=== PATIENT | male | born 1955 | race Caucasian/White ===

== ENCOUNTER 2017-07-11 17:05 | Inpatient (IN) ==
[2017-07-11] MEDS ORDERED: Nitroglycerin 0.4 MG TAB.SUBL SL ONE (17:19)
--- NOTE | 2017-07-11 17:22 | Emergency Department Note ---
Disposition Clinical Impression: Hyperglycemia, D-dimer, elevated, Small cell lung cancer Anemia Qualifiers: Anemia type: unspecified type Qualified Code(s): D64.9 - Anemia, unspecified Chest pain Qualifiers: Chest pain type: unspecified Qualified Code(s): R07.9 - Chest pain, unspecified Disposition: Admitted As Inpatient Condition: Fair Referrals: Jt Cárdenas DO [Primary Care Provider] - Forms: ED Satisfaction Letter General Adult HPI - General Chief complaint: ED Chest Pain Stated complaint: Chest Pain Time Seen by Provider: 07/11/17 17:14 Source: EMS Mode of arrival: EMS Limitations: no limitations Nursing Notes Reviewed: Yes Vital Signs Reviewed: Yes - History of Present Illness HPI Narrative: Patient is a 61-year-old male with a past medical history of lung cancer with metastases to the brain presenting to the emergency Department by squad for the complaint of left-sided chest pain that started yesterday morning. The patient states the pain is like a dull/pressure-like pain on his left side that does not radiate and is intermittent. States he does not notice exertion making the pain worse. Positive for nausea and diaphoresis. Denies cardiac history. Patient does not require home oxygen however the squad states that the patient was dropping into the mid 80s, however when instructed to take a deep breath the patient's saturation improved. States that his prognosis for his current cancer is 6 months. Pain Scale: 9 - Related Data Home Medications Medication Instructions Recorded Confirmed Atorvastatin [Lipitor] 40 mg PO HS 05/09/16 05/08/17 Cyanocobalamin (Vitamin B-12) 1,000 mcg SL DAILY 05/09/16 05/08/17 [Vitamin B-12] Quetiapine Fumarate [Seroquel] 400 mg PO HS 05/09/16 05/08/17 clonazePAM [Klonopin] 1 mg PO TID PRN 05/09/16 05/08/17 Acetaminophen [Non-Aspirin] 650 mg PO Q6H PRN 05/08/17 05/08/17 Bisacodyl [Dulcolax] 5 mg PO BID 05/08/17 05/08/17 Bisacodyl [Dulcolax] 10 mg RC DAILY PRN 05/08/17 05/08/17 BuPROPion [Wellbutrin] 75 mg PO DAILY 05/08/17 05/08/17 Dexamethasone 6 mg PO TID 05/08/17 05/08/17 Escitalopram [Lexapro] 20 mg PO DAILY 05/08/17 05/08/17 Famotidine [Heartburn Prevention] 20 mg PO BID 05/08/17 05/08/17 Mirtazapine [Remeron] 30 mg PO HS 05/08/17 05/08/17 Nicotine Patch [Nicoderm] 14 mg TD DAILY 05/08/17 05/08/17 Polyethylene Glycol 3350 [MiraLAX] 17 gm PO BID 05/08/17 05/08/17 Sennosides/Docusate Sodium 2 each PO BID 05/08/17 05/08/17 [Senna-Docusate Sodium Tablet] Tiotropium [Spiriva] 18 mcg IH DAILY 05/08/17 05/08/17 Allergies Allergy/AdvReac Type Severity Reaction Status Date / Time sertraline [From Zoloft] AdvReac See Verified 05/08/17 13:44 Comments All systems ED: reviewed and negative except as stated. Review of Systems: As Per HPI Constitutional: Denies: fever, chills Cardiovascular: Reports: chest pain Respiratory: Reports: dyspnea. Denies: cough Gastrointestinal: Reports: nausea. Denies: abdominal pain, vomiting Past Medical History - Past Medical History Attestation: Yes The following information was validated with the patient. Medical history: Reports: cancer, GERD, hyperlipidemia, other Surgical history: Reports: appendectomy, orthopedic, other Psychiatric history: Reports: anxiety, depression - Social History Smoking Status: Current every day smoker Smokeless Tobacco Status: No Alcohol use: Reports: none Drug use: Reports: none Physical Exam CONSTITUTIONAL: Patient is cachectic in appearance; A&O X 3, in no apparent distress. HEAD: Normocephalic; atraumatic EYES: PERRL, no scleral icterus NOSE: The nose is normal in appearance without rhinorrhea NECK: No JVD or distended neck veins RESP: Normal excursion, patient has wheezes bilaterally with coarse breath sounds. CARD: Tachycardia, regular rhythm, without murmurs, rub or gallop. ABD: Non-distended; non-tender, soft, without rigidity, rebound or guarding,no pulsatile mass CHEST: No pain with palpation SKIN: Normal for age and race; warm and dry without diaphoresis ; no apparent lesions EXTREMITIES: Pulses are 2 plus and equal times 4 extremities, peripheral edema of 1+ pitting bilaterally. No calf muscle pain - General Limitations: no limitations General appearance: alert, in no apparent distress Course Course Narrative: Plan is to perform a cardiac workup of the patient which will include chest x- ray, EKG and troponin. Due to the patient's tachycardia, cancer history and hypoxia we will order a d-dimer to evaluate for PE. Patient was also ordered aspirin and nitroglycerin trial for his chest pain. Patient also had course lung sounds bilaterally with wheezing we will order him a DuoNeb treatment and reevaluate. - Reevaluation(s) Reevaluation #1: Patient found to have an elevated d-dimer a CTA of the chest was ordered. Hemoglobin was critical at 5.7 a type and screen was ordered and packed red blood cell transfusion was ordered. Patient also had an elevated glucose in the 500s. Will consider giving subcutaneous insulin to decrease blood glucose Time: 18:55 Reevaluation #2: Patient signed out to night team. Pending labs discussed. Pending CTA chest and blood transfusion. 2 pRBC ordered. Time: 18:56 Vital Signs Temperature 97.4 F L 07/11/17 17:09 Pulse Rate 101 07/11/17 17:09 Respiratory Rate 20 07/11/17 17:09 Blood Pressure 122/62 07/11/17 17:09 O2 Sat by Pulse Oximetry 100 07/11/17 17:09 Temperature 97.4 F L 07/11/17 17:09 Pulse Rate 113 07/11/17 18:06 Respiratory Rate 18 07/11/17 18:27 Blood Pressure 102/60 07/11/17 18:06 O2 Sat by Pulse Oximetry 94 07/11/17 18:27 Oxygen Delivery Oxygen Delivery Nasal Cannula Medical Decision Making - Medical Records Medical records reviewed: Yes I reviewed the patient's medical records. - Lab Data Lab results reviewed: Yes I reviewed the patient's lab results. Result diagrams: 07/11/17 17:42 07/11/17 17:42 Lab Results 07/11/17 07/11/17 07/11/17 Range/Units 17:42 17:42 17:42 WBC 23.5 H (4.3-11.1) K/mcL RBC 1.84 L (4.19-5.50) M/mcL Hgb 5.6 L* (12.9-16.9) g/dL Hct 19.3 L (37.5-50.1) % MCV 104.9 H (83.0-100.0) fL MCH 30.4 (28.0-33.3) pg MCHC 29.0 L (31.6-35.5) g/dL RDW 18.4 H (11.5-14.5) % Plt Count 520 H (140-400) K/mcL MPV 10.2 (9.4-12.4) fL Seg Neutrophils % 77.0 % Band Neutrophils % 5.0 H (0-4) % Lymphocytes % 11.0 % Monocytes % 3.0 % Metamyelocytes % 2.0 H (0) % Myelocytes % 1.0 H (0) % Promyelocytes % 1.0 H (0) % Neutrophils # 19.3 H (1.6-8.9) K/mcL Lymphocytes # 2.6 (0.6-4.6) K/mcL Monocytes # 0.7 (0.0-1.3) K/mcL Nucleated RBCs/100 WBC 6.0 H (0) /100 WBC Platelet Estimate Increased H (Normal) Polychromasia 2+ A (Not Present) Hypochromasia Present A (Not Present) Anisocytosis 2+ A (Not Present) D-Dimer (0-500) ng/mLFEU Sodium 141 (136-145) mEq/L Potassium 3.4 L (3.5-5.1) mEq/L Chloride 105 (98-107) mEq/L Carbon Dioxide 21 L (23-29) mEq/L BUN 14 (8-23) mg/dL Creatinine 0.77 (0.70-1.30) mg/dL Est GFR ( Amer) > 60 (> 60) Est GFR (Non-Af Amer) > 60 (> 60) BUN/Creatinine Ratio 18 (6-26) Glucose 516 H* (70-105) mg/dL Calculated Osmolality 316 H (280-300) Calcium 7.9 L (8.6-10.3) mg/dL Troponin I 0.03 (< 0.04) ng/mL B-Natriuretic Peptide 94 (Less than 100) pg/mL 07/11/17 Range/Units 17:42 WBC (4.3-11.1) K/mcL RBC (4.19-5.50) M/mcL Hgb (12.9-16.9) g/dL Hct (37.5-50.1) % MCV (83.0-100.0) fL MCH (28.0-33.3) pg MCHC (31.6-35.5) g/dL RDW (11.5-14.5) % Plt Count (140-400) K/mcL MPV (9.4-12.4) fL Seg Neutrophils % % Band Neutrophils % (0-4) % Lymphocytes % % Monocytes % % Metamyelocytes % (0) % Myelocytes % (0) % Promyelocytes % (0) % Neutrophils # (1.6-8.9) K/mcL Lymphocytes # (0.6-4.6) K/mcL Monocytes # (0.0-1.3) K/mcL Nucleated RBCs/100 WBC (0) /100 WBC Platelet Estimate (Normal) Polychromasia (Not Present) Hypochromasia (Not Present) Anisocytosis (Not Present) D-Dimer 1936 H (0-500) ng/mLFEU Sodium (136-145) mEq/L Potassium (3.5-5.1) mEq/L Chloride (98-107) mEq/L Carbon Dioxide (23-29) mEq/L BUN (8-23) mg/dL Creatinine (0.70-1.30) mg/dL Est GFR ( Amer) (> 60) Est GFR (Non-Af Amer) (> 60) BUN/Creatinine Ratio (6-26) Glucose (70-105) mg/dL Calculated Osmolality (280-300) Calcium (8.6-10.3) mg/dL Troponin I (< 0.04) ng/mL B-Natriuretic Peptide (Less than 100) pg/mL - Radiology Data Radiology results reviewed: Yes I reviewed the patient's radiology results. Chest X-Ray 07/11/17 17:19 IMPRESSION: Nonspecific opacities left upper lobe and right lung base may be related to pneumonia. Calcific atherosclerotic disease aorta. Sequela from old granulomatous disease. D/ / Gavin Quezada / Gavin Quezada Interpreting Provider: Gavin Quezada - EKG Data EKG #1 EKG attestation: Yes I reviewed and interpreted this EKG. EKG results narrative: EKG done at 17:14 shows sinus tachycardia with occasional PVC. Normal axis. OR is 159, QRS is 86, QT is 313 and QTc is 372 these are within normal limits. No signs of ST elevation, depression or Q waves present nonspecific ST and T- wave abnormalities. EKG is mostly unchanged from prior EKG done on 05/01/2017. Joan - Joan Transition of Care: To Dr. Griffith [facility] ED resident. Situation: Demographics, MOA Background: Presenting Complaint, Relevant PMH, Meds, & Allergies Assessment: Vital Signs, Course and respsone to treatment, Exam Concerns, Patient/Family Expectation, Pertinant Lab Results, Outstanding Labs Recommendation: Barrier(s) to disposition, Recommendation based on pending studies, treatments, or consults SAustin Report Given to: Dr. Gladis Franco Repor Time: 19:00
[2017-07-11] MEDS ORDERED: Ipratropium/Albuterol Neb 3 ML IH ONE (17:44)
[2017-07-11 18:15] LABS: Mean Platelet Volume 10.2 fL (9.4-12.4)
[2017-07-11 18:16] LABS: Hematocrit 19.3 % (37.5-50.1); Mean Corpuscular Hemoglobin 30.4 pg (28.0-33.3); Mean Corpuscular Volume 104.9 fL (83.0-100.0); Monocytes # 0.7 K/mcL (0.0-1.3); Platelet Count 520 K/mcL (140-400); Red Blood Count 1.84 M/mcL (4.19-5.50); Red Cell Distribution Width 18.4 % (11.5-14.5)
--- NOTE | 2017-07-11 18:32 | Emergency Department Note ---
START Narrative - START START: I examined this patient and my medical decision-making was reviewed with the SNACK STEWARDESS/PA/Advanced Practice Nurse/Resident Physician. I agree with the documented findings, disposition and treatment plan as described except to the extent set forth below. Patient does have lung cancer was has metastasized to brain and presents today with chest pain or shortness of breath and a d-dimer is elevated and a CTA will be done and the patient will have his evaluation continued. I did review the EKG. Test results are pending. [id number]
[2017-07-11 18:34] LABS: Troponin I 0.03 ng/mL (< 0.04)
[2017-07-11 18:41] LABS: BUN/Creatinine Ratio 18 (6-26); Blood Urea Nitrogen 14 mg/dL (8-23); Calcium 7.9 mg/dL (8.6-10.3); Carbon Dioxide 21 mEq/L (23-29); Chloride 105 mEq/L (98-107); Glucose 516 mg/dL (70-105); Osmolality,Calculated 316 (280-300); Potassium 3.4 mEq/L (3.5-5.1); Sodium 141 mEq/L (136-145); eGFR For African Americans > 60 (> 60); eGFR For Non-African Americans > 60 (> 60)
[2017-07-11 18:46] LABS: Hemoglobin 5.6 g/dL (12.9-16.9)
[2017-07-11] MEDS ORDERED: 0.9 % Sodium Chloride 1,000 ML IVC ONE (18:47)
[2017-07-11] MEDS ORDERED: 0.9 % Sodium Chloride 1,000 ML ONE (18:48)
[2017-07-11 18:51] LABS: Lymphocytes # 2.6 K/mcL (0.6-4.6); Neutrophils # 19.3 K/mcL (1.6-8.9)
[2017-07-11 18:52] LABS: Anisocytosis 2+ (Not Present); Hypochromasia Present (Not Present); Platelet Estimate Increased (Normal); Polychromasia 2+ (Not Present)
--- NOTE | 2017-07-11 19:10 | Emergency Department Note ---
Disposition Clinical Impression: Hyperglycemia, D-dimer, elevated, Small cell lung cancer Anemia Qualifiers: Anemia type: unspecified type Qualified Code(s): D64.9 - Anemia, unspecified Chest pain Qualifiers: Chest pain type: unspecified Qualified Code(s): R07.9 - Chest pain, unspecified Pneumonia Qualifiers: Pneumonia type: due to unspecified organism Laterality: left Lung location: upper lobe of lung Qualified Code(s): J18.1 - Lobar pneumonia, unspecified organism Disposition: Admitted As Inpatient Condition: Fair Time of Disposition: 21:56 Chest Pain HPI - General Chief Complaint: ED Chest Pain Stated Complaint: Chest Pain Time Seen by Provider: 07/11/17 17:14 Source: EMS Mode of arrival: EMS Limitations: no limitations Vital Signs Reviewed: Yes Nursing Notes Reviewed: Yes - History of Present Illness Severity scale (1-10): 9 - Related Data Home Medications Medication Instructions Recorded Confirmed Atorvastatin [Lipitor] 40 mg PO HS 05/09/16 05/08/17 Cyanocobalamin (Vitamin B-12) 1,000 mcg SL DAILY 05/09/16 05/08/17 [Vitamin B-12] Quetiapine Fumarate [Seroquel] 400 mg PO HS 05/09/16 05/08/17 clonazePAM [Klonopin] 1 mg PO TID PRN 05/09/16 05/08/17 Acetaminophen [Non-Aspirin] 650 mg PO Q6H PRN 05/08/17 05/08/17 Bisacodyl [Dulcolax] 5 mg PO BID 05/08/17 05/08/17 Bisacodyl [Dulcolax] 10 mg RC DAILY PRN 05/08/17 05/08/17 BuPROPion [Wellbutrin] 75 mg PO DAILY 05/08/17 05/08/17 Dexamethasone 6 mg PO TID 05/08/17 05/08/17 Escitalopram [Lexapro] 20 mg PO DAILY 05/08/17 05/08/17 Famotidine [Heartburn Prevention] 20 mg PO BID 05/08/17 05/08/17 Mirtazapine [Remeron] 30 mg PO HS 05/08/17 05/08/17 Nicotine Patch [Nicoderm] 14 mg TD DAILY 05/08/17 05/08/17 Polyethylene Glycol 3350 [MiraLAX] 17 gm PO BID 05/08/17 05/08/17 Sennosides/Docusate Sodium 2 each PO BID 05/08/17 05/08/17 [Senna-Docusate Sodium Tablet] Tiotropium [Spiriva] 18 mcg IH DAILY 05/08/17 05/08/17 Allergies Allergy/AdvReac Type Severity Reaction Status Date / Time sertraline [From Zoloft] AdvReac See Verified 05/08/17 13:44 Comments Constitutional: Denies: fever, chills Cardiovascular: Reports: chest pain Respiratory: Reports: dyspnea. Denies: cough Gastrointestinal: Reports: nausea. Denies: abdominal pain, vomiting Chest Pain PMH - Past Medical History Medical history: Reports: cancer, GERD, hyperlipidemia, other Surgical history: Reports: appendectomy, orthopedic, other Psychiatric history: Reports: anxiety, depression - Social History Smoking Status: Current every day smoker Alcohol use: Reports: none Drug use: Reports: none Physical Exam - General Limitations: no limitations General appearance: alert, in no apparent distress - Head Head exam: atraumatic, normocephalic, normal inspection - Eye Eye exam: Present: PERRL, EOMI - ENT ENT exam: normal exam, normal oropharynx, mucous membranes moist - Neck Neck exam: Present: normal inspection, full ROM, trachea midline - Chest Chest inspection: Present: normal inspection, symmetric chest wall rise - Respiratory Respiratory exam: Present: normal lung sounds bilaterally - Cardiovascular Cardiovascular exam: Present: normal rhythm, tachycardia, normal heart sounds - Abdominal Exam Abdominal exam: Present: soft, Non-Tender. Absent: tenderness, distention, guarding, rebound, rigidity - Extremities Exam Extremities exam: Present: normal inspection, full ROM. Absent: tenderness, pedal edema - Neurological Exam Neurological exam: Present: alert, oriented X3 - Psychiatric Psychiatric exam: Present: normal affect, normal mood - Skin Skin exam: Present: warm, dry, intact, normal color Course Course Narrative: Patient was a sign out from a previous team, Dr. Reyes and Dr. Conde. Please see their notes for any additional details. Patient mildly tachycardic. Otherwise, the rest of the vitals were within normal limits. Physical exam shows a mildly cachectic male with pallor. In summary, patient is a 61-year-old male with a history of lung cancer with metastases to the brain that presented today due to left-sided chest discomfort that started yesterday morning, described as a dull pressure with no radiation some nausea and diaphoresis and worsened with exertion, some association with shortness of breath. Patient was found to have anemia on workup. He has been typed and screened and has 2 units of blood ordered by previous team. Currently waiting on a CTA of the chest and they will admit for anemia and chest pain. 21:57 CT was negative for pulmonary embolism but did show possible left upper lobe pneumonia. He also has pulmonary nodules present. He does have a known history of small cell lung cancer. Results were discussed with the patient. We will admit the patient for chest pain rule out, anemia, pneumonia. Chest X-Ray 07/11/17 17:19 IMPRESSION: Nonspecific opacities left upper lobe and right lung base may be related to pneumonia. Calcific atherosclerotic disease aorta. Sequela from old granulomatous disease. D/ / Gavin Quezada / Gavin Quezada Interpreting Provider: Gavin Quezada Chest CTA 07/11/17 18:28 IMPRESSION: 1. No evidence of pulmonary embolism. 2. Area of consolidation in the left upper lobe suspicious for pneumonia. 3. Emphysema. 4. Previously seen pulmonary lesion in the left upper lobe is currently obscured by the consolidation. Recommend follow-up chest CT after resolution of acute symptoms to assess stability. 5. A 0.8 cm pulmonary nodule in the medial left lower lobe. 6. Stable low-density lesion in visualized liver dome. Etiology is uncertain. Consider further assessment with dedicated liver protocol CT or MRI for further characterization as indicated. 7. Mildly enlarged mediastinal and left hilar lymph nodes. Some are calcified and may represent sequela of prior granulomatous disease. D/ / 07/11/2017 20:20:05 Aren Garcia MD / adrienne Interpreting Provider: Aren Garcia MD Vital Signs Temperature 97.4 F L 07/11/17 17:09 Pulse Rate 101 07/11/17 17:09 Respiratory Rate 20 07/11/17 17:09 Blood Pressure 122/62 07/11/17 17:09 O2 Sat by Pulse Oximetry 100 07/11/17 17:09 Temperature 97.9 F 07/11/17 22:48 Pulse Rate 97 07/11/17 22:48 Respiratory Rate 21 07/11/17 22:48 Blood Pressure 109/66 07/11/17 22:48 O2 Sat by Pulse Oximetry 100 07/11/17 21:15 Oxygen Delivery Oxygen Delivery Nasal Cannula Chest Pain - MDM Narrative Medical decision making narrative: Patient was a sign out from a previous team, Dr. Reyes and Dr. Conde. Please see their notes for any additional details. Patient mildly tachycardic. Otherwise, the rest of the vitals were within normal limits. Physical exam shows a mildly cachectic male with pallor. In summary, patient is a 61-year-old male with a history of lung cancer with metastases to the brain that presented today due to left-sided chest discomfort that started yesterday morning, described as a dull pressure with no radiation some nausea and diaphoresis and worsened with exertion, some association with shortness of breath. Patient was found to have anemia on workup. He has been typed and screened and has 2 units of blood ordered by previous team. Currently waiting on a CTA of the chest and they will admit for anemia and chest pain. 21:57 CT was negative for pulmonary embolism but did show possible left upper lobe pneumonia. He also has pulmonary nodules present. He does have a known history of small cell lung cancer. Results were discussed with the patient. We will admit the patient for chest pain rule out, anemia, pneumonia. - Medical Records Medical records reviewed: Yes I reviewed the patient's medical records. - Lab Data Lab results reviewed: Yes I reviewed the patient's lab results. Result diagrams: 07/11/17 17:42 07/11/17 17:42 Lab Results 07/11/17 07/11/17 07/11/17 Range/Units 17:42 17:42 17:42 WBC 23.5 H (4.3-11.1) K/mcL RBC 1.84 L (4.19-5.50) M/mcL Hgb 5.6 L* (12.9-16.9) g/dL Hct 19.3 L (37.5-50.1) % MCV 104.9 H (83.0-100.0) fL MCH 30.4 (28.0-33.3) pg MCHC 29.0 L (31.6-35.5) g/dL RDW 18.4 H (11.5-14.5) % Plt Count 520 H (140-400) K/mcL MPV 10.2 (9.4-12.4) fL Seg Neutrophils % 77.0 % Band Neutrophils % 5.0 H (0-4) % Lymphocytes % 11.0 % Monocytes % 3.0 % Metamyelocytes % 2.0 H (0) % Myelocytes % 1.0 H (0) % Promyelocytes % 1.0 H (0) % Neutrophils # 19.3 H (1.6-8.9) K/mcL Lymphocytes # 2.6 (0.6-4.6) K/mcL Monocytes # 0.7 (0.0-1.3) K/mcL Nucleated RBCs/100 WBC 6.0 H (0) /100 WBC Platelet Estimate Increased H (Normal) Polychromasia 2+ A (Not Present) Hypochromasia Present A (Not Present) Anisocytosis 2+ A (Not Present) D-Dimer (0-500) ng/mLFEU Sodium 141 (136-145) mEq/L Potassium 3.4 L (3.5-5.1) mEq/L Chloride 105 (98-107) mEq/L Carbon Dioxide 21 L (23-29) mEq/L BUN 14 (8-23) mg/dL Creatinine 0.77 (0.70-1.30) mg/dL Est GFR ( Amer) > 60 (> 60) Est GFR (Non-Af Amer) > 60 (> 60) BUN/Creatinine Ratio 18 (6-26) Glucose 516 H* (70-105) mg/dL Calculated Osmolality 316 H (280-300) Calcium 7.9 L (8.6-10.3) mg/dL Troponin I 0.03 (< 0.04) ng/mL B-Natriuretic Peptide 94 (Less than 100) pg/mL Blood Type Antibody Screen Crossmatch 07/11/17 07/11/17 Range/Units 17:42 19:35 WBC (4.3-11.1) K/mcL RBC (4.19-5.50) M/mcL Hgb (12.9-16.9) g/dL Hct (37.5-50.1) % MCV (83.0-100.0) fL MCH (28.0-33.3) pg MCHC (31.6-35.5) g/dL RDW (11.5-14.5) % Plt Count (140-400) K/mcL MPV (9.4-12.4) fL Seg Neutrophils % % Band Neutrophils % (0-4) % Lymphocytes % % Monocytes % % Metamyelocytes % (0) % Myelocytes % (0) % Promyelocytes % (0) % Neutrophils # (1.6-8.9) K/mcL Lymphocytes # (0.6-4.6) K/mcL Monocytes # (0.0-1.3) K/mcL Nucleated RBCs/100 WBC (0) /100 WBC Platelet Estimate (Normal) Polychromasia (Not Present) Hypochromasia (Not Present) Anisocytosis (Not Present) D-Dimer 1936 H (0-500) ng/mLFEU Sodium (136-145) mEq/L Potassium (3.5-5.1) mEq/L Chloride (98-107) mEq/L Carbon Dioxide (23-29) mEq/L BUN (8-23) mg/dL Creatinine (0.70-1.30) mg/dL Est GFR ( Amer) (> 60) Est GFR (Non-Af Amer) (> 60) BUN/Creatinine Ratio (6-26) Glucose (70-105) mg/dL Calculated Osmolality (280-300) Calcium (8.6-10.3) mg/dL Troponin I (< 0.04) ng/mL B-Natriuretic Peptide (Less than 100) pg/mL Blood Type O POSITIVE Antibody Screen NEGATIVE Crossmatch See Detail - Radiology Data Radiology results reviewed: Yes I reviewed the patient's radiology results. Chest X-Ray 07/11/17 17:19 IMPRESSION: Nonspecific opacities left upper lobe and right lung base may be related to pneumonia. Calcific atherosclerotic disease aorta. Sequela from old granulomatous disease. D/ / Gavin Quezada / Gavin Quezada Interpreting Provider: Gavni Quezada Chest CTA 07/11/17 18:28 IMPRESSION: 1. No evidence of pulmonary embolism. 2. Area of consolidation in the left upper lobe suspicious for pneumonia. 3. Emphysema. 4. Previously seen pulmonary lesion in the left upper lobe is currently obscured by the consolidation. Recommend follow-up chest CT after resolution of acute symptoms to assess stability. 5. A 0.8 cm pulmonary nodule in the medial left lower lobe. 6. Stable low-density lesion in visualized liver dome. Etiology is uncertain. Consider further assessment with dedicated liver protocol CT or MRI for further characterization as indicated. 7. Mildly enlarged mediastinal and left hilar lymph nodes. Some are calcified and may represent sequela of prior granulomatous disease. D/ / 07/11/2017 20:20:05 Aren Garcia MD / adrienne Interpreting Provider: Aren Garcia MD Critical Care Time Critical Care Time: Yes Total Critical Care Time: 60 Attestation: Critical care performed: Time is exclusive of separately billable procedures. Time includes: direct patient care, patient reassessment, coordination of patient care, interpretation of data (laboratory data, radiology data, and respiratory data), review of patient's medical records, medical consultation and documentation of patient care. Procedures included in critical care time: Procedures excluded from critical care time: S.B.A.R. - Brain.Alex.ARula Situation: Demographics, MOA Background: Presenting Complaint, Relevant PMH, Meds, & Allergies Assessment: Vital Signs, Course and respsone to treatment, Exam Concerns, Patient/Family Expectation, Pertinant Lab Results, Outstanding Labs Recommendation: Barrier(s) to disposition, Recommendation based on pending studies, treatments, or consults S.B.A.RMai Report Given to: Dr. Dread Franco Repor Time: 22:15 Attestation Statement - Attestation Attestation: I, Simeon Ely MD, personally evaluated this patient and discussed their management with the resident physician. I reviewed the resident's note and agree with the documented findings, medical decision making, and plan of care. This patient was signed out at shift change from Dr. Headley and Dr. Conde. Please refer to their notes for complete details of the history and physical examination. Patient has history of lung cancer with brain metastases. He is not receiving any chemotherapy or radiation. He presented for some chest pain and increased shortness of breath. At shift change patient is awaiting a CTA of the lungs. Patient was found to be anemic with a hemoglobin of 5 and blood is already been ordered. On examination patient is a well-developed thin male in no acute distress. He is alert and appropriate but is a little slow to answer questions and seems mildly confused. There is no cyanosis or diaphoresis. Mucous membranes are moist. Breath sounds are decreased bilaterally. Heart regular. Abdomen soft and nontender. Labs reviewed. CTA negative for pulmonary embolism. This showed left upper lobe consolidation. The hospitalist, Dr. Canada, was consulted and accepted admission of the patient.
[2017-07-11] MEDS ORDERED: Piperacillin/Tazobactam 3.375 GM in 0.9 % Sodium Chloride Mini Bag 100 ML IVPB ONE (21:11)
[2017-07-12] MEDS ORDERED: OXYCODONE Oral CONC 10 MG/0.5 ML ORAL.SYG SL PRN (01:04)
[2017-07-12] MEDS ORDERED: Naloxone 0.4 MG/ML INJ IVP PRN (01:04)
[2017-07-12] MEDS ORDERED: Dextrose Gel 15 GM PO PRN ×2 (01:10)
[2017-07-12] MEDS ORDERED: *HR* Dextrose 50 % in Water (Syg) 50 ML SYRINGE IVP PRN (01:10)
[2017-07-12] MEDS ORDERED: D5% in Water 1,000 ML IVC PRN (01:10)
--- NOTE | 2017-07-12 01:23 | Internal Med History&Physical ---
Date of Encounter: 07/12/17 Time of Encounter: 00:05 Assessment and Plan (1) DVT prophylaxis Current visit: Yes Status: Acute EPCD (2) GI bleed Current visit: Yes Status: Acute Patient has weakness and that dizziness.Drop of the hemoglobin level. Has a black stool 2 days ago. Consider GI bleeding. - FOBT - Keep patient nothing by mouth, IV fluid, IV PPI - Closely monitor vitals and H&H - We will consult GI or surgery for possible EGD. 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 We will consult palliative care to discuss hospice option with patient. (4) Anemia Current visit: Yes Status: Acute Acute anemia possibly due to acute blood loss from GI bleed. Continue PRBC transfusion. Closely monitor H&H Qualifiers: Anemia type: unspecified type Qualified Code(s): D64.9 - Anemia, unspecified (5) Chest pain Current visit: Yes Status: Acute Patient has chest and epigastric area pain most likely due to lung cancer. Will rule out ACS by - Continue cardiac monitoring - Track 3 sets of troponin Qualifiers: Chest pain type: unspecified Qualified Code(s): R07.9 - Chest pain, unspecified (6) Hyperglycemia Current visit: Yes Status: Acute Glucose level over 500 in ER. Patient denies history of diabetes. Will place patient on sliding scale insulin and check hemoglobin A1c a.m. (7) D-dimer, elevated Current visit: Yes Status: Acute Patient has CTA, negative for PE (8) Pneumonia Current visit: Yes Status: Acute CTA shows left upper lobe pneumonia. We will treat the patient with Vanco and Zosyn for healthcare associated pneumonia. - We will give patient supportive treatment with oxygen. Qualifiers: Pneumonia type: due to unspecified organism Laterality: left Lung location: upper lobe of lung Qualified Code(s): J18.1 - Lobar pneumonia, unspecified organism Internal Medicine - H&P: HPI Chief complaint: Weakness Admitted From: Home Plans for Post Hospital Care: Home History of present illness: Mr. Quintero is a 61 year old male with history of small cell lung cancer with brain metastasis present to ER for generalized weakness for 1 day. Patient has generalized weakness for long time because of cancer but worsening today. Patient feels dizzy, lightheaded, nausea, but no vomiting. Patient has a chronic abdominal and the chest pain because of cancer. Today, he feels the pain is getting worse. Patient has a nonproductive cough. He has no fever. He has no diarrhea. His last bowel movement was 2 days ago, he said the stool color is black. In emergency room, he was a found hemoglobin low to 5.6, which was normal 2 months ago. Patient also was found d-dimer positive, following CTA shows no PE but pneumonia. Patient was admitted for healthcare associated pneumonia. I have discussed the CODE STATUS with patient. She clearly told me that he does not want CPR if cardiac arrest happens. He accepted intubation for several days if necessary but said he does not want "on the machine" for long time. DNR CCA placed based on patient's wish. Past Med Surg Social Fam HX - Past Medical History Medical history: cancer, GERD, hyperlipidemia, other Psychiatric history: anxiety, depression - Past Surgical History Surgical History: appendectomy, orthopedic, other - Social History Smoking Status: Current every day smoker Smokeless Tobacco Status: No Alcohol use: none Drug use: none - Family History Mother History Unknown: Yes Internal Medicine - H&P: Meds Atorvastatin [Lipitor] 40 mg PO HS 05/09/16 [History] Cyanocobalamin (Vitamin B-12) [Vitamin B-12] 1,000 mcg SL DAILY 05/09/16 [ History] Quetiapine Fumarate [Seroquel] 400 mg PO HS 05/09/16 [History] clonazePAM [Klonopin] 1 mg PO TID PRN 05/09/16 [History] Acetaminophen [Non-Aspirin] 650 mg PO Q6H PRN 05/08/17 [History] Bisacodyl [Dulcolax] 5 mg PO BID 05/08/17 [History] Bisacodyl [Dulcolax] 10 mg RC DAILY PRN 05/08/17 [History] BuPROPion [Wellbutrin] 75 mg PO DAILY 05/08/17 [History] Dexamethasone 6 mg PO TID 05/08/17 [History] Escitalopram [Lexapro] 20 mg PO DAILY 05/08/17 [History] Famotidine [Heartburn Prevention] 20 mg PO BID 05/08/17 [History] Mirtazapine [Remeron] 30 mg PO HS 05/08/17 [History] Nicotine Patch [Nicoderm] 14 mg TD DAILY 05/08/17 [History] Polyethylene Glycol 3350 [MiraLAX] 17 gm PO BID 05/08/17 [History] Sennosides/Docusate Sodium [Senna-Docusate Sodium Tablet] 2 each PO BID [History] Tiotropium [Spiriva] 18 mcg IH DAILY 05/08/17 [History] 3 Allergy/AdvReac Type Severity Reaction Status Date / Time sertraline [From Zoloft] AdvReac See Verified 05/08/17 13:44 Comments All Systems PM: A 10-system review of systems was performed and is negative for pertinent findings except as documented above in the HPI. - Constitutional Vitals: Temp Pulse Resp BP Pulse Ox 97.9 F 87 16 105/62 100 07/11/17 23:54 07/11/17 23:54 07/11/17 23:54 07/11/17 23:54 07/11/17 23:54 General appearance: Present: A&O X 3, no acute distress, answers questions appropriately - Head Head exam: Present: atraumatic, normocephalic - Eye Eye exam: Present: PERRL, conjuntiva pink, sclera anicteric Pupils: Present: PERRL - Neck Neck exam general surgery: Present: supple, trachea midline. Absent: lymphadenopathy - Respiratory Respiratory exam: Present: CTAB. Absent: accessory muscle use, rales, rhonchi, wheezes - Cardiovascular Cardiovascular exam: Present: RRR, +S1, +S2. Absent: diastolic murmur, gallop, rubs, systolic murmur - GI/Abdominal GI/Abdominal exam: Present: normal bowel sounds, soft, tenderness (Tenderness on the Epigastric area), no peritoneal signs. Absent: distended - Extremities Exam Extremities exam: Present: warm, radial pulses palpable and symmetrical. Absent : calf tenderness, cyanotic, pedal edema - Neurological Exam Neurological exam: Present: CN II-XII intact, oriented X3, no focal deficits. Absent: pronater drift, facial droop, speech deficit - Skin Skin exam: Present: dry, intact Internal Med - H&P Results - Labs CBC & Chem 7: 07/11/17 17:42 03/16/18 17:42 - EKG Data -: EKG Interpreted by Myself EKG shows normal: sinus rhythm Rate: tachycardia
[2017-07-12 02:26] LABS: BUN/Creatinine Ratio 17 (6-26); Blood Urea Nitrogen 11 mg/dL (8-23); Calcium 7.2 mg/dL (8.6-10.3); Carbon Dioxide 24 mEq/L (23-29); Chloride 107 mEq/L (98-107); Glucose 428 mg/dL (70-105); Magnesium 1.8 mg/dL (1.6-2.6); Osmolality,Calculated 306 (280-300); Potassium 3.3 mEq/L (3.5-5.1); Sodium 139 mEq/L (136-145); eGFR For African Americans > 60 (> 60); eGFR For Non-African Americans > 60 (> 60)
[2017-07-12] MEDS ORDERED: Ipratropium/Albuterol Neb 3 ML IH PRN (02:28)
[2017-07-12 02:29] LABS: Basophils % 0.3 %; Eosinophils % 0.1 %; Hematocrit 25.1 % (37.5-50.1); Hemoglobin 7.9 g/dL (12.9-16.9); Immature Granulocytes % 4.6 % (0-4); Lymphocytes # 2.2 K/mcL (0.6-4.6); Lymphocytes % 13.7 %; Mean Corpuscular HGB Conc 31.5 g/dL (31.6-35.5); Mean Corpuscular Hemoglobin 29.6 pg (28.0-33.3); Mean Platelet Volume 9.9 fL (9.4-12.4); Monocytes # 0.6 K/mcL (0.0-1.3); Monocytes % 3.6 %; Neutrophils # 12.4 K/mcL (1.6-8.9); Nucleated Red Blood Cells 7.7 /100 WBC (0); Platelet Count 353 K/mcL (140-400); Red Blood Count 2.67 M/mcL (4.19-5.50); Red Cell Distribution Width 17.1 % (11.5-14.5); Segmented Neutrophils % 77.7 %
[2017-07-12] MEDS ORDERED: 0.9 % Sodium Chloride 250 ML ONE (03:28)
[2017-07-12] MEDS: Ipratropium/Albuterol Neb 3 ML IH SCH ×4 (04:07→22:08)
[2017-07-12] MEDS: Pantoprazole 40 MG VIAL IVP SCH ×2 (05:54→18:23)
[2017-07-12] MEDS: Insulin LISPRO 300 UNITS/3 ML VIAL SQ SCH ×3 (05:54→18:23)
[2017-07-12 07:16] LABS: Hematocrit 27.8 % (37.5-50.1); Hemoglobin 9.1 g/dL (12.9-16.9)
[2017-07-12] MEDS: Piperacillin/Tazobactam 3.375 GM in 0.9 % Sodium Chloride Mini Bag 100 ML IVPB SCH ×2 (11:34→18:22)
[2017-07-12] MEDS: Hydrocortisone Sodium Succ 100 MG/2 ML VIAL IVP SCH ×2 (11:34→18:22)
[2017-07-12] MEDS: 0.9 % Sodium Chloride 1,000 ML IVC SCH ×2 (11:53→20:56)
--- NOTE | 2017-07-12 12:37 | General Surgery Consult Note ---
Date of Encounter: 07/12/17 Time of Encounter: 12:13 History of Present Illness Consult date: 07/12/17 Reason for consult: other (melena; anemia) Requesting physician: Santino William History of present illness: Called to see patient melena and profound anemia with hemoglobin 5.6, hematocrit 19.3. Hemoglobin and hematocrit 05/01/1812.8/42.3. Patient has a known medical history of lung cancer with brain metastases who was transferred to [facility] Emergency Department by squad for complaints of left-sided chest pain. There was also reported nausea and diaphoresis. The evaluation included CTA chest which demonstrated no evidence of pulmonary embolism; multiple borderline enlarged mediastinal lymph nodes, enlarged left hilar lymph nodes and moderate centrilobular emphysema and consolidation in the left upper lobe. The consolidation of the left upper lobe is stable from a previous study and apparently obscures a previously visualized lung lesion/cancer in the left upper lobe. The patient has been admitted and transfused with 3 units packed red cells. Hemoglobin is currently 9.1 with hematocrit 28.7. The patient apparently has been on steroids (dexamethasone) for his metastatic disease; review of the patient's medication list indicates that he is on famotidine 20 mg by mouth twice a day. Other significant medical history notable for PTSD, bipolar disorder; anxiety, depression, GERD, hyperlipidemia Surgical history: Appendectomy, orthopedic procedures, and left inguinal hernia repair with mesh 05/17/16. Social history: Admitted smoker one pack per day for over 40 years; no acknowledged alcohol or drug use. On physical examination this is a 61-year-old patient who appears older than his stated age. He is in no acute distress Skin is warm, dry; without obvious jaundice Lungs: Breath sounds and rales left lung; right site clear Cardiac: Regular rate, no appreciable murmur Abdomen: Soft, nondistended, nontender. No appreciable hepatosplenomegaly or intra-abdominal masses. No rebound. Active bowel sounds Bilateral groins and pubic area notable for multiple nodules and wounds - possibly cutaneous metastases Extremities: Decubiti bilateral medial knees Laboratories: White count 23.5 on presentation; repeat 15.9. Most recent hemoglobin 9.1, hematocrit 27.8. Platelet count 353,000. PT INR dated 05/01/17 did not demonstrate evidence of anticoagulation no recent data is available Electrolytes notable for potassium of 3.3, other lecture lites, BUN, creatinine within normal limits. Impression: 61-year-old male, resident of a retirement transferred to [facility] by squad for complaints of left-sided chest pain. She has a known history of lung cancer with brain metastases. CODE STATUS DNR COMFORT CARE ARREST. Patient with new onset melena consistent with an upper GI source. The patient was recently diagnosed with pneumonia and is on steroids increasing risk of PUD causing the patient's acute blood loss anemia and melena. Treatment options include EGD with appropriate intervention such as cautery, administration of epinephrine, application of hemoclips. Risks of such procedure include further hemorrhage infection, aspiration, respiratory failure , and perforation. Should such a complication develop surgical intervention would then become necessary which is well beyond the patient's wishes as indicated by his CODE STATUS. Alternatively, the patient can be managed medically such as Protonix infusion and monitored. This was discussed with the patient in detail. He has chosen to defer invasive therapy such as EGD. Recommendations: Resume diet (full liquids) Monitor H&H Provide comfort care Consult palliative care/hospice Possible EGD in AM if patient demonstrates hemodynamic instability / continued bleeding and patient consents to the procedure Past Med Surg Social Fam HX - Past Medical History Medical history: cancer, GERD, hyperlipidemia, other Psychiatric history: anxiety, depression - Past Surgical History Surgical History: appendectomy, orthopedic, other - Social History Smoking Status: Current every day smoker Packs per day: 1 Smokeless Tobacco Status: No Alcohol use: none Drug use: none - Family History Mother History Unknown: Yes Medications and Allergies Atorvastatin [Lipitor] 40 mg PO HS 05/09/16 [History] Cyanocobalamin (Vitamin B-12) [Vitamin B-12] 1,000 mcg SL DAILY 05/09/16 [ History] Quetiapine Fumarate [Seroquel] 400 mg PO HS 05/09/16 [History] clonazePAM [Klonopin] 1 mg PO TID PRN 05/09/16 [History] Acetaminophen [Non-Aspirin] 650 mg PO Q6H PRN 05/08/17 [History] Bisacodyl [Dulcolax] 5 mg PO BID 05/08/17 [History] Bisacodyl [Dulcolax] 10 mg RC DAILY PRN 05/08/17 [History] BuPROPion [Wellbutrin] 75 mg PO DAILY 05/08/17 [History] Escitalopram [Lexapro] 20 mg PO DAILY 05/08/17 [History] Famotidine [Heartburn Prevention] 20 mg PO BID 05/08/17 [History] Mirtazapine [Remeron] 30 mg PO HS 05/08/17 [History] Umeclidinium Boswell [Incruse Ellipta] 1 puff IH DAILY 07/12/17 [History] 3 Allergy/AdvReac Type Severity Reaction Status Date / Time sertraline [From Zoloft] AdvReac Diarrhea Verified 07/12/17 09:27 Review of Systems All systems PM: The remainder of the systems were reviewed and are negative General Surgery Exam Initial Vital Signs Temp Pulse Resp BP Pulse Ox 97.4 F L 101 20 122/62 100 07/11/17 17:09 07/11/17 17:09 07/11/17 17:09 07/11/17 17:09 07/11/17 17:09 Exam Initial Vital Signs Temp Pulse Resp BP Pulse Ox 97.4 F L 101 20 122/62 100 07/11/17 17:09 07/11/17 17:09 07/11/17 17:09 07/11/17 17:09 07/11/17 17:09 Results - Labs 07/12/17 07:04 07/12/17 01:54 Abnormal lab results WBC 15.9 K/mcL (4.3-11.1) H 07/12/17 01:54 RBC 2.67 M/mcL (4.19-5.50) L 07/12/17 01:54 Hgb 9.1 g/dL (12.9-16.9) L 07/12/17 07:04 Hct 27.8 % (37.5-50.1) L 07/12/17 07:04 MCHC 31.5 g/dL (31.6-35.5) L 07/12/17 01:54 RDW 17.1 % (11.5-14.5) H 07/12/17 01:54 Immature Gran % 4.6 % (0-4) H 07/12/17 01:54 Band Neutrophils % 5.0 % (0-4) H 07/11/17 17:42 Metamyelocytes % 2.0 % (0) H 07/11/17 17:42 Myelocytes % 1.0 % (0) H 07/11/17 17:42 Promyelocytes % 1.0 % (0) H 07/11/17 17:42 Neutrophils # 12.4 K/mcL (1.6-8.9) H 07/12/17 01:54 Nucleated RBCs/100 WBC 7.7 /100 WBC (0) H 07/12/17 01:54 Platelet Estimate Increased (Normal) H 07/11/17 17:42 Polychromasia 2+ (Not Present) A 07/11/17 17:42 Hypochromasia Present (Not Present) A 07/11/17 17:42 Anisocytosis 2+ (Not Present) A 07/11/17 17:42 D-Dimer 1936 ng/mLFEU (0-500) H 07/11/17 17:42 Potassium 3.3 mEq/L (3.5-5.1) L 07/12/17 01:54 Creatinine 0.64 mg/dL (0.70-1.30) L 07/12/17 01:54 Glucose 428 mg/dL (70-105) H 07/12/17 01:54 POC Glucose 106 (58-89) H 07/12/17 11:00 Calculated Osmolality 306 (280-300) H 07/12/17 01:54 Calcium 7.2 mg/dL (8.6-10.3) L 07/12/17 01:54 Diabetes panel 07/12/17 Range/Units 01:54 Sodium 139 (136-145) mEq/L Potassium 3.3 L (3.5-5.1) mEq/L Chloride 107 (98-107) mEq/L Carbon Dioxide 24 (23-29) mEq/L BUN 11 (8-23) mg/dL Creatinine 0.64 L (0.70-1.30) mg/dL Glucose 428 H (70-105) mg/dL Calcium 7.2 L (8.6-10.3) mg/dL Calcium panel 07/12/17 Range/Units 01:54 Calcium 7.2 L (8.6-10.3) mg/dL Pituitary panel 07/12/17 Range/Units 01:54 Sodium 139 (136-145) mEq/L Potassium 3.3 L (3.5-5.1) mEq/L Chloride 107 (98-107) mEq/L Carbon Dioxide 24 (23-29) mEq/L BUN 11 (8-23) mg/dL Creatinine 0.64 L (0.70-1.30) mg/dL Glucose 428 H (70-105) mg/dL Calcium 7.2 L (8.6-10.3) mg/dL Adrenal panel 07/12/17 Range/Units 01:54 Sodium 139 (136-145) mEq/L Potassium 3.3 L (3.5-5.1) mEq/L Chloride 107 (98-107) mEq/L Carbon Dioxide 24 (23-29) mEq/L BUN 11 (8-23) mg/dL Creatinine 0.64 L (0.70-1.30) mg/dL Glucose 428 H (70-105) mg/dL Calcium 7.2 L (8.6-10.3) mg/dL All other labs normal. Consult Discharge Plan - Plan Referrals: Jt Cárdenas DO [Primary Care Provider] -
[2017-07-12 13:39] LABS: Basophils # 0.1 K/mcL (0.0-0.2); Basophils % 0.3 %; Eosinophils % 0.1 %; Hemoglobin 9.8 g/dL (12.9-16.9); Lymphocytes # 1.9 K/mcL (0.6-4.6); Lymphocytes % 10.8 %; Mean Corpuscular HGB Conc 32.7 g/dL (31.6-35.5); Mean Corpuscular Hemoglobin 29.8 pg (28.0-33.3); Mean Corpuscular Volume 91.2 fL (83.0-100.0); Monocytes # 0.5 K/mcL (0.0-1.3); Neutrophils # 14.7 K/mcL (1.6-8.9); Nucleated Red Blood Cells 5.5 /100 WBC (0); Platelet Count 295 K/mcL (140-400); Red Blood Count 3.29 M/mcL (4.19-5.50); Red Cell Distribution Width 17.9 % (11.5-14.5); Segmented Neutrophils % 82.8 %
[2017-07-12 19:46] LABS: Hematocrit 26.4 % (37.5-50.1); Hemoglobin 8.5 g/dL (12.9-16.9)
[2017-07-13] MEDS: Piperacillin/Tazobactam 3.375 GM in 0.9 % Sodium Chloride Mini Bag 100 ML IVPB SCH ×3 (00:05→15:57)
[2017-07-13] MEDS: Hydrocortisone Sodium Succ 100 MG/2 ML VIAL IVP SCH ×3 (00:05→15:57)
--- NOTE | 2017-07-13 00:23 | Internal Med Progress Note ---
Date of Encounter: 07/12/17 Time of Encounter: 15:07 - Assessment and plan (1) Abscess of skin Current Visit: Yes Status: Acute Assessment and plan: Multiple tiny abscesses/comedones on body. Will use warm compresses and routine wound care. No need for antibiotics for this due to insignificant size. Qualifiers: Site of cutaneous abscess: other site Qualified Code(s): L02.818 - Cutaneous abscess of other sites (2) Skin ulcer Current Visit: Yes Status: Acute Assessment and plan: Multiple ulcerated areas on front and back side. Continue routine wound care. Qualifiers: Non-pressure ulcer stage: limited to breakdown of skin Qualified Code(s): L98.491 - Non-pressure chronic ulcer of skin of other sites limited to breakdown of skin (3) Acute metabolic encephalopathy Current Visit: Yes Status: Acute Assessment and plan: Patient alert but not fully oriented. Likely multifactorial, given blood loss, hyperglycemia, and extensive cancer history with metastasis. Will continue supportive care and treat underlying causes. (4) Anemia Current Visit: Yes Status: Acute Assessment and plan: Improved this AM after blood transfusions. Likely secondary to GI bleed. See plan below. Qualifiers: Anemia type: unspecified type Qualified Code(s): D64.9 - Anemia, unspecified (5) Chest pain Current Visit: Yes Status: Resolved Assessment and plan: Patient had chest and epigastric area pain most likely due to lung cancer. Cardiac enzymes trended negative. Continue telemetry. Qualifiers: Chest pain type: unspecified Qualified Code(s): R07.9 - Chest pain, unspecified (6) D-dimer, elevated Current Visit: Yes Status: Acute Assessment and plan: CT angio negative for pulmonary embolism. (7) DVT prophylaxis Current Visit: Yes Status: Acute Assessment and plan: Continue SCDs. Will hold off on anticoagulation due to suspected GI bleed. (8) GI bleed Current Visit: Yes Status: Acute Assessment and plan: Keep NPO. GI/surgery consulted; appreciate input. Continue IVF. Continue IV protonix. Monitor vitals closely. H/H improved this AM after transfusions. Patient unsure about what measures he wants done. He is DNR/CCA, but may elect for procedures that increase comfort, and stopping a bleed may be one of them. Repeat CBC in AM. Qualifiers: GI bleed type/associated pathology: melena Qualified Code(s): K92.1 - Melena (9) Hyperglycemia Current Visit: Yes Status: Acute Assessment and plan: No previous history of DM. Will continue accuchecks and SSI QID AC/HS. Repeat BMP in AM. (10) Pneumonia Current Visit: Yes Status: Acute Assessment and plan: CTA showed left upper lobe pneumonia. Continue Vancomycin and Zosyn for healthcare associated pneumonia. Continue supplemental O2 PRN. 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 We will consult palliative care on Friday to discuss hospice option with patient. - Time Spent With Patient 25 - 35 minutes - Subjective Interval history: Patient had no acute events overnight. He states that he is feeling "ok" at this time. He has no complaints. I discussed consulting GI and considering EGD to determine source of bleeding and stopping it. He states that he does not want anything done. However, when discussed further he states that he may want it done. He also may not be fully competent at this time due to some confusion. - Constitutional Vitals: Temp Pulse Resp BP Pulse Ox 98.0 F 86 17 114/66 95 07/12/17 23:10 07/12/17 23:10 07/12/17 23:10 07/12/17 23:10 07/12/17 23:10 General appearance: Present: cooperative, A&O X 2, pleasant, no acute distress, answers questions appropriately - Respiratory Respiratory exam: Present: CTAB. Absent: accessory muscle use, rales, rhonchi, wheezes Additional comments: Normal WOB - Cardiovascular Cardiovascular exam: Present: RRR, +S1, +S2. Absent: diastolic murmur, gallop, rubs, systolic murmur Additional comments: No BLE edema - GI/Abdominal GI/Abdominal exam: Present: normal bowel sounds, soft. Absent: distended, hepatomegaly, mass, splenomegaly, tenderness - Psychiatric Psychiatric exam: Present: normal affect, normal mood. Absent: anxious, depressed - Skin Skin exam: Present: dry, warm. Absent: cyanosis, rash Additional comments: Multiple fluctuant, erythematous, raised areas with surrounding induration on left pelvic area likely representing tiny abscesses. Area of ulceration on left pelvic area and back side with no drainage or bleeding. Internal Medicine: Result - Labs CBC & Chem 7: 07/12/17 19:25 07/12/17 01:54 Labs: Short CBC 07/12/17 07/12/17 07/12/17 Range/Units 01:54 07:04 13:26 WBC 15.9 H 17.8 H (4.3-11.1) K/mcL Hgb 7.9 L D 9.1 L 9.8 L (12.9-16.9) g/dL Hct 25.1 L 27.8 L 30.0 L (37.5-50.1) % Plt Count 353 295 (140-400) K/mcL Neutrophils # 12.4 H 14.7 H (1.6-8.9) K/mcL 07/12/17 Range/Units 19:25 WBC (4.3-11.1) K/mcL Hgb 8.5 L (12.9-16.9) g/dL Hct 26.4 L (37.5-50.1) % Plt Count (140-400) K/mcL Neutrophils # (1.6-8.9) K/mcL BMP 07/12/17 01:54 Sodium 139 Potassium 3.3 L Chloride 107 Carbon Dioxide 24 BUN 11 Creatinine 0.64 L Glucose 428 H Calcium 7.2 L Cardiac Enzymes 07/12/17 07/12/17 Range/Units 01:54 07:04 Troponin I < 0.03 < 0.03 (< 0.04) ng/mL - ABG Interpretation ABG results: PT/INR, D-dimer D-Dimer 1936 ng/mLFEU (0-500) H 07/11/17 17:42 - VTE Reasons for not Prescribing Prophylaxis: Medical contraindication (Suspected GI bleed with anemia) Documentation of Mechanical Device: Intermittent pneumatic compression device Consult Discharge Plan - Plan Referrals: Jt Cárdenas DO [Primary Care Provider] -
[2017-07-13] MEDS: Insulin LISPRO 300 UNITS/3 ML VIAL SQ SCH ×4 (00:46→23:54)
[2017-07-13] MEDS: Ipratropium/Albuterol Neb 3 ML IH SCH ×4 (04:00→21:51)
[2017-07-13 05:11] LABS: Basophils % 0.1 %; Hematocrit 26.6 % (37.5-50.1); Hemoglobin 8.3 g/dL (12.9-16.9); Immature Granulocytes % 2.3 % (0-4); Lymphocytes # 1.6 K/mcL (0.6-4.6); Lymphocytes % 16.2 %; Mean Corpuscular HGB Conc 31.2 g/dL (31.6-35.5); Mean Corpuscular Hemoglobin 29.2 pg (28.0-33.3); Mean Corpuscular Volume 93.7 fL (83.0-100.0); Mean Platelet Volume 9.9 fL (9.4-12.4); Monocytes # 0.3 K/mcL (0.0-1.3); Monocytes % 2.8 %; Neutrophils # 7.6 K/mcL (1.6-8.9); Nucleated Red Blood Cells 3.3 /100 WBC (0); Platelet Count 299 K/mcL (140-400); Red Blood Count 2.84 M/mcL (4.19-5.50); Red Cell Distribution Width 18.6 % (11.5-14.5); Segmented Neutrophils % 78.6 %
[2017-07-13] MEDS: Pantoprazole 40 MG VIAL IVP SCH ×2 (05:16→18:02)
[2017-07-13 05:30] LABS: BUN/Creatinine Ratio 19 (6-26); Blood Urea Nitrogen 11 mg/dL (8-23); Calcium 7.2 mg/dL (8.6-10.3); Carbon Dioxide 23 mEq/L (23-29); Chloride 111 mEq/L (98-107); Glucose 247 mg/dL (70-105); Osmolality,Calculated 296 (280-300); Potassium 3.4 mEq/L (3.5-5.1); Sodium 139 mEq/L (136-145); eGFR For African Americans > 60 (> 60); eGFR For Non-African Americans > 60 (> 60)
[2017-07-13] MEDS: 0.9 % Sodium Chloride 1,000 ML IVC SCH ×2 (07:28→18:02)
[2017-07-13 09:36] LABS: Estimated Average Glucose 209 mg/dl; Hemoglobin A1C 8.9 %
--- NOTE | 2017-07-13 10:18 | General Surgery Progress Note ---
Date of Encounter: 07/13/17 Time of Encounter: 10:05 Subjective Narrative: General Surgery Covering Gastroenterology Patient indicating that he does not want further intervention or invasive diagnostic procedures, including EGD Most recent Hemoglobin 8.3/hematocrit 26.6- essentially stable ranging from 8.3-9.8. Recommendation: Resume diet as tolerated Comfort Care as needed Objective Vital Signs - Last 8 Hours Temp Pulse Resp BP Pulse Ox 07/13/17 07:29 97.8 F 56 18 105/64 98 07/13/17 04:01 20 96 07/13/17 03:29 97.5 F L 67 18 103/69 97 Intake and Output 07/12/17 07/13/17 07/13/17 23:59 07:59 15:59 Intake Total 1880 / 1880 1350 / 1350 Output Total 450 / 450 0 / 0 Balance 1430 / 1430 1350 / 1350 Intake: IV Fluids 1100 / 1100 1350 / 1350 0.9 % Sodium Chloride 1,000 ML 1000 / 1000 1000 / 1000 @ 100 mls/hr IVC .Q10H DAVID Rx#: [id number] Zosyn 3.375 GM In 0.9 % Sodium 100 / 100 100 / 100 Chloride (Mini-Bag +) 100 ML @ 25 mls/hr IVPB Q8HR DAVID Rx#: [id number] Vancocin 1,250 MG In 0.9 % 250 / 250 Sodium Chloride 250 ML @ 166.67 mls/hr IVPB Q12H DAVID Rx#: [id number] Oral 780 / 780 0 / 0 Output: Urine 450 / 450 0 / 0 Other: Meal Dinner Percent of Meal Consumed 100% # Urine Diapers 1 Blood Glucose* 391 260 - Labs 07/13/17 04:34 07/13/17 04:34 Diabetes panel 07/13/17 Range/Units 04:34 Sodium 139 (136-145) mEq/L Potassium 3.4 L (3.5-5.1) mEq/L Chloride 111 H (98-107) mEq/L Carbon Dioxide 23 (23-29) mEq/L BUN 11 (8-23) mg/dL Creatinine 0.58 L (0.70-1.30) mg/dL Glucose 247 H (70-105) mg/dL Calcium 7.2 L (8.6-10.3) mg/dL Calcium panel 07/13/17 Range/Units 04:34 Calcium 7.2 L (8.6-10.3) mg/dL Pituitary panel 07/13/17 Range/Units 04:34 Sodium 139 (136-145) mEq/L Potassium 3.4 L (3.5-5.1) mEq/L Chloride 111 H (98-107) mEq/L Carbon Dioxide 23 (23-29) mEq/L BUN 11 (8-23) mg/dL Creatinine 0.58 L (0.70-1.30) mg/dL Glucose 247 H (70-105) mg/dL Calcium 7.2 L (8.6-10.3) mg/dL Adrenal panel 07/13/17 Range/Units 04:34 Sodium 139 (136-145) mEq/L Potassium 3.4 L (3.5-5.1) mEq/L Chloride 111 H (98-107) mEq/L Carbon Dioxide 23 (23-29) mEq/L BUN 11 (8-23) mg/dL Creatinine 0.58 L (0.70-1.30) mg/dL Glucose 247 H (70-105) mg/dL Calcium 7.2 L (8.6-10.3) mg/dL - VTE Reasons for not Prescribing Prophylaxis: Medical contraindication (Suspected GI bleed with anemia) Documentation of Mechanical Device: Intermittent pneumatic compression device Consult Discharge Plan - Plan Referrals: Jt Cárdenas DO [Primary Care Provider] -
[2017-07-13] MEDS ORDERED: D5% in Water 1,000 ML IVC PRN (19:27)
[2017-07-13] MEDS ORDERED: *HR* Dextrose 50 % in Water (Syg) 50 ML SYRINGE IVP PRN (19:27)
[2017-07-13] MEDS ORDERED: Dextrose Gel 15 GM PO PRN ×2 (19:27)
[2017-07-13] MEDS: *HR* OxyCODONE/APAP 5/325 TABLET PO PRN (19:44)
[2017-07-14] MEDS: Piperacillin/Tazobactam 3.375 GM in 0.9 % Sodium Chloride Mini Bag 100 ML IVPB SCH ×3 (00:15→16:50)
[2017-07-14] MEDS: Insulin DETEMIR 100 UNIT/ML X5UNITS SQ SCH ×3 (00:16→20:55)
[2017-07-14] MEDS: Hydrocortisone Sodium Succ 100 MG/2 ML VIAL IVP SCH ×4 (00:16→20:54)
[2017-07-14 00:18] LABS: Hematocrit 25.6 % (37.5-50.1); Hemoglobin 8.2 g/dL (12.9-16.9)
--- NOTE | 2017-07-14 00:34 | Event Note ---
Date of Encounter: 07/13/17 Time of Encounter: 20:29 Alerted by pts. nurse regarding pts. hyperglycemia. Patient on Solu-Cortef IV and glucose ranging from high 400s to low 500s. Ordered sliding scale with 9 units to be given at bedtime. After administration patient's blood glucose remained in low 400s. Nurse verified patient has been eating meals so Levemir 10 units SQ twice a day ordered with first dose to be given tonight with BG checks every 2 hours. Patient admitted with GI bleeding as well an H&H had slight drop this evening. Timed H&H's ordered. Pt. to be monitored closely for continued hyperglycemia and changes in H/H.
[2017-07-14] MEDS: Ipratropium/Albuterol Neb 3 ML IH SCH ×4 (03:52→22:36)
[2017-07-14 04:14] LABS: Basophils % 0.1 %; Hematocrit 26.4 % (37.5-50.1); Hemoglobin 8.4 g/dL (12.9-16.9); Immature Granulocytes % 1.6 % (0-4); Lymphocytes # 1.4 K/mcL (0.6-4.6); Lymphocytes % 17.9 %; Mean Corpuscular HGB Conc 31.8 g/dL (31.6-35.5); Mean Corpuscular Volume 94.3 fL (83.0-100.0); Mean Platelet Volume 9.9 fL (9.4-12.4); Monocytes # 0.3 K/mcL (0.0-1.3); Monocytes % 3.4 %; Neutrophils # 5.9 K/mcL (1.6-8.9); Nucleated Red Blood Cells 1.6 /100 WBC (0); Platelet Count 327 K/mcL (140-400); Red Cell Distribution Width 19.6 % (11.5-14.5)
[2017-07-14 04:34] LABS: BUN/Creatinine Ratio 20 (6-26); Blood Urea Nitrogen 13 mg/dL (8-23); Calcium 7.1 mg/dL (8.6-10.3); Carbon Dioxide 22 mEq/L (23-29); Chloride 111 mEq/L (98-107); Glucose 297 mg/dL (70-105); Osmolality,Calculated 297 (280-300); Potassium 3.9 mEq/L (3.5-5.1); Sodium 138 mEq/L (136-145); eGFR For African Americans > 60 (> 60); eGFR For Non-African Americans > 60 (> 60)
[2017-07-14] MEDS: Pantoprazole 40 MG VIAL IVP SCH ×2 (05:32→16:49)
--- NOTE | 2017-07-14 08:08 | Internal Med Progress Note ---
Date of Encounter: 07/13/17 Time of Encounter: 17:07 - Assessment and plan (1) Abscess of skin Current Visit: Yes Status: Acute Assessment and plan: Multiple tiny abscesses/comedones on body. Will use warm compresses and routine wound care. On vancomycin and zosyn for pneumonia as per below. Qualifiers: Site of cutaneous abscess: other site Qualified Code(s): L02.818 - Cutaneous abscess of other sites (2) Skin ulcer Current Visit: Yes Status: Acute Assessment and plan: Multiple ulcerated areas on front and back side. Continue routine wound care. Qualifiers: Non-pressure ulcer stage: limited to breakdown of skin Qualified Code(s): L98.491 - Non-pressure chronic ulcer of skin of other sites limited to breakdown of skin (3) Acute metabolic encephalopathy Current Visit: Yes Status: Resolved Assessment and plan: Patient alert and fully oriented today. Was likely multifactorial, given blood loss, hyperglycemia, and extensive cancer history with metastasis. Will continue supportive care and treat underlying causes. (4) Anemia Current Visit: Yes Status: Acute Assessment and plan: Stable this AM. S/P 2 units PRBCs after admission. Likely secondary to GI bleed. See plan below. Qualifiers: Anemia type: unspecified type Qualified Code(s): D64.9 - Anemia, unspecified (5) Chest pain Current Visit: Yes Status: Resolved Assessment and plan: Patient had chest and epigastric area pain most likely due to lung cancer. Cardiac enzymes trended negative. Continue telemetry. Qualifiers: Chest pain type: unspecified Qualified Code(s): R07.9 - Chest pain, unspecified (6) D-dimer, elevated Current Visit: Yes Status: Acute Assessment and plan: CT angio negative for pulmonary embolism. (7) DVT prophylaxis Current Visit: Yes Status: Acute Assessment and plan: Continue SCDs. Will hold off on anticoagulation due to suspected GI bleed. (8) GI bleed Current Visit: Yes Status: Acute Assessment and plan: Keep NPO. GI/surgery consulted; appreciate input. Continue IVF. Continue IV protonix. Monitor vitals closely. H/H improved this AM after transfusions. Patient unsure about what measures he wants done. He is DNR/CCA, but may elect for procedures that increase comfort, and stopping a bleed may be one of them. Repeat CBC in AM. Qualifiers: GI bleed type/associated pathology: melena Qualified Code(s): K92.1 - Melena (9) Hyperglycemia Current Visit: Yes Status: Acute Assessment and plan: No previous history of DM. Will continue accuchecks and SSI QID AC/HS. Start diabetic diet per surgery. Repeat BMP in AM. (10) Pneumonia Current Visit: Yes Status: Acute Assessment and plan: CTA showed left upper lobe pneumonia. Continue Vancomycin and Zosyn for healthcare associated pneumonia. Continue supplemental O2 PRN. 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 We will consult palliative care on Friday to discuss hospice options with patient. - Time Spent With Patient less than 15 minutes - Subjective Interval history: Patient had no acute events overnight. He states that he is feeling better today. He has no complaints. He seems more alert and oriented; conversing appropriately today. He tells me that he spoke with surgeon and does not want anything invasive done. He still wants to talk to palliative care. - Constitutional Vitals: Temp Pulse Resp BP Pulse Ox 97.8 F 65 16 114/72 94 07/14/17 07:03 07/14/17 07:03 07/14/17 07:03 07/14/17 07:03 07/14/17 07:03 General appearance: Present: cooperative, A&O X 2, pleasant, no acute distress, answers questions appropriately - Respiratory Respiratory exam: Present: CTAB. Absent: accessory muscle use, rales, rhonchi, wheezes Additional comments: Normal WOB - Cardiovascular Cardiovascular exam: Present: RRR, +S1, +S2. Absent: diastolic murmur, gallop, rubs, systolic murmur Additional comments: No BLE edema - GI/Abdominal GI/Abdominal exam: Present: normal bowel sounds, soft. Absent: distended, hepatomegaly, mass, splenomegaly, tenderness - Psychiatric Psychiatric exam: Present: normal affect, normal mood. Absent: anxious, depressed - Skin Skin exam: Present: dry, warm. Absent: cyanosis, rash Additional comments: Multiple fluctuant, erythematous, raised areas with surrounding induration on left pelvic area likely representing tiny abscesses. Area of ulceration on left pelvic area and back side with no drainage or bleeding. Internal Medicine: Result - Labs CBC & Chem 7: 07/14/17 02:59 07/14/17 02:59 Labs: Short CBC 07/13/17 07/14/17 Range/Units 23:57 02:59 WBC 7.7 (4.3-11.1) K/mcL Hgb 8.2 L 8.4 L (12.9-16.9) g/dL Hct 25.6 L 26.4 L (37.5-50.1) % Plt Count 327 (140-400) K/mcL Neutrophils # 5.9 (1.6-8.9) K/mcL BMP 07/14/17 02:59 Sodium 138 Potassium 3.9 Chloride 111 H Carbon Dioxide 22 L BUN 13 Creatinine 0.66 L Glucose 297 H Calcium 7.1 L - ABG Interpretation ABG results: PT/INR, D-dimer D-Dimer 1936 ng/mLFEU (0-500) H 07/11/17 17:42 - VTE Reasons for not Prescribing Prophylaxis: Medical contraindication (Suspected GI bleed with anemia) Documentation of Mechanical Device: Intermittent pneumatic compression device Consult Discharge Plan - Plan Referrals: Jt Cárdenas DO [Primary Care Provider] -
[2017-07-14] MEDS: Insulin LISPRO 300 UNITS/3 ML VIAL SQ SCH ×4 (08:20→20:55)
[2017-07-14] MEDS: *HR* OxyCODONE/APAP 5/325 TABLET PO PRN ×2 (08:30→20:54)
--- NOTE | 2017-07-14 09:25 | Palliative - Consult Note ---
<Ash [employer] - Last Filed: 07/14/17 14:23> Date of Encounter: 07/14/17 Time of Encounter: 09:13 - Assessment and Plan (1) Goals of care, counseling/discussion Current Visit: Yes Status: Acute Assessment and plan: Patient lives by himself and his closest family members live in [place]. He does not have a POA, but does have a living will. Plan: Dr. Benedict has spoken with patient extensively about various options regarding hospice care, what it entails, and options for hospice services in this area. At this time, patient states that he would like to think about whether or not he is interested in hospice care at this time. We will see him again tomorrow and continue with these discussions as needed. (2) Anemia Current Visit: Yes Status: Acute Assessment and plan: Symptomatic anemia secondary to suspected G.I. bleed. Patient has been seen by general surgery, and he has opted out of receiving any invasive procedures at this time. Patient is currently on Protonix b.i.d. and is being medically managed. s/p transfusion after units packed red blood cells. Qualifiers: Anemia type: unspecified type Qualified Code(s): D64.9 - Anemia, unspecified (3) GI bleed Current Visit: Yes Status: Acute Assessment and plan: Plan as above. Qualifiers: GI bleed type/associated pathology: melena Qualified Code(s): K92.1 - Melena (4) Pneumonia Current Visit: Yes Status: Acute Assessment and plan: CTA showed areas of consolidation and left upper lobe. Patient is on vancomycin and Zosyn. Management per primary service. Qualifiers: Pneumonia type: due to unspecified organism Laterality: left Lung location: upper lobe of lung Qualified Code(s): J18.1 - Lobar pneumonia, unspecified organism (5) DVT prophylaxis Current Visit: Yes Status: Acute Assessment and plan: EP CD Palliative-CN HPI - Data of Consult Patient: new to practice Consult date: 07/14/17 Requesting Physician: Santino William Primary Care Provider: Jt Cárdenas, DO - Consult Narrative Palliative Care/Comfort Measures: Hospice care Reason for consult: discuss hospice care History of present illness: Mr. Quintero is a 61 year old male with past medical history of small cell lung cancer with metastasis to the brain, GRD, HLD, G.I. bleed. Patient arrived to [facility] on 07/12/17 with symptomatic anemia and was found to have hemoglobin of 5.6 , with complaints of chest pain. He was given 3 units packed red blood cells. Patient complained of new onset melena and consult to general surgery was made. Suspected source of bleeding is upper G.I. Option for EGD was given to the patient, however patient chose to differ invasive therapy at this time. Today patient reports some nausea without vomiting. denies diarrhea, fever, chills, ches painshoness of He does report some pain in his bilateral upper thighs CC: Santino William Past Med Surg Social Fam HX - Past Medical History Medical history: cancer, GERD, hyperlipidemia, other Psychiatric history: anxiety, depression - Past Surgical History Surgical History: appendectomy, orthopedic, other - Social History Smoking Status: Current every day smoker Packs per day: 1 Smokeless Tobacco Status: No Alcohol use: none Drug use: none - Family History Mother History Unknown: Yes Medications and Allergies Atorvastatin [Lipitor] 40 mg PO HS 05/09/16 [History] Cyanocobalamin (Vitamin B-12) [Vitamin B-12] 1,000 mcg SL DAILY 05/09/16 [ History] Quetiapine Fumarate [Seroquel] 400 mg PO HS 05/09/16 [History] clonazePAM [Klonopin] 1 mg PO TID PRN 05/09/16 [History] Acetaminophen [Non-Aspirin] 650 mg PO Q6H PRN 05/08/17 [History] Bisacodyl [Dulcolax] 5 mg PO BID 05/08/17 [History] Bisacodyl [Dulcolax] 10 mg RC DAILY PRN 05/08/17 [History] BuPROPion [Wellbutrin] 75 mg PO DAILY 05/08/17 [History] Escitalopram [Lexapro] 20 mg PO DAILY 05/08/17 [History] Famotidine [Heartburn Prevention] 20 mg PO BID 05/08/17 [History] Mirtazapine [Remeron] 30 mg PO HS 05/08/17 [History] Umeclidinium Nocatee [Incruse Ellipta] 1 puff IH DAILY 07/12/17 [History] 3 Allergy/AdvReac Type Severity Reaction Status Date / Time sertraline [From Zoloft] AdvReac Diarrhea Verified 07/12/17 09:27 All systems: reviewed and no additional remarkable complaints except as stated Palliative Care-Exam - Constitutional Vitals: Temp Pulse Resp BP Pulse Ox 97.8 F 65 16 114/72 94 07/14/17 07:03 07/14/17 07:03 07/14/17 07:03 07/14/17 07:03 07/14/17 07:03 General appearance: Present: thin - Head Head Exam: Present: atraumatic, normocephalic - Eye Eye exam: Present: PERRL - ENT ENT exam: Present: mucous membranes dry - Neck Neck exam: Present: normal inspection - Respiratory Respiratory exam: Present: CTAB - Cardiovascular Cardiovascular exam: Present: RRR, +S1, +S2 - GI/Abdominal Exam GI/Abdominal exam: Present: firm additional comments: Firm, nondistended, nontender, hypoactive bowel sounds. - Extremities Exam Additional comments: Areas of swelling, erythema, scabbing present in left upper arm, bilateral knees. - Neurological Exam Neurological exam: Present: alert, oriented X3 Internal Medicine - CN: Reslt - Labs CBC & Chem 7: 07/14/17 02:59 07/14/17 02:59 Labs: Short CBC 07/13/17 07/14/17 Range/Units 23:57 02:59 WBC 7.7 (4.3-11.1) K/mcL Hgb 8.2 L 8.4 L (12.9-16.9) g/dL Hct 25.6 L 26.4 L (37.5-50.1) % Plt Count 327 (140-400) K/mcL Neutrophils # 5.9 (1.6-8.9) K/mcL BMP 07/14/17 02:59 Sodium 138 Potassium 3.9 Chloride 111 H Carbon Dioxide 22 L BUN 13 Creatinine 0.66 L Glucose 297 H Calcium 7.1 L - ABG Interpretation ABG results: PT/INR, D-dimer D-Dimer 1936 ng/mLFEU (0-500) H 07/11/17 17:42 Consult Discharge Plan - Plan Referrals: Jt Cárdenas DO [Primary Care Provider] - Palliative Quality Palliative Quality: Screen for Code Status: Yes, Screen for Goals of Care: Yes, Screen for Pain: Yes, If Pain Regimen Started, Initiate Bowel Regimen: Yes, Screen for Nausea/Vomitting: Yes <Luis Fernando Benedict - Last Filed: 07/14/17 14:56> Date of Encounter: 07/14/17 Palliative-CN HPI - Data of Consult Requesting Physician: Santino William Primary Care Provider: Jt Cárdenas, DO - Consult Narrative History of present illness: Mr. Quintero is a 61 year old male CC: Santino William Palliative Care-Exam - Constitutional Vitals: Temp Pulse Resp BP Pulse Ox 97.7 F 66 20 105/66 96 07/14/17 10:52 07/14/17 10:52 07/14/17 10:52 07/14/17 10:52 07/14/17 10:52 Internal Medicine - CN: Reslt - Labs CBC & Chem 7: 07/14/17 02:59 07/14/17 02:59 Labs: Short CBC 07/13/17 07/14/17 Range/Units 23:57 02:59 WBC 7.7 (4.3-11.1) K/mcL Hgb 8.2 L 8.4 L (12.9-16.9) g/dL Hct 25.6 L 26.4 L (37.5-50.1) % Plt Count 327 (140-400) K/mcL Neutrophils # 5.9 (1.6-8.9) K/mcL BMP 07/14/17 02:59 Sodium 138 Potassium 3.9 Chloride 111 H Carbon Dioxide 22 L BUN 13 Creatinine 0.66 L Glucose 297 H Calcium 7.1 L - ABG Interpretation ABG results: PT/INR, D-dimer D-Dimer 1936 ng/mLFEU (0-500) H 07/11/17 17:42 - Attending Attestation I examined this patient and my medical decision-making was reviewed with the Resident Physician. I agree with the documented findings, disposition and treatment plan as described except to the extent set forth below.
[2017-07-14] MEDS ORDERED: Bisacodyl 10 MG RECTAL SUPPOSITORY RC PRN (18:02)
[2017-07-14] MEDS ORDERED: clonazePAM 1 MG TABLET PO PRN (18:02)
--- NOTE | 2017-07-14 18:28 | Internal Med Progress Note ---
Date of Encounter: 07/14/17 Time of Encounter: 18:26 - Assessment and plan (1) Abscess of skin Current Visit: Yes Status: Acute Assessment and plan: Multiple tiny abscesses/comedones on body. Will use warm compresses and routine wound care. On vancomycin and zosyn for pneumonia as per below. Qualifiers: Site of cutaneous abscess: other site Qualified Code(s): L02.818 - Cutaneous abscess of other sites (2) Skin ulcer Current Visit: Yes Status: Acute Assessment and plan: Multiple ulcerated areas on front and back side. Continue routine wound care. Qualifiers: Non-pressure ulcer stage: limited to breakdown of skin Qualified Code(s): L98.491 - Non-pressure chronic ulcer of skin of other sites limited to breakdown of skin (3) Acute metabolic encephalopathy Current Visit: Yes Status: Resolved Assessment and plan: Resolved. Was likely multifactorial, given blood loss, hyperglycemia, and extensive cancer history with metastasis. Will continue supportive care and treat underlying causes. (4) Anemia Current Visit: Yes Status: Acute Assessment and plan: Stable this AM. S/P 2 units PRBCs after admission. Likely secondary to GI bleed. See plan below. Qualifiers: Anemia type: unspecified type Qualified Code(s): D64.9 - Anemia, unspecified (5) Chest pain Current Visit: Yes Status: Resolved Assessment and plan: Patient had chest and epigastric area pain most likely due to lung cancer. Cardiac enzymes trended negative. Continue telemetry. Qualifiers: Chest pain type: unspecified Qualified Code(s): R07.9 - Chest pain, unspecified (6) D-dimer, elevated Current Visit: Yes Status: Acute Assessment and plan: CT angio negative for pulmonary embolism. (7) GI bleed Current Visit: Yes Status: Acute Assessment and plan: GI/surgery consulted; appreciate input. Patient not wanting any invasive procedures. Continue IV protonix. Monitor vitals closely. H/H stable s/p 2 units PRBCs. Repeat CBC in AM. Qualifiers: GI bleed type/associated pathology: melena Qualified Code(s): K92.1 - Melena (8) Hyperglycemia Current Visit: Yes Status: Acute Assessment and plan: Continue accuchecks and SSI QID AC/HS. Continue levemir added yesterday. Continue diabetic diet. 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 Palliative care consulted; appreciate input. I spoke with Dr. Benedict in person today; patient is currently considering hospice. (11) Renal insufficiency Current Visit: Yes Status: Chronic Assessment and plan: Start tapering hydrocortisone today. (12) DVT prophylaxis Current Visit: Yes Status: Acute Assessment and plan: Continue SCDs. Will hold off on anticoagulation due to suspected GI bleed. - Time Spent With Patient less than 15 minutes - Subjective Interval history: Patient had no acute events overnight. He is doing well today. His only complaint is some pain at his multiple wound sites. He now seems to be fully alert and oriented; conversing appropriately today. He denies chest pain, SOB, fever, or chills. - Constitutional Vitals: Temp Pulse Resp BP Pulse Ox 98 F 66 18 118/87 95 07/14/17 16:08 07/14/17 16:08 07/14/17 16:08 07/14/17 16:08 07/14/17 16:08 General appearance: Present: cooperative, A&O X 3, pleasant, no acute distress, answers questions appropriately - Respiratory Respiratory exam: Present: CTAB. Absent: accessory muscle use, rales, rhonchi, wheezes Additional comments: Normal WOB - Cardiovascular Cardiovascular exam: Present: RRR, +S1, +S2. Absent: diastolic murmur, gallop, rubs, systolic murmur Additional comments: No BLE edema - GI/Abdominal GI/Abdominal exam: Present: normal bowel sounds, soft. Absent: distended, hepatomegaly, mass, splenomegaly, tenderness - Psychiatric Psychiatric exam: Present: normal affect, normal mood. Absent: anxious, depressed - Skin Skin exam: Present: dry, warm. Absent: cyanosis, rash Additional comments: Multiple fluctuant, erythematous, raised areas with surrounding induration on left pelvic area likely representing tiny abscesses. Area of ulceration on left pelvic area and back side with no drainage or bleeding. Stage II pressure ulcer to coccyx (present on admission) Internal Medicine: Result - Labs CBC & Chem 7: 07/14/17 02:59 07/14/17 02:59 Labs: Short CBC 07/13/17 07/14/17 Range/Units 23:57 02:59 WBC 7.7 (4.3-11.1) K/mcL Hgb 8.2 L 8.4 L (12.9-16.9) g/dL Hct 25.6 L 26.4 L (37.5-50.1) % Plt Count 327 (140-400) K/mcL Neutrophils # 5.9 (1.6-8.9) K/mcL BMP 07/14/17 02:59 Sodium 138 Potassium 3.9 Chloride 111 H Carbon Dioxide 22 L BUN 13 Creatinine 0.66 L Glucose 297 H Calcium 7.1 L - ABG Interpretation ABG results: PT/INR, D-dimer D-Dimer 1936 ng/mLFEU (0-500) H 07/11/17 17:42 - VTE Reasons for not Prescribing Prophylaxis: Medical contraindication (Suspected GI bleed with anemia) Documentation of Mechanical Device: Graduated compression elastic hosiery Consult Discharge Plan - Plan Referrals: Jt Cárdenas DO [Primary Care Provider] -
[2017-07-14] MEDS: (Umeclidinium Bromide [Incruse Ellipta] 1 PUFF) IH SCH (20:22)
[2017-07-14] MEDS: Mirtazapine 15 MG TABLET PO SCH (20:54)
[2017-07-14] MEDS: Cyanocobalamin (B-12) 1,000 MCG TABLET PO SCH (20:54)
[2017-07-15] MEDS: Piperacillin/Tazobactam 3.375 GM in 0.9 % Sodium Chloride Mini Bag 100 ML IVPB SCH ×2 (01:11→09:46)
[2017-07-15] MEDS: Hydrocortisone Sodium Succ 100 MG/2 ML VIAL IVP SCH ×3 (02:23→16:36)
[2017-07-15] MEDS: Ipratropium/Albuterol Neb 3 ML IH SCH ×4 (03:39→21:39)
[2017-07-15 04:56] LABS: Hematocrit 26.4 % (37.5-50.1); Hemoglobin 8.2 g/dL (12.9-16.9); Immature Granulocytes % 2.8 % (0-4); Lymphocytes # 1.2 K/mcL (0.6-4.6); Lymphocytes % 21.9 %; Mean Corpuscular HGB Conc 31.1 g/dL (31.6-35.5); Mean Corpuscular Hemoglobin 29.8 pg (28.0-33.3); Mean Platelet Volume 9.7 fL (9.4-12.4); Monocytes # 0.3 K/mcL (0.0-1.3); Monocytes % 4.8 %; Nucleated Red Blood Cells 0.7 /100 WBC (0); Platelet Count 355 K/mcL (140-400); Red Blood Count 2.75 M/mcL (4.19-5.50); Red Cell Distribution Width 19.9 % (11.5-14.5); Segmented Neutrophils % 70.5 %
[2017-07-15] MEDS: Pantoprazole 40 MG VIAL IVP SCH (05:03)
[2017-07-15] MEDS ORDERED: Aminoglycoside Consult 1 EACH MC ONE (07:58)
[2017-07-15] MEDS: Insulin LISPRO 300 UNITS/3 ML VIAL SQ SCH ×4 (08:25→20:20)
[2017-07-15] MEDS: Insulin DETEMIR 100 UNIT/ML X5UNITS SQ SCH ×2 (08:25→20:20)
[2017-07-15] MEDS: Cyanocobalamin (B-12) 1,000 MCG TABLET PO SCH (08:25)
[2017-07-15] MEDS: (Umeclidinium Bromide [Incruse Ellipta] 1 PUFF) IH SCH (08:26)
--- NOTE | 2017-07-15 08:34 | Palliative Progress Note ---
<Ash Mart - Last Filed: 07/15/17 10:04> Date of Encounter: 07/15/17 Time of Encounter: 08:32 - Assessment and plan (1) Goals of care, counseling/discussion Current Visit: Yes Status: Acute Assessment and plan: Patient lives by himself and his closest family members live in [place]. He does not have a POA, but does have a living will. Plan: at this time, patient is still undecided regarding whether or not he would like hospice care. We will follow at a distance. call with questions. (2) Anemia Current Visit: Yes Status: Acute Assessment and plan: Symptomatic anemia secondary to suspected G.I. bleed. Patient has been seen by general surgery, and he has opted out of receiving any invasive procedures at this time. being medically managed. s/p transfusion of 3 units packed red blood cells. Qualifiers: Anemia type: unspecified type Qualified Code(s): D64.9 - Anemia, unspecified (3) GI bleed Current Visit: Yes Status: Acute Assessment and plan: Plan as above. Qualifiers: GI bleed type/associated pathology: melena Qualified Code(s): K92.1 - Melena (4) Pneumonia Current Visit: Yes Status: Acute Assessment and plan: CTA showed areas of consolidation and left upper lobe. Management per primary service Qualifiers: Pneumonia type: due to unspecified organism Laterality: left Lung location: upper lobe of lung Qualified Code(s): J18.1 - Lobar pneumonia, unspecified organism (5) DVT prophylaxis Current Visit: Yes Status: Acute Assessment and plan: EPCD - Time Spent With Patient Total time spent is greater than 50% in coordination of care (as documented) at patient's floor/unit and/or counseling patient: - Subjective Interval history: 61-year-old male evaluated at bedside. Denies nausea, vomiting, diarrhea, fever , chills. He does reports of pain about the same compared to yesterday. He denies any new problems today. - Constitutional Vitals: Abnormal lab results RBC 2.75 M/mcL (4.19-5.50) L 07/15/17 04:15 Hgb 8.2 g/dL (12.9-16.9) L 07/15/17 04:15 Hct 26.4 % (37.5-50.1) L 07/15/17 04:15 MCHC 31.1 g/dL (31.6-35.5) L 07/15/17 04:15 RDW 19.9 % (11.5-14.5) H 07/15/17 04:15 Band Neutrophils % 5.0 % (0-4) H 07/11/17 17:42 Metamyelocytes % 2.0 % (0) H 07/11/17 17:42 Myelocytes % 1.0 % (0) H 07/11/17 17:42 Promyelocytes % 1.0 % (0) H 07/11/17 17:42 Nucleated RBCs/100 WBC 0.7 /100 WBC (0) H 07/15/17 04:15 Platelet Estimate Increased (Normal) H 07/11/17 17:42 Polychromasia 2+ (Not Present) A 07/11/17 17:42 Hypochromasia Present (Not Present) A 07/11/17 17:42 Anisocytosis 2+ (Not Present) A 07/11/17 17:42 D-Dimer 1936 ng/mLFEU (0-500) H 07/11/17 17:42 Chloride 111 mEq/L (98-107) H 07/14/17 02:59 Carbon Dioxide 22 mEq/L (23-29) L 07/14/17 02:59 Creatinine 0.66 mg/dL (0.70-1.30) L 07/14/17 02:59 Glucose 297 mg/dL (70-105) H 07/14/17 02:59 POC Glucose 263 (58-89) H 07/14/17 19:21 Hemoglobin A1c 8.9 % (-5.6) H 07/12/17 01:54 Calcium 7.1 mg/dL (8.6-10.3) L 07/14/17 02:59 Stool Occult Blood Positive (Negative) A 07/14/17 09:40 General appearance: Present: average body habitus - Head Head exam: Present: atraumatic, normocephalic - Respiratory Respiratory exam: Present: CTAB - Cardiovascular Cardiovascular exam: Present: RRR, +S1, +S2 - GI/Abdominal GI/Abdominal exam: Present: normal bowel sounds, soft. Absent: distended, tenderness - Extremities Exam Additional comments: Non-pitting edema present on bilateral upper extremities. Bilateral lower extremities +1 pitting edema. - Neurological Exam Neurological exam: Present: alert, oriented X3, no focal deficits - Psychiatric Psychiatric exam: Present: normal affect, normal mood - Skin Skin exam: Absent: cyanosis Palliative Quality Palliative Quality: Screen for Code Status: Yes, Screen for Goals of Care: Yes, Screen for Pain: Yes, If Pain Regimen Started, Initiate Bowel Regimen: Yes, Screen for Nausea/Vomitting: Yes - Labs CBC & Chem 7: 07/15/17 04:15 07/14/17 02:59 Labs: Laboratory Results - last 24 hr 07/14/17 07/14/17 07/14/17 09:40 11:03 16:12 WBC RBC Hgb Hct MCV MCH MCHC RDW Plt Count MPV Immature Gran % Seg Neutrophils % Lymphocytes % Monocytes % Eosinophils % Basophils % Neutrophils # Lymphocytes # Monocytes # Eosinophils # Basophils # Nucleated RBCs/100 WBC POC Glucose 197 H 169 H Stool Occult Blood Positive A 07/14/17 07/15/17 19:21 04:15 WBC 5.7 RBC 2.75 L Hgb 8.2 L Hct 26.4 L MCV 96.0 MCH 29.8 MCHC 31.1 L RDW 19.9 H Plt Count 355 MPV 9.7 Immature Gran % 2.8 Seg Neutrophils % 70.5 Lymphocytes % 21.9 Monocytes % 4.8 Eosinophils % 0.0 Basophils % 0.0 Neutrophils # 4.0 Lymphocytes # 1.2 Monocytes # 0.3 Eosinophils # 0.0 Basophils # 0.0 Nucleated RBCs/100 WBC 0.7 H POC Glucose 263 H Stool Occult Blood - ABG Interpretation ABG results: PT/INR, D-dimer D-Dimer 1936 ng/mLFEU (0-500) H 07/11/17 17:42 Consult Discharge Plan - Plan Referrals: Jt Cárdeans DO [Primary Care Provider] - <Luis Fernando Benedict - Last Filed: 07/16/17 07:14> Date of Encounter: 07/16/17 - Time Spent With Patient Total time spent is greater than 50% in coordination of care (as documented) at patient's floor/unit and/or counseling patient: - Constitutional Vitals: Abnormal lab results RBC 2.75 M/mcL (4.19-5.50) L 07/15/17 04:15 Hgb 8.2 g/dL (12.9-16.9) L 07/15/17 04:15 Hct 26.4 % (37.5-50.1) L 07/15/17 04:15 MCHC 31.1 g/dL (31.6-35.5) L 07/15/17 04:15 RDW 19.9 % (11.5-14.5) H 07/15/17 04:15 Band Neutrophils % 5.0 % (0-4) H 07/11/17 17:42 Metamyelocytes % 2.0 % (0) H 07/11/17 17:42 Myelocytes % 1.0 % (0) H 07/11/17 17:42 Promyelocytes % 1.0 % (0) H 07/11/17 17:42 Nucleated RBCs/100 WBC 0.7 /100 WBC (0) H 07/15/17 04:15 Platelet Estimate Increased (Normal) H 07/11/17 17:42 Polychromasia 2+ (Not Present) A 07/11/17 17:42 Hypochromasia Present (Not Present) A 07/11/17 17:42 Anisocytosis 2+ (Not Present) A 07/11/17 17:42 D-Dimer 1936 ng/mLFEU (0-500) H 07/11/17 17:42 Chloride 111 mEq/L (98-107) H 07/14/17 02:59 Carbon Dioxide 22 mEq/L (23-29) L 07/14/17 02:59 Creatinine 0.66 mg/dL (0.70-1.30) L 07/14/17 02:59 Glucose 297 mg/dL (70-105) H 07/14/17 02:59 Hemoglobin A1c 8.9 % (-5.6) H 07/12/17 01:54 Calcium 7.1 mg/dL (8.6-10.3) L 07/14/17 02:59 Stool Occult Blood Positive (Negative) A 07/14/17 09:40 - Attending Attestation I examined this patient and my medical decision-making was reviewed with the Resident Physician. I agree with the documented findings, disposition and treatment plan as described except to the extent set forth below. - Labs CBC & Chem 7: 07/15/17 04:15 07/14/17 02:59 Labs: Laboratory Results - last 24 hr 07/15/17 07/15/17 07/15/17 06:59 10:34 16:48 POC Glucose 228 H 267 H 178 H 07/15/17 07/16/17 19:55 06:57 POC Glucose 181 H 71 - ABG Interpretation ABG results: PT/INR, D-dimer D-Dimer 1936 ng/mLFEU (0-500) H 07/11/17 17:42
--- NOTE | 2017-07-15 08:55 | Internal Med Progress Note ---
<LondonoHumberto - Last Filed: 07/15/17 15:12> Date of Encounter: 07/15/17 - Constitutional Vitals: Temp Pulse Resp BP Pulse Ox 97.5 F L 57 15 119/67 96 07/15/17 14:49 07/15/17 14:49 07/15/17 14:49 07/15/17 14:49 07/15/17 14:49 Internal Medicine: Result - Labs CBC & Chem 7: 07/15/17 04:15 07/14/17 02:59 Labs: Short CBC 07/15/17 Range/Units 04:15 WBC 5.7 (4.3-11.1) K/mcL Hgb 8.2 L (12.9-16.9) g/dL Hct 26.4 L (37.5-50.1) % Plt Count 355 (140-400) K/mcL Neutrophils # 4.0 (1.6-8.9) K/mcL - ABG Interpretation ABG results: PT/INR, D-dimer D-Dimer 1936 ng/mLFEU (0-500) H 07/11/17 17:42 Consult Discharge Plan - Plan Referrals: Jt Cárdenas, DO [Primary Care Provider] - - Attending Attestation I performed an independent interview and exam. I agree with the findings, assessment, and plan of Dr. Gill, internal medicine internal combustion engine subassembler. Patient has received 3 units of packed red blood cells total for GI bleed. He remained stable. Pt not interested in any invasive procedures. We will de-escalate antibiotics to Levaquin for his pneumonia to complete a seven-day course. [facility] is currently evaluating potential hospice care. All else as outlined above. <Gerry Gill - Last Filed: 07/15/17 16:02> Date of Encounter: 07/15/17 Time of Encounter: 08:53 - Assessment and plan (1) GI bleed Current Visit: Yes Status: Acute Assessment and plan: -Symptomatic anemia 2/2 suspected G.I. bleed. -Patient has been seen by general surgery; has opted out of receiving any invasive procedures at this time. -s/p transfusion of 3U pRBCs Qualifiers: GI bleed type/associated pathology: melena Qualified Code(s): K92.1 - Melena (2) Pneumonia Current Visit: Yes Status: Acute Assessment and plan: -CTA performed on 07/11/17 demonstrated the following: Area of consolidation in the ESTRELLA suspicious for PNA -Zosyn 3.375 g IV every 8 hours (started on 07/12; day 4) -Vancomycin 1250 mg IV every 12 hours (started on 07/12; day 4) - DuoNeb 3 mL inhaled every 4 when necessary Qualifiers: Pneumonia type: due to unspecified organism Laterality: left Lung location: upper lobe of lung Qualified Code(s): J18.1 - Lobar pneumonia, unspecified organism (3) Small cell lung cancer Current Visit: Yes Status: Acute Assessment and plan: -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 -Patient does have a living well. -Current CODE STATUS is DNR CCA -Oxycodone for pain control (4) Abscess of skin Current Visit: Yes Status: Acute Assessment and plan: -Multiple tiny abscesses/comedones on body -Will use warm compresses and routine wound care -Zosyn 3.375 g IV every 8 hours (started on 07/12; day 4) -Vancomycin 1250 mg IV every 12 hours (started on 07/12; day 4) Qualifiers: Site of cutaneous abscess: other site Qualified Code(s): L02.818 - Cutaneous abscess of other sites (5) Skin ulcer Current Visit: Yes Status: Acute Assessment and plan: -Multiple ulcerated areas on front and back side -Continue routine wound care Qualifiers: Non-pressure ulcer stage: limited to breakdown of skin Qualified Code(s): L98.491 - Non-pressure chronic ulcer of skin of other sites limited to breakdown of skin (6) Acute metabolic encephalopathy Current Visit: Yes Status: Resolved Assessment and plan: -Resolved -Was likely multifactorial, given blood loss, hyperglycemia, and extensive cancer history with metastasis -Will continue supportive care and treat underlying causes (7) Hyperglycemia Current Visit: Yes Status: Acute Assessment and plan: Continue accuchecks and SSI QID AC/HS Continue levemir added yesterday Continue diabetic diet (8) DVT prophylaxis Current Visit: Yes Status: Acute Assessment and plan: -Continue SCDs -Hold off on anticoagulation due to suspected GI bleed - Subjective Interval history: 61-year-old male. Past medical history of small cell lung cancer with brain metastasis. Presented to emergency department for generalized weakness for 1 day. Has weakness at baseline; presenting weakness was significantly worse. He felt dizzy, lightheaded, and nauseous. He also had a nonproductive cough. Upon arrival, he was found to have a low hemoglobin at 5.6. CTA ruled out a pulmonary embolism. Did demonstrate pneumonia. He was admitted for healthcare associated pneumonia and was started on vancomycin and Zosyn. Concern for GI bleed. General surgery was consulted. Patient opted out of any invasive procedures. He received 3 units of packed red blood cells. Palliative care was consulted. CODE STATUS is DNR CCA. He is considering hospice. Patient was seen and examined at bedside this morning. Reports that he is feeling better today. He states that he is still experiencing some mild weakness, but that he feels slightly less weak than when he first came into the hospital. Denies fever, chills, cough, shortness of breath, abdominal pain, lightheadedness, or dizziness. Patient has no further complaints at this time. - Constitutional Vitals: Temp Pulse Resp BP Pulse Ox 97.4 F L 60 16 112/60 95 07/15/17 06:52 07/15/17 06:52 07/15/17 06:52 07/15/17 06:52 07/15/17 06:52 General appearance: Present: cooperative, A&O X 3, pleasant, no acute distress, answers questions appropriately - Head Head exam: Present: atraumatic, normocephalic - Eye Eye exam: Present: PERRL, conjuntiva pink, sclera anicteric Pupils: Present: PERRL - Neck Neck exam general surgery: Present: supple, trachea midline. Absent: lymphadenopathy - Respiratory Respiratory exam: Present: decreased breath sounds. Absent: accessory muscle use, rales, rhonchi, wheezes - Cardiovascular Cardiovascular exam: Present: RRR, +S1, +S2. Absent: diastolic murmur, gallop, rubs, systolic murmur - GI/Abdominal GI/Abdominal exam: Present: normal bowel sounds, soft, no peritoneal signs. Absent: distended, tenderness - Extremities Exam Extremities exam: Present: warm, radial pulses palpable and symmetrical. Absent : calf tenderness, cyanotic, pedal edema - Neurological Exam Neurological exam: Present: CN II-XII intact, oriented X3, no focal deficits. Absent: pronater drift, facial droop, speech deficit - Skin Skin exam: Present: dry, intact Internal Medicine: Result - Labs CBC & Chem 7: 07/15/17 04:15 07/14/17 02:59 Labs: Short CBC 07/15/17 Range/Units 04:15 WBC 5.7 (4.3-11.1) K/mcL Hgb 8.2 L (12.9-16.9) g/dL Hct 26.4 L (37.5-50.1) % Plt Count 355 (140-400) K/mcL Neutrophils # 4.0 (1.6-8.9) K/mcL - ABG Interpretation ABG results: PT/INR, D-dimer D-Dimer 1936 ng/mLFEU (0-500) H 07/11/17 17:42 - VTE Reasons for not Prescribing Prophylaxis: Medical contraindication (Suspected GI bleed with anemia) Documentation of Mechanical Device: Intermittent pneumatic compression device
[2017-07-15] MEDS: levoFLOXacin 750 MG TABLET PO SCH (16:38)
[2017-07-15] MEDS: Mirtazapine 15 MG TABLET PO SCH (20:19)
--- NOTE | 2017-07-15 23:00 | Electrocardiograph Report ---
[place] [id number] Test Date: 2017-07-11 Pat Name: Shaheed Quintero Department: 104 Room: 2NE19 Gender: M Estate Conservator: KRYSTAL : 1955 Requested By: Lavell Headley Order Number: [id number] Reading MD: Abimael Donahue DO Measurements Intervals [place] Rate: 102 P: 89 AK: 159 QRS: 65 QRSD: 86 T: 68 QT: 313 QTc: 372 Interpretive Statements SINUS TACHYCARDIA WITH VENTRICULAR PREMATURE COMPLEXES NONSPECIFIC ST & T-WAVE ABNORMALITY Electronically Signed On 07-15-2017 22:58:36 EDT by Abimael Donahue DO
[2017-07-16] MEDS: Ipratropium/Albuterol Neb 3 ML IH SCH ×4 (04:02→22:32)
[2017-07-16] MEDS: Hydrocortisone Sodium Succ 100 MG/2 ML VIAL IVP SCH ×2 (05:54→17:55)
--- NOTE | 2017-07-16 08:31 | Internal Med Progress Note ---
<Humberto Londono Darío - Last Filed: 07/16/17 12:28> Date of Encounter: 07/16/17 - Constitutional Vitals: Temp Pulse Resp BP Pulse Ox 97.8 F 68 16 128/73 93 07/16/17 10:47 07/16/17 10:47 07/16/17 11:02 07/16/17 10:47 07/16/17 11:02 Internal Medicine: Result - Labs CBC & Chem 7: 07/15/17 04:15 07/14/17 02:59 - ABG Interpretation ABG results: PT/INR, D-dimer D-Dimer 1936 ng/mLFEU (0-500) H 07/11/17 17:42 Consult Discharge Plan - Plan Referrals: Jt Cárdenas DO [Primary Care Provider] - - Attending Attestation I performed an independent interview and exam of this patient. I agree with the findings, assessment, and plan of Dr. Gill, internal medicine internet media planner. Patient is doing well. His anemia remained stable. He has required a total of 3 units of packed blood cells. No further bleeding noted. Patient does not want any procedures at this time. He continues on Levaquin for pneumonia. Patient also is still undecided on whether he wants hospice or not. He does have metastatic small cell lung cancer. His prognosis is poor. All else as outlined above. We are awaiting disposition. <Gerry Gill - Last Filed: 07/16/17 15:37> Date of Encounter: 07/16/17 Time of Encounter: 08:29 - Assessment and plan (1) GI bleed Current Visit: Yes Status: Acute Assessment and plan: -Symptomatic anemia 2/2 suspected G.I. bleed. -Patient has been seen by general surgery; has opted out of receiving any invasive procedures at this time. -s/p transfusion of 3U pRBCs Qualifiers: GI bleed type/associated pathology: melena Qualified Code(s): K92.1 - Melena (2) Pneumonia Current Visit: Yes Status: Acute Assessment and plan: -CTA performed on 07/11/17 demonstrated the following: Area of consolidation in the ESTRELLA suspicious for PNA -Levaquin 750 mg by mouth daily -DuoNeb 3 mL inhaled every 4 when necessary Qualifiers: Pneumonia type: due to unspecified organism Laterality: left Lung location: upper lobe of lung Qualified Code(s): J18.1 - Lobar pneumonia, unspecified organism (3) Small cell lung cancer Current Visit: Yes Status: Acute Assessment and plan: -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 -Patient does have a living well. -Current CODE STATUS is DNR CCA -Oxycodone for pain control (4) Abscess of skin Current Visit: Yes Status: Acute Assessment and plan: -Multiple tiny abscesses/comedones on body -Will use warm compresses and routine wound care Qualifiers: Site of cutaneous abscess: other site Qualified Code(s): L02.818 - Cutaneous abscess of other sites (5) Skin ulcer Current Visit: Yes Status: Acute Assessment and plan: -Multiple ulcerated areas on front and back side -Continue routine wound care Qualifiers: Non-pressure ulcer stage: limited to breakdown of skin Qualified Code(s): L98.491 - Non-pressure chronic ulcer of skin of other sites limited to breakdown of skin (6) Acute metabolic encephalopathy Current Visit: Yes Status: Resolved Assessment and plan: -Resolved -Was likely multifactorial, given blood loss, hyperglycemia, and extensive cancer history with metastasis -Will continue supportive care and treat underlying causes (7) Hyperglycemia Current Visit: Yes Status: Acute Assessment and plan: Continue accuchecks and SSI QID AC/HS Continue levemir added yesterday Continue diabetic diet (8) DVT prophylaxis Current Visit: Yes Status: Acute Assessment and plan: -Continue SCDs -Hold off on anticoagulation due to suspected GI bleed - Subjective Interval history: Patient was seen and examined at bedside this morning. Reports that he is feeling better today. He states that he is still experiencing some mild weakness, but that he feels slightly less weak than when he first came into the hospital. Denies fever, chills, cough, shortness of breath, abdominal pain, lightheadedness, or dizziness. Patient has no further complaints at this time. - Constitutional Vitals: Temp Pulse Resp BP Pulse Ox 97.6 F 71 16 121/77 95 07/16/17 06:51 07/16/17 06:51 07/16/17 06:51 07/16/17 06:51 07/16/17 06:51 General appearance: Present: cooperative, A&O X 3, pleasant, no acute distress, answers questions appropriately - Head Head exam: Present: atraumatic, normocephalic - Eye Eye exam: Present: PERRL, conjuntiva pink, sclera anicteric Pupils: Present: PERRL - Neck Neck exam general surgery: Present: supple, trachea midline. Absent: lymphadenopathy - Respiratory Respiratory exam: Present: CTAB. Absent: accessory muscle use, rales, rhonchi, wheezes - Cardiovascular Cardiovascular exam: Present: RRR, +S1, +S2. Absent: diastolic murmur, gallop, rubs, systolic murmur - GI/Abdominal GI/Abdominal exam: Present: normal bowel sounds, soft, no peritoneal signs. Absent: distended, tenderness - Extremities Exam Extremities exam: Present: warm, radial pulses palpable and symmetrical. Absent : calf tenderness, cyanotic, pedal edema - Neurological Exam Neurological exam: Present: CN II-XII intact, oriented X3, no focal deficits. Absent: pronater drift, facial droop, speech deficit - Skin Skin exam: Present: dry, intact Internal Medicine: Result - Labs CBC & Chem 7: 07/15/17 04:15 07/14/17 02:59 - ABG Interpretation ABG results: PT/INR, D-dimer D-Dimer 1936 ng/mLFEU (0-500) H 07/11/17 17:42 - VTE Reasons for not Prescribing Prophylaxis: Medical contraindication (Suspected GI bleed with anemia) Documentation of Mechanical Device: Graduated compression elastic hosiery
[2017-07-16] MEDS: levoFLOXacin 750 MG TABLET PO SCH (08:59)
[2017-07-16] MEDS: Cyanocobalamin (B-12) 1,000 MCG TABLET PO SCH (08:59)
[2017-07-16] MEDS: Insulin LISPRO 300 UNITS/3 ML VIAL SQ SCH ×4 (09:00→20:54)
[2017-07-16] MEDS: (Umeclidinium Bromide [Incruse Ellipta] 1 PUFF) IH SCH (09:01)
[2017-07-16] MEDS: Insulin DETEMIR 100 UNIT/ML X5UNITS SQ SCH ×2 (09:01→20:53)
[2017-07-16] MEDS: Mirtazapine 15 MG TABLET PO SCH (20:53)
[2017-07-17] MEDS: Ipratropium/Albuterol Neb 3 ML IH SCH ×4 (03:51→21:20)
[2017-07-17] MEDS: Hydrocortisone Sodium Succ 100 MG/2 ML VIAL IVP SCH (04:14)
--- NOTE | 2017-07-17 08:08 | Internal Med Progress Note ---
<Gerry Gill - Last Filed: 07/17/17 13:53> Date of Encounter: 07/17/17 Time of Encounter: 08:05 - Assessment and plan (1) GI bleed Current Visit: Yes Status: Acute Assessment and plan: -Symptomatic anemia 2/2 suspected G.I. bleed. -Patient has been seen by general surgery; has opted out of receiving any invasive procedures at this time. -s/p transfusion of 3U pRBCs Qualifiers: GI bleed type/associated pathology: melena Qualified Code(s): K92.1 - Melena (2) Pneumonia Current Visit: Yes Status: Acute Assessment and plan: -CTA performed on 07/11/17 demonstrated the following: Area of consolidation in the ESTRELLA suspicious for PNA -DuoNeb 3 mL inhaled every 4 when necessary -d/c levaquin; has completed 7 day antibiotic course Qualifiers: Pneumonia type: due to unspecified organism Laterality: left Lung location: upper lobe of lung Qualified Code(s): J18.1 - Lobar pneumonia, unspecified organism (3) Small cell lung cancer Current Visit: Yes Status: Acute Assessment and plan: -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 -Patient does have a living well. -Current CODE STATUS is DNR CCA -Oxycodone for pain control (4) Abscess of skin Current Visit: Yes Status: Acute Assessment and plan: -Multiple tiny abscesses/comedones on body -Will use warm compresses and routine wound care Qualifiers: Site of cutaneous abscess: other site Qualified Code(s): L02.818 - Cutaneous abscess of other sites (5) Skin ulcer Current Visit: Yes Status: Acute Assessment and plan: -Multiple ulcerated areas on front and back side -Continue routine wound care Qualifiers: Non-pressure ulcer stage: limited to breakdown of skin Qualified Code(s): L98.491 - Non-pressure chronic ulcer of skin of other sites limited to breakdown of skin (6) Acute metabolic encephalopathy Current Visit: Yes Status: Resolved Assessment and plan: -Resolved -Was likely multifactorial, given blood loss, hyperglycemia, and extensive cancer history with metastasis -Will continue supportive care and treat underlying causes (7) Hyperglycemia Current Visit: Yes Status: Acute Assessment and plan: Continue accuchecks and SSI QID AC/HS Continue levemir added yesterday Continue diabetic diet (8) DVT prophylaxis Current Visit: Yes Status: Acute Assessment and plan: -Continue SCDs -Hold off on anticoagulation due to suspected GI bleed - Subjective Interval history: Patient was seen and examined at bedside this morning. Reports that he is feeling better today. Denies fever, chills, cough, shortness of breath, abdominal pain, lightheadedness, or dizziness. Patient has no further complaints at this time. - Constitutional Vitals: Temp Pulse Resp BP Pulse Ox 97.9 F 73 15 122/64 91 07/17/17 06:43 07/17/17 06:43 07/17/17 06:43 07/17/17 06:43 07/17/17 06:43 General appearance: Present: cooperative, A&O X 3, pleasant, no acute distress, answers questions appropriately - Head Head exam: Present: atraumatic, normocephalic - Eye Eye exam: Present: PERRL, conjuntiva pink, sclera anicteric Pupils: Present: PERRL - Neck Neck exam general surgery: Present: supple, trachea midline. Absent: lymphadenopathy - Respiratory Respiratory exam: Present: CTAB. Absent: accessory muscle use, rales, rhonchi, wheezes - Cardiovascular Cardiovascular exam: Present: RRR, +S1, +S2. Absent: diastolic murmur, gallop, rubs, systolic murmur - GI/Abdominal GI/Abdominal exam: Present: normal bowel sounds, soft, no peritoneal signs. Absent: distended, tenderness - Extremities Exam Extremities exam: Present: warm, radial pulses palpable and symmetrical. Absent : calf tenderness, cyanotic, pedal edema - Neurological Exam Neurological exam: Present: CN II-XII intact, oriented X3, no focal deficits. Absent: pronater drift, facial droop, speech deficit - Skin Skin exam: Present: dry, intact Internal Medicine: Result - Labs CBC & Chem 7: 07/15/17 04:15 07/14/17 02:59 - ABG Interpretation ABG results: PT/INR, D-dimer D-Dimer 1936 ng/mLFEU (0-500) H 07/11/17 17:42 - VTE Reasons for not Prescribing Prophylaxis: Medical contraindication (Suspected GI bleed with anemia) Documentation of Mechanical Device: Graduated compression elastic hosiery Consult Discharge Plan - Plan Instructions: Chest Pain (DC), Gastrointestinal Bleeding (DC), Gastrointestinal Bleeding (GEN), Lung Cancer (DC), Lung Cancer (GEN), Anemia ( GEN), Pneumonia (DC) Referrals: Jt Cárdenas DO [Primary Care Provider] - <LondonoHumberto - Last Filed: 07/17/17 14:47> Date of Encounter: 07/17/17 - Constitutional Vitals: Temp Pulse Resp BP Pulse Ox 97.9 F 73 16 122/64 96 07/17/17 06:43 07/17/17 06:43 07/17/17 10:15 07/17/17 10:15 07/17/17 10:15 Internal Medicine: Result - Labs CBC & Chem 7: 07/17/17 14:05 07/14/17 02:59 Labs: Short CBC 07/17/17 Range/Units 14:05 Hgb 11.0 L D (12.9-16.9) g/dL Hct 34.9 L (37.5-50.1) % - ABG Interpretation ABG results: PT/INR, D-dimer D-Dimer 1936 ng/mLFEU (0-500) H 07/11/17 17:42 - Attending Attestation I performed an independent interview and examine this patient. I agree with the findings, assessment, and plan of Dr. Gill, internal medicine manager of internal audit. Should she will remain stable. He is considered treated for his pneumonia. He is still not wanting hospice as of yet. Palliative care has been following. Patient otherwise is hemodynamically stable. We are waiting placement.
[2017-07-17] MEDS: *HR* OxyCODONE/APAP 5/325 TABLET PO PRN (08:28)
[2017-07-17] MEDS: Cyanocobalamin (B-12) 1,000 MCG TABLET PO SCH (08:29)
[2017-07-17] MEDS: levoFLOXacin 750 MG TABLET PO SCH (08:29)
[2017-07-17] MEDS: Insulin DETEMIR 100 UNIT/ML X5UNITS SQ SCH ×2 (08:29→22:14)
[2017-07-17] MEDS: (Umeclidinium Bromide [Incruse Ellipta] 1 PUFF) IH SCH (08:30)
[2017-07-17] MEDS: Insulin LISPRO 300 UNITS/3 ML VIAL SQ SCH ×4 (08:30→22:13)
[2017-07-17 14:20] LABS: Hematocrit 34.9 % (37.5-50.1)
[2017-07-17] MEDS: Mirtazapine 15 MG TABLET PO SCH (22:11)
[2017-07-17] MEDS: *HR* OxyCODONE Immed Rel 5 MG TABLET PO PRN (22:12)
[2017-07-18] MEDS: Ipratropium/Albuterol Neb 3 ML IH SCH ×4 (04:23→22:48)
[2017-07-18] MEDS: *HR* OxyCODONE/APAP 5/325 TABLET PO PRN (04:50)
[2017-07-18 05:34] LABS: Basophils % 0.1 %; Eosinophils # 0.1 K/mcL (0.0-0.6); Eosinophils % 0.9 %; Hematocrit 31.5 % (37.5-50.1); Hemoglobin 9.8 g/dL (12.9-16.9); Immature Granulocytes % 0.9 % (0-4); Lymphocytes # 1.1 K/mcL (0.6-4.6); Lymphocytes % 14.3 %; Mean Corpuscular HGB Conc 31.1 g/dL (31.6-35.5); Mean Corpuscular Volume 96.3 fL (83.0-100.0); Mean Platelet Volume 9.9 fL (9.4-12.4); Monocytes # 0.2 K/mcL (0.0-1.3); Monocytes % 2.7 %; Nucleated Red Blood Cells 0.5 /100 WBC (0); Platelet Count 289 K/mcL (140-400); Red Blood Count 3.27 M/mcL (4.19-5.50); Segmented Neutrophils % 81.1 %
[2017-07-18 05:45] LABS: BUN/Creatinine Ratio 14 (6-26); Blood Urea Nitrogen 10 mg/dL (8-23); Calcium 7.2 mg/dL (8.6-10.3); Carbon Dioxide 29 mEq/L (23-29); Chloride 103 mEq/L (98-107); Glucose 252 mg/dL (70-105); Osmolality,Calculated 294 (280-300); Sodium 138 mEq/L (136-145); eGFR For African Americans > 60 (> 60); eGFR For Non-African Americans > 60 (> 60)
--- NOTE | 2017-07-18 07:19 | Palliative Progress Note ---
Date of Encounter: 07/18/17 Time of Encounter: 07:00 - Assessment and plan (1) Small cell lung cancer Current Visit: Yes Status: Acute Assessment and plan: On the basis of small cell cancer with metastases, the patient is certainly eligible for hospice. At this point in time he does not wish to pursue any further aggressive care for his also lung cancer, however he is also extremely indecisive with regards to hospice. I believe that he was hoping that hospice would be able to provide him with a place to stay, and when he was told that they would not enthusiasm opt rapidly. As he needs to be on board with hospice I did explain to him again today that he is eligible but he will have to want it. Feel at this point we are just badgering the patient with regards to hospice have told him that if he changes his mind and absolutely does not want it asked for us to return to the case to help him out with it. As his eligibility has already been determined that would be required for him to have hospice would be to social work referral notify hospice. At this point palliative care is going to sign off as we have nothing further to offer this particular patient. Reconsult as needed. (2) Pneumonia Current Visit: Yes Status: Acute Assessment and plan: Has completed antibiotic course. Her hospitalist team Qualifiers: Pneumonia type: due to unspecified organism Laterality: left Lung location: upper lobe of lung Qualified Code(s): J18.1 - Lobar pneumonia, unspecified organism (3) GI bleed Current Visit: Yes Status: Acute Assessment and plan: H&H have been stable. Patient is only received 3 units of blood although did have a repeat heme concentrated lab draw yesterday. Days lab draws more in line with where the rest of them have been suspect lab error. Is no evidence of any transfusion in the medical record. Qualifiers: GI bleed type/associated pathology: melena Qualified Code(s): K92.1 - Melena (4) Goals of care, counseling/discussion Current Visit: Yes Status: Acute Assessment and plan: Patient's CODE STATUS is DNR CCA, as already noted above the patient is certainly eligible for hospice based on his small cell lung cancer with metastases to the brain. I believe that he was hoping that hospice would be able to provide him with a place to stay, and when he was told that they would not enthusiasm opt rapidly. As he needs to be on board with hospice I did explain to him again today that he is eligible but he will have to want it. Feel at this point we are just badgering the patient with regards to hospice have told him that if he changes his mind and absolutely does not want it asked for us to return to the case to help him out with it. As his eligibility has already been determined that would be required for him to have hospice would be to social work referral notify hospice. At this point palliative care is going to sign off as we have nothing further to offer this particular patient. Reconsult as needed. - Time Spent With Patient Total time spent is greater than 50% in coordination of care (as documented) at patient's floor/unit and/or counseling patient: - Subjective Interval history: No complaints of this morning, the patient does have some pain however he feels it is well controlled and well within his ability to tolerate. As has been the case for the last several days the patient is still indecisive with regards to hospice. Please see the assessment and plan has no other complaints of at this time - Constitutional Vitals: Abnormal lab results RBC 3.27 M/mcL (4.19-5.50) L 07/18/17 04:14 Hgb 9.8 g/dL (12.9-16.9) L 07/18/17 04:14 Hct 31.5 % (37.5-50.1) L 07/18/17 04:14 MCHC 31.1 g/dL (31.6-35.5) L 07/18/17 04:14 RDW 19.0 % (11.5-14.5) H 07/18/17 04:14 Band Neutrophils % 5.0 % (0-4) H 07/11/17 17:42 Metamyelocytes % 2.0 % (0) H 07/11/17 17:42 Myelocytes % 1.0 % (0) H 07/11/17 17:42 Promyelocytes % 1.0 % (0) H 07/11/17 17:42 Nucleated RBCs/100 WBC 0.5 /100 WBC (0) H 07/18/17 04:14 Platelet Estimate Increased (Normal) H 07/11/17 17:42 Polychromasia 2+ (Not Present) A 07/11/17 17:42 Hypochromasia Present (Not Present) A 07/11/17 17:42 Anisocytosis 2+ (Not Present) A 07/11/17 17:42 D-Dimer 1936 ng/mLFEU (0-500) H 07/11/17 17:42 Potassium 3.0 mEq/L (3.5-5.1) L 07/18/17 04:14 Creatinine 0.69 mg/dL (0.70-1.30) L 07/18/17 04:14 Glucose 252 mg/dL (70-105) H 07/18/17 04:14 POC Glucose 108 (58-89) H 07/17/17 15:43 Hemoglobin A1c 8.9 % (-5.6) H 07/12/17 01:54 Calcium 7.2 mg/dL (8.6-10.3) L 07/18/17 04:14 Stool Occult Blood Positive (Negative) A 07/14/17 09:40 General appearance: Present: cooperative, no acute distress - Head Head exam: Present: atraumatic, normal inspection - Eye Eye exam: Present: normal appearance - ENT ENT exam: Present: mucous membranes moist - Neck Neck exam: Present: normal inspection - Respiratory Respiratory exam: Present: CTAB - Cardiovascular Cardiovascular exam: Present: RRR - GI/Abdominal GI/Abdominal exam: Present: normal bowel sounds, soft. Absent: tenderness - Extremities Exam Extremities exam: Present: normal inspection. Absent: pedal edema, tenderness - Neurological Exam Neurological exam: Present: alert, oriented X3 - Psychiatric Psychiatric exam: Absent: agitated, anxious - Skin Skin exam: Present: dry, warm Palliative Quality Palliative Quality: Screen for Code Status: Yes, Screen for Goals of Care: Yes, Screen for Pain: Yes, If Pain Regimen Started, Initiate Bowel Regimen: Yes, Screen for Nausea/Vomitting: Yes - Labs CBC & Chem 7: 07/18/17 04:14 07/18/17 04:14 Labs: Laboratory Results - last 24 hr 07/17/17 07/17/17 07/17/17 06:46 07:26 11:21 WBC RBC Hgb Hct MCV MCH MCHC RDW Plt Count MPV Immature Gran % Seg Neutrophils % Lymphocytes % Monocytes % Eosinophils % Basophils % Neutrophils # Lymphocytes # Monocytes # Eosinophils # Basophils # Nucleated RBCs/100 WBC Sodium Potassium Chloride Carbon Dioxide BUN Creatinine Est GFR ( Amer) Est GFR (Non-Af Amer) BUN/Creatinine Ratio Glucose POC Glucose 58 75 147 H Calculated Osmolality Calcium 07/17/17 07/17/17 07/18/17 14:05 15:43 04:14 WBC 7.4 RBC 3.27 L Hgb 11.0 L D 9.8 L Hct 34.9 L 31.5 L MCV 96.3 MCH 30.0 MCHC 31.1 L RDW 19.0 H Plt Count 289 MPV 9.9 Immature Gran % 0.9 Seg Neutrophils % 81.1 Lymphocytes % 14.3 Monocytes % 2.7 Eosinophils % 0.9 Basophils % 0.1 Neutrophils # 6.0 Lymphocytes # 1.1 Monocytes # 0.2 Eosinophils # 0.1 Basophils # 0.0 Nucleated RBCs/100 WBC 0.5 H Sodium Potassium Chloride Carbon Dioxide BUN Creatinine Est GFR ( Amer) Est GFR (Non-Af Amer) BUN/Creatinine Ratio Glucose POC Glucose 108 H Calculated Osmolality Calcium 07/18/17 04:14 WBC RBC Hgb Hct MCV MCH MCHC RDW Plt Count MPV Immature Gran % Seg Neutrophils % Lymphocytes % Monocytes % Eosinophils % Basophils % Neutrophils # Lymphocytes # Monocytes # Eosinophils # Basophils # Nucleated RBCs/100 WBC Sodium 138 Potassium 3.0 L Chloride 103 Carbon Dioxide 29 BUN 10 Creatinine 0.69 L Est GFR ( Amer) > 60 Est GFR (Non-Af Amer) > 60 BUN/Creatinine Ratio 14 Glucose 252 H POC Glucose Calculated Osmolality 294 Calcium 7.2 L - ABG Interpretation ABG results: PT/INR, D-dimer D-Dimer 1936 ng/mLFEU (0-500) H 07/11/17 17:42 Consult Discharge Plan - Plan Instructions: Chest Pain (DC), Gastrointestinal Bleeding (DC), Gastrointestinal Bleeding (GEN), Lung Cancer (DC), Lung Cancer (GEN), Anemia ( GEN), Pneumonia (DC) Referrals: Jt Cárdenas DO [Primary Care Provider] -
[2017-07-18] MEDS: Cyanocobalamin (B-12) 1,000 MCG TABLET PO SCH (07:57)
[2017-07-18] MEDS: Insulin LISPRO 300 UNITS/3 ML VIAL SQ SCH ×4 (07:58→23:19)
[2017-07-18] MEDS: Hydrocortisone Sodium Succ 100 MG/2 ML VIAL IVP SCH (07:58)
--- NOTE | 2017-07-18 08:50 | Internal Med Progress Note ---
<Gerry Gill - Last Filed: 07/18/17 11:53> Date of Encounter: 07/18/17 Time of Encounter: 08:49 - Assessment and plan (1) Abscess of skin Current Visit: Yes Status: Acute Assessment and plan: This morning, he patient developed a fever at 100.1. -No elevated white count. -Sizable abscess located near the groin area. -Vancomycin has been started. -Blood cultures have been obtained. -Surgery will be consulted for possible incision and drainage. -Multiple tiny abscesses/comedones on body -Will use warm compresses and routine wound care Qualifiers: Site of cutaneous abscess: other site Qualified Code(s): L02.818 - Cutaneous abscess of other sites (2) GI bleed Current Visit: Yes Status: Acute Assessment and plan: Resolved -Initially had symptomatic anemia 2/2 suspected G.I. bleed. -Patient has been seen by general surgery; has opted out of receiving any invasive procedures at this time. 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 -Patient does have a living well. -Current CODE STATUS is DNR CCA -Oxycodone for pain control (5) Skin ulcer Current Visit: Yes Status: Acute Assessment and plan: -Multiple ulcerated areas on front and back side -Continue routine wound care Qualifiers: Non-pressure ulcer stage: limited to breakdown of skin Qualified Code(s): L98.491 - Non-pressure chronic ulcer of skin of other sites limited to breakdown of skin (6) Acute metabolic encephalopathy Current Visit: Yes Status: Resolved Assessment and plan: -Resolved -Was likely multifactorial, given blood loss, hyperglycemia, and extensive cancer history with metastasis -Will continue supportive care and treat underlying causes (7) Hyperglycemia Current Visit: Yes Status: Acute Assessment and plan: Continue accuchecks and SSI QID AC/HS Continue levemir added yesterday Continue diabetic diet (8) DVT prophylaxis Current Visit: Yes Status: Acute Assessment and plan: -Continue SCDs -Hold off on anticoagulation due to suspected GI bleed - Subjective Interval history: Patient was seen and examined at bedside this morning. Reports that he is feeling better today. Denies fever, chills, cough, shortness of breath, abdominal pain, lightheadedness, or dizziness. Patient has no further complaints at this time. - Constitutional Vitals: Temp Pulse Resp BP Pulse Ox 99.4 F 97 16 105/61 92 07/18/17 06:58 07/18/17 06:58 07/18/17 06:58 07/18/17 06:58 07/18/17 06:58 General appearance: Present: cooperative, A&O X 3, pleasant, no acute distress, answers questions appropriately - Head Head exam: Present: atraumatic, normocephalic - Eye Eye exam: Present: PERRL, conjuntiva pink, sclera anicteric Pupils: Present: PERRL - Neck Neck exam general surgery: Present: supple, trachea midline. Absent: lymphadenopathy - Respiratory Respiratory exam: Present: CTAB. Absent: accessory muscle use, rales, rhonchi, wheezes - Cardiovascular Cardiovascular exam: Present: RRR, +S1, +S2. Absent: diastolic murmur, gallop, rubs, systolic murmur - GI/Abdominal GI/Abdominal exam: Present: normal bowel sounds, soft, no peritoneal signs. Absent: distended, tenderness - Extremities Exam Extremities exam: Present: warm, radial pulses palpable and symmetrical. Absent : calf tenderness, cyanotic, pedal edema - Neurological Exam Neurological exam: Present: CN II-XII intact, oriented X3, no focal deficits. Absent: pronater drift, facial droop, speech deficit - Skin Skin exam: Present: dry, intact Internal Medicine: Result - Labs CBC & Chem 7: 07/18/17 04:14 07/18/17 04:14 Labs: Short CBC 07/17/17 07/18/17 Range/Units 14:05 04:14 WBC 7.4 (4.3-11.1) K/mcL Hgb 11.0 L D 9.8 L (12.9-16.9) g/dL Hct 34.9 L 31.5 L (37.5-50.1) % Plt Count 289 (140-400) K/mcL Neutrophils # 6.0 (1.6-8.9) K/mcL BMP 07/18/17 04:14 Sodium 138 Potassium 3.0 L Chloride 103 Carbon Dioxide 29 BUN 10 Creatinine 0.69 L Glucose 252 H Calcium 7.2 L - ABG Interpretation ABG results: PT/INR, D-dimer D-Dimer 1936 ng/mLFEU (0-500) H 07/11/17 17:42 - VTE Reasons for not Prescribing Prophylaxis: Medical contraindication (Suspected GI bleed with anemia) Documentation of Mechanical Device: Intermittent pneumatic compression device Consult Discharge Plan - Plan Instructions: Chest Pain (DC), Gastrointestinal Bleeding (DC), Gastrointestinal Bleeding (GEN), Lung Cancer (DC), Lung Cancer (GEN), Anemia ( GEN), Pneumonia (DC) Referrals: Jt Cárdenas DO [Primary Care Provider] - <Humberto Londono - Last Filed: 07/18/17 13:11> Date of Encounter: 07/18/17 - Constitutional Vitals: Temp Pulse Resp BP Pulse Ox 97.5 F L 86 16 107/72 95 07/18/17 11:07 07/18/17 11:07 07/18/17 11:07 07/18/17 11:07 07/18/17 11:07 Internal Medicine: Result - Labs CBC & Chem 7: 07/18/17 04:14 07/18/17 04:14 Labs: Short CBC 07/17/17 07/18/17 Range/Units 14:05 04:14 WBC 7.4 (4.3-11.1) K/mcL Hgb 11.0 L D 9.8 L (12.9-16.9) g/dL Hct 34.9 L 31.5 L (37.5-50.1) % Plt Count 289 (140-400) K/mcL Neutrophils # 6.0 (1.6-8.9) K/mcL BMP 07/18/17 04:14 Sodium 138 Potassium 3.0 L Chloride 103 Carbon Dioxide 29 BUN 10 Creatinine 0.69 L Glucose 252 H Calcium 7.2 L - ABG Interpretation ABG results: PT/INR, D-dimer D-Dimer 1936 ng/mLFEU (0-500) H 07/11/17 17:42 - Attending Attestation I performed an independent interview and examine this patient. I agree with the findings, assessment, and plan of Dr. Gill, internal medicine hospital intern. She developed a fever this morning for which blood cultures have been obtained. There is concern for infected abscess. He was given 1 dose of IV vancomycin. We will await general surgery evaluation for possible I&D, particularly of the one on his abdomen. All else as per note, which is reflective of our discussion and my input. Agree with warm compresses.
[2017-07-18] MEDS ORDERED: Potassium Chloride Elixir 20 MEQ/15 ML UDC PO ONE (10:30)
[2017-07-18] MEDS: Insulin DETEMIR 100 UNIT/ML X5UNITS SQ SCH ×2 (10:34→23:19)
[2017-07-18] MEDS: *HR* OxyCODONE Immed Rel 5 MG TABLET PO PRN (20:24)
[2017-07-18] MEDS: Mirtazapine 15 MG TABLET PO SCH (20:24)
[2017-07-19] MEDS: Ipratropium/Albuterol Neb 3 ML IH SCH ×4 (03:37→21:51)
[2017-07-19] MEDS: Insulin LISPRO 300 UNITS/3 ML VIAL SQ SCH ×4 (08:02→20:40)
[2017-07-19] MEDS: Cyanocobalamin (B-12) 1,000 MCG TABLET PO SCH (08:09)
[2017-07-19] MEDS: Hydrocortisone Sodium Succ 100 MG/2 ML VIAL IVP SCH (08:09)
[2017-07-19] MEDS: Insulin DETEMIR 100 UNIT/ML X5UNITS SQ SCH (08:28)
[2017-07-19] MEDS ORDERED: Aminoglycoside Consult 1 EACH MC ONE (09:16)
--- NOTE | 2017-07-19 09:27 | Internal Med Progress Note ---
Date of Encounter: 07/19/17 Time of Encounter: 09:00 - Assessment and plan (1) Abscess of skin Current Visit: Yes Status: Acute Assessment and plan: Remains afebrile 48 hours -No elevated white count. -Vancomycin has been started on 07/17. All cx negative. Will change to po doxycycline 100 mg po bid. Day #1 Doxy. -Will use warm compresses and routine wound care Qualifiers: Site of cutaneous abscess: other site Qualified Code(s): L02.818 - Cutaneous abscess of other sites (2) GI bleed Current Visit: Yes Status: Acute Assessment and plan: Resolved. Hemoglobin stable. Patient opted for no endoscopic evaluation of this. Continues on Prilosec 20 mg by mouth twice a day Qualifiers: GI bleed type/associated pathology: melena Qualified Code(s): K92.1 - Melena (3) Pneumonia Current Visit: Yes Status: Acute Assessment and plan: Completed antibiotics. Resolved. I will stop his hydrocortisone but consider restarting if he has any blood pressure is used. Qualifiers: Pneumonia type: due to unspecified organism Laterality: left Lung location: upper lobe of lung Qualified Code(s): J18.1 - Lobar pneumonia, unspecified organism (4) Small cell lung cancer Current Visit: Yes Status: Acute (5) Acute metabolic encephalopathy Current Visit: Yes Status: Resolved Assessment and plan: Resolved. (6) Diabetes Current Visit: Yes Status: Acute Assessment and plan: Continue basal bolus insulin. Blood sugars are labile. I will not adjust insulin today. Qualifiers: Diabetes mellitus type: type 2 Diabetes mellitus intermodal customer service insulin use: unspecified intermodal customer service insulin use status Diabetes mellitus complication status : without complication Qualified Code(s): E11.9 - Type 2 diabetes mellitus without complications (7) Hypokalemia Current Visit: Yes Status: Acute Assessment and plan: Replacement ordered, monitor - Time Spent With Patient 25 - 35 minutes - Subjective Interval history: Patient is without any complaints today. He is eating breakfast. Awaiting placement. - Constitutional Vitals: Temp Pulse Resp BP Pulse Ox 98.4 F 87 16 129/81 93 07/19/17 07:09 07/19/17 07:09 07/19/17 07:09 07/19/17 07:09 07/19/17 08:17 General appearance: Present: cooperative, A&O X 3, pleasant, no acute distress, answers questions appropriately - Head Head exam: Present: atraumatic, normocephalic - Eye Eye exam: Present: PERRL, conjuntiva pink, sclera anicteric Pupils: Present: PERRL - Neck Neck exam general surgery: Present: supple, trachea midline. Absent: lymphadenopathy - Respiratory Respiratory exam: Present: decreased breath sounds. Absent: accessory muscle use, rales, rhonchi, wheezes - Cardiovascular Cardiovascular exam: Present: RRR, +S1, +S2. Absent: diastolic murmur, gallop, rubs, systolic murmur - GI/Abdominal GI/Abdominal exam: Present: normal bowel sounds, soft, no peritoneal signs. Absent: distended, tenderness - Extremities Exam Extremities exam: Present: warm, radial pulses palpable and symmetrical. Absent : calf tenderness, cyanotic, pedal edema - Skin Additional comments: Multiple superficial skin abscesses. Soft. No Drainage noted. Appear improved from the last 2 days. Internal Medicine: Result - Labs CBC & Chem 7: 07/18/17 04:14 07/18/17 04:14 - ABG Interpretation ABG results: PT/INR, D-dimer D-Dimer 1936 ng/mLFEU (0-500) H 07/11/17 17:42 - VTE Reasons for not Prescribing Prophylaxis: Medical contraindication (Suspected GI bleed with anemia) Documentation of Mechanical Device: Intermittent pneumatic compression device Consult Discharge Plan - Plan Instructions: Chest Pain (DC), Gastrointestinal Bleeding (DC), Gastrointestinal Bleeding (GEN), Lung Cancer (DC), Lung Cancer (GEN), Anemia ( GEN), Pneumonia (DC) Referrals: Jt Cárdenas DO [Primary Care Provider] -
[2017-07-19] MEDS: Doxycycline 100 MG CAPSULE PO SCH ×2 (09:59→20:23)
--- NOTE | 2017-07-19 10:34 | General Surgery Consult Note ---
Date of Encounter: 07/19/17 Time of Encounter: 10:10 History of Present Illness Consult date: 07/19/17 Requesting physician: Santino William History of present illness: Called to see 61-year-old male for further evaluation and treatment of an apparent suprapubic abscess. The patient had been seen earlier during this hospitalization, 07/12/17. The patient has a known history of lung cancer metastatic to the brain. During this hospitalization the patient's coordination is deteriorated and he is no longer able to use his left arm. Physical examination revealed a new 2.5 cm erythematous, well-circumscribed subcutaneous nodule right of midline in the suprapubic region. The skin was prepped with Betadine, and attempted aspiration with an 18-gauge needle was completed. No pus was aspirated. Following the attempted aspiration, compression of this cystic lesion yielded a caseous material consistent with a epidermal inclusion cyst. This caseous material was cultured with the cultures sent to microbiology. A dry sterile dressing was applied. The patient tolerated the aspiration reasonably well. Impression: Epidermal inclusion cyst (sebaceous cyst), right suprapubic region. Lung cancer metastatic to brain with evidence of progressive neural involvement causing loss of function left arm. Recommendations: Apply heat with caution against thermal injury May cleanse the area with soap and water and apply dry sterile dressing daily If the cyst enlarges or becomes more symptomatic a simple incision at bedside can be performed. As this lesion is not an abscess, antibiotics are not needed Past Med Surg Social Fam HX - Past Medical History Medical history: cancer, GERD, hyperlipidemia, other Psychiatric history: anxiety, depression - Past Surgical History Surgical History: appendectomy, orthopedic, other - Social History Smoking Status: Current every day smoker Packs per day: 1 Smokeless Tobacco Status: No Alcohol use: none Drug use: none - Family History Mother History Unknown: Yes Medications and Allergies Atorvastatin [Lipitor] 40 mg PO HS 05/09/16 [History] Cyanocobalamin (Vitamin B-12) [Vitamin B-12] 1,000 mcg SL DAILY 05/09/16 [ History] Quetiapine Fumarate [Seroquel] 400 mg PO HS 05/09/16 [History] clonazePAM [Klonopin] 1 mg PO TID PRN 05/09/16 [History] Acetaminophen [Non-Aspirin] 650 mg PO Q6H PRN 05/08/17 [History] Bisacodyl [Dulcolax] 5 mg PO BID 05/08/17 [History] Bisacodyl [Dulcolax] 10 mg RC DAILY PRN 05/08/17 [History] BuPROPion [Wellbutrin] 75 mg PO DAILY 05/08/17 [History] Escitalopram [Lexapro] 20 mg PO DAILY 05/08/17 [History] Famotidine [Heartburn Prevention] 20 mg PO BID 05/08/17 [History] Mirtazapine [Remeron] 30 mg PO HS 05/08/17 [History] Umeclidinium [place] [Incruse Ellipta] 1 puff IH DAILY 07/12/17 [History] 3 Allergy/AdvReac Type Severity Reaction Status Date / Time sertraline [From Zoloft] AdvReac Diarrhea Verified 07/12/17 09:27 Review of Systems All systems PM: The remainder of the systems were reviewed and are negative General Surgery Exam Initial Vital Signs Temp Pulse Resp BP Pulse Ox 97.4 F L 101 20 122/62 100 07/11/17 17:09 07/11/17 17:09 07/11/17 17:09 07/11/17 17:09 07/11/17 17:09 Exam Initial Vital Signs Temp Pulse Resp BP Pulse Ox 97.4 F L 101 20 122/62 100 07/11/17 17:09 07/11/17 17:09 07/11/17 17:09 07/11/17 17:09 07/11/17 17:09 Results - Labs 07/18/17 04:14 07/18/17 04:14 Abnormal lab results RBC 3.27 M/mcL (4.19-5.50) L 07/18/17 04:14 Hgb 9.8 g/dL (12.9-16.9) L 07/18/17 04:14 Hct 31.5 % (37.5-50.1) L 07/18/17 04:14 MCHC 31.1 g/dL (31.6-35.5) L 07/18/17 04:14 RDW 19.0 % (11.5-14.5) H 07/18/17 04:14 Band Neutrophils % 5.0 % (0-4) H 07/11/17 17:42 Metamyelocytes % 2.0 % (0) H 07/11/17 17:42 Myelocytes % 1.0 % (0) H 07/11/17 17:42 Promyelocytes % 1.0 % (0) H 07/11/17 17:42 Nucleated RBCs/100 WBC 0.5 /100 WBC (0) H 07/18/17 04:14 Platelet Estimate Increased (Normal) H 07/11/17 17:42 Polychromasia 2+ (Not Present) A 07/11/17 17:42 Hypochromasia Present (Not Present) A 07/11/17 17:42 Anisocytosis 2+ (Not Present) A 07/11/17 17:42 D-Dimer 1936 ng/mLFEU (0-500) H 07/11/17 17:42 Potassium 3.0 mEq/L (3.5-5.1) L 07/18/17 04:14 Creatinine 0.69 mg/dL (0.70-1.30) L 07/18/17 04:14 Glucose 252 mg/dL (70-105) H 07/18/17 04:14 POC Glucose 303 (58-89) H 07/18/17 16:00 Hemoglobin A1c 8.9 % (-5.6) H 07/12/17 01:54 Calcium 7.2 mg/dL (8.6-10.3) L 07/18/17 04:14 Stool Occult Blood Positive (Negative) A 07/14/17 09:40 All other labs normal. Consult Discharge Plan - Plan Instructions: Chest Pain (DC), Gastrointestinal Bleeding (DC), Gastrointestinal Bleeding (GEN), Lung Cancer (DC), Lung Cancer (GEN), Anemia ( GEN), Pneumonia (DC) Referrals: Jt Cárdenas DO [Primary Care Provider] -
[2017-07-19] MEDS: Mirtazapine 15 MG TABLET PO SCH (20:23)
[2017-07-20] MEDS: Insulin DETEMIR 100 UNIT/ML X5UNITS SQ SCH ×3 (00:05→20:21)
[2017-07-20] MEDS: Ipratropium/Albuterol Neb 3 ML IH SCH ×4 (04:19→22:06)
[2017-07-20] MEDS: Cyanocobalamin (B-12) 1,000 MCG TABLET PO SCH (09:25)
[2017-07-20] MEDS: Doxycycline 100 MG CAPSULE PO SCH (09:25)
[2017-07-20] MEDS: Insulin LISPRO 300 UNITS/3 ML VIAL SQ SCH ×4 (09:25→20:21)
[2017-07-20] MEDS: Nystatin POWDER 30 GM BOTTLE TP SCH ×2 (09:26→20:21)
--- NOTE | 2017-07-20 10:19 | Internal Med Progress Note ---
Date of Encounter: 07/20/17 Time of Encounter: 08:30 - Assessment and plan (1) Abscess of skin Current Visit: Yes Status: Acute Assessment and plan: Remains afebrile 48 hours -No elevated white count. -Vancomycin has been started on 07/17. All cx negative. Will change to po doxycycline 100 mg po bid. Day #1 Doxy. -Will use warm compresses and routine wound care 07/20: Doxycycline stop. No evidence of infection. Monitor. Qualifiers: Site of cutaneous abscess: other site Qualified Code(s): L02.818 - Cutaneous abscess of other sites (2) GI bleed Current Visit: Yes Status: Acute Assessment and plan: Resolved. Hemoglobin stable. Patient opted for no endoscopic evaluation of this. Continues on Prilosec 20 mg by mouth twice a day Qualifiers: GI bleed type/associated pathology: melena Qualified Code(s): K92.1 - Melena (3) Pneumonia Current Visit: Yes Status: Acute Assessment and plan: Completed antibiotics. Resolved. I will stop his hydrocortisone but consider restarting if he has any blood pressure is used. Qualifiers: Pneumonia type: due to unspecified organism Laterality: left Lung location: upper lobe of lung Qualified Code(s): J18.1 - Lobar pneumonia, unspecified organism (4) Small cell lung cancer Current Visit: Yes Status: Acute (5) Acute metabolic encephalopathy Current Visit: Yes Status: Resolved Assessment and plan: Resolved. (6) Diabetes Current Visit: Yes Status: Acute Assessment and plan: Continue basal bolus insulin. Blood sugars are labile. I will not adjust insulin today. 07/20: Reasonable control, monitor. Qualifiers: Diabetes mellitus type: type 2 Diabetes mellitus snf insulin use: unspecified snf insulin use status Diabetes mellitus complication status : without complication Qualified Code(s): E11.9 - Type 2 diabetes mellitus without complications (7) Hypokalemia Current Visit: Yes Status: Acute Assessment and plan: Replacement ordered, monitor - Time Spent With Patient 25 - 35 minutes - Subjective Interval history: Patient is without any complaints today. He is eating breakfast. Awaiting placement. 07/20: General surgery input noted and appreciated. Antibiotics stopped as no evidence of infection. This is suspected to be a suprapubic epidermal inclusion cyst. Patient is without any complaints. Still awaiting placement. - Constitutional Vitals: Temp Pulse Resp BP Pulse Ox 98.2 F 84 18 130/80 94 07/20/17 07:13 07/20/17 07:13 07/20/17 07:13 07/20/17 07:13 07/20/17 07:13 General appearance: Present: cooperative, A&O X 3, pleasant, no acute distress, answers questions appropriately - Head Head exam: Present: atraumatic, normocephalic - Eye Eye exam: Present: PERRL, conjuntiva pink, sclera anicteric Pupils: Present: PERRL - Neck Neck exam general surgery: Present: supple, trachea midline. Absent: lymphadenopathy - Respiratory Respiratory exam: Present: decreased breath sounds - Cardiovascular Cardiovascular exam: Present: RRR, +S1, +S2. Absent: diastolic murmur, gallop, rubs, systolic murmur - GI/Abdominal GI/Abdominal exam: Present: normal bowel sounds, soft, no peritoneal signs. Absent: distended, tenderness Additional comments: Suprapubic cyst has a scant amount of blood drainage, no fluctuance. - Extremities Exam Extremities exam: Present: warm, radial pulses palpable and symmetrical. Absent : calf tenderness, cyanotic, pedal edema - Neurological Exam Neurological exam: Present: CN II-XII intact, oriented X3, no focal deficits. Absent: pronater drift, facial droop, speech deficit Additional comments: Slow mentation - Skin Skin exam: Present: dry, intact Internal Medicine: Result - Labs CBC & Chem 7: 07/18/17 04:14 07/18/17 04:14 - ABG Interpretation ABG results: PT/INR, D-dimer D-Dimer 1936 ng/mLFEU (0-500) H 07/11/17 17:42 - VTE Reasons for not Prescribing Prophylaxis: Medical contraindication (Suspected GI bleed with anemia) Documentation of Mechanical Device: Intermittent pneumatic compression device Consult Discharge Plan - Plan Instructions: Chest Pain (DC), Gastrointestinal Bleeding (DC), Gastrointestinal Bleeding (GEN), Lung Cancer (DC), Lung Cancer (GEN), Anemia ( GEN), Pneumonia (DC) Referrals: Jt Cárdenas, [Primary Care Provider] -
[2017-07-20] MEDS: Mirtazapine 15 MG TABLET PO SCH (20:10)
[2017-07-21] MEDS: Ipratropium/Albuterol Neb 3 ML IH SCH ×4 (03:54→21:55)
[2017-07-21 04:11] LABS: BUN/Creatinine Ratio 16 (6-26); Blood Urea Nitrogen 12 mg/dL (8-23); eGFR For African Americans > 60 (> 60); eGFR For Non-African Americans > 60 (> 60)
--- NOTE | 2017-07-21 09:03 | Internal Med Progress Note ---
Addendum entered and electronically signed by Gerry Gill DO 07/21/17 14:51: On 07/21/17, patient developed new onset right-sided weakness. He also complained of a headache. CT scan of the head was obtained and it demonstrated the following: Increasing size of the hyperdense lesion in the previous resection cavity, now measuring 5 x 5 x 3.1 cm. These findings are compatible with a component of recurrent tumor superimposed on hemorrhage within the cavity. Progression of vasogenic edema in the left cerebral hemisphere with extension into the frontal lobe and extension into the corpus callosum. Worsening mass effect with 3 mm of midline shift. Slight interval dilation of the temporal horns of the lateral ventricles without additional signs of acute hydrocephalus. It was recommended that this patient obtain neurosurgical evaluation, which would require transfer to a different facility. These findings were explained to patient; both condition and need for transfer were explained. After consideration, patient declined to be transferred to an outside facility. Potential risks and complications were discussed with patient , patient understands. It is my assessment that patient has capacitance to understand this decision. Decadron has been started. Original Note: <Gerry Gill - Last Filed: 07/21/17 13:16> Date of Encounter: 07/21/17 Time of Encounter: 09:01 - Assessment and plan (1) Abscess of skin Current Visit: Yes Status: Acute Assessment and plan: -Patient was initially given vancomycin and doxycycline -Antibiotics of been discontinued -No evidence of infection at this time -Continue to monitor -Warm compresses and routine wound care -Wound care has been consulted -Doxycycline 100 mg by mouth twice a day for 10 days Qualifiers: Site of cutaneous abscess: other site Qualified Code(s): L02.818 - Cutaneous abscess of other sites (2) GI bleed Current Visit: Yes Status: Acute Assessment and plan: -Resolved; Hemoglobin stable -Patient opted for no endoscopic evaluation of this -Continues on Prilosec 20 mg by mouth twice a day Qualifiers: GI bleed type/associated pathology: melena Qualified Code(s): K92.1 - Melena (3) Pneumonia Current Visit: Yes Status: Acute Assessment and plan: -Completed antibiotics -Resolved Qualifiers: Pneumonia type: due to unspecified organism Laterality: left Lung location: upper lobe of lung Qualified Code(s): J18.1 - Lobar pneumonia, unspecified organism (4) Small cell lung cancer Current Visit: Yes Status: Acute Assessment and plan: -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 -Patient does have a living well. -Current CODE STATUS is DNR CCA -Oxycodone for pain control (5) Skin ulcer Current Visit: Yes Status: Acute Assessment and plan: -Multiple ulcerated areas on front and back side -Continue routine wound care Qualifiers: Non-pressure ulcer stage: limited to breakdown of skin Qualified Code(s): L98.491 - Non-pressure chronic ulcer of skin of other sites limited to breakdown of skin (6) Acute metabolic encephalopathy Current Visit: Yes Status: Resolved Assessment and plan: -Resolved -Was likely multifactorial, given blood loss, hyperglycemia, and extensive cancer history with metastasis -Will continue supportive care and treat underlying causes (7) Hyperglycemia Current Visit: Yes Status: Acute Assessment and plan: Continue accuchecks and SSI QID AC/HS Continue levemir added yesterday Continue diabetic diet (8) DVT prophylaxis Current Visit: Yes Status: Acute Assessment and plan: -Continue SCDs -Hold off on anticoagulation due to suspected GI bleed - Subjective Interval history: Patient was seen and examined at bedside this morning. Reports that he is feeling well today. Denies fever, chills, cough, shortness of breath, abdominal pain, lightheadedness, or dizziness. Patient has no further complaints at this time. - Constitutional Vitals: Temp Pulse Resp BP Pulse Ox 98.0 F 91 15 100/64 99 07/21/17 07:20 07/21/17 07:20 07/21/17 07:20 07/21/17 07:20 07/21/17 07:20 General appearance: Present: cooperative, A&O X 3, pleasant, no acute distress, answers questions appropriately - Head Head exam: Present: atraumatic, normocephalic - Eye Eye exam: Present: PERRL, conjuntiva pink, sclera anicteric Pupils: Present: PERRL - Neck Neck exam general surgery: Present: supple, trachea midline. Absent: lymphadenopathy - Respiratory Respiratory exam: Present: CTAB. Absent: accessory muscle use, rales, rhonchi, wheezes - Cardiovascular Cardiovascular exam: Present: RRR, +S1, +S2. Absent: diastolic murmur, gallop, rubs, systolic murmur - Extremities Exam Extremities exam: Present: warm, radial pulses palpable and symmetrical. Absent : calf tenderness, cyanotic, pedal edema - Skin Skin exam: Present: dry, intact Internal Medicine: Result - Labs CBC & Chem 7: 07/21/17 11:43 07/21/17 11:43 Labs: BMP 07/21/17 03:45 BUN 12 Creatinine 0.74 - ABG Interpretation ABG results: PT/INR, D-dimer D-Dimer 1936 ng/mLFEU (0-500) H 07/11/17 17:42 - VTE Reasons for not Prescribing Prophylaxis: Medical contraindication (Suspected GI bleed with anemia) Documentation of Mechanical Device: Intermittent pneumatic compression device Consult Discharge Plan - Plan Instructions: Chest Pain (DC), Gastrointestinal Bleeding (DC), Gastrointestinal Bleeding (GEN), Lung Cancer (DC), Lung Cancer (GEN), Anemia ( GEN), Pneumonia (DC) Referrals: Jt Cárdenas DO [Primary Care Provider] - <Humberto Londono - Last Filed: 07/21/17 15:30> Date of Encounter: 07/21/17 - Assessment and plan (1) Abscess of skin Current Visit: Yes Status: Acute Qualifiers: Site of cutaneous abscess: other site Qualified Code(s): L02.818 - Cutaneous abscess of other sites (2) GI bleed Current Visit: Yes Status: Acute Qualifiers: GI bleed type/associated pathology: melena Qualified Code(s): K92.1 - Melena (3) Pneumonia Current Visit: Yes Status: Acute Qualifiers: Pneumonia type: due to unspecified organism Laterality: left Lung location: upper lobe of lung Qualified Code(s): J18.1 - Lobar pneumonia, unspecified organism (4) Small cell lung cancer Current Visit: Yes Status: Acute (5) Acute metabolic encephalopathy Current Visit: Yes Status: Resolved (6) Diabetes Current Visit: Yes Status: Acute Qualifiers: 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 mellitus 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 alf insulin use status Diabetes mellitus complication status : without complication Qualified Code(s): E11.9 - Type 2 diabetes mellitus without complications (7) Hypokalemia Current Visit: Yes Status: Acute - Constitutional Vitals: Temp Pulse Resp BP Pulse Ox 98.0 F 91 15 100/64 99 07/21/17 07:20 07/21/17 07:20 07/21/17 09:29 07/21/17 07:20 07/21/17 09:29 Internal Medicine: Result - Labs CBC & Chem 7: 07/21/17 11:43 07/21/17 11:43 Labs: BMP 07/21/17 03:45 BUN 12 Creatinine 0.74 - ABG Interpretation ABG results: PT/INR, D-dimer D-Dimer 1936 ng/mLFEU (0-500) H 07/11/17 17:42 - Attending Attestation I performed an independent interview and examine this patient. I agree with the findings, assessment, and plan of Dr. Gill, internal medicine project intern. Patient remains hemodynamically stable. His pneumonia has resolved after antibiotic treatment. He has no evidence of ongoing GI bleeding. Patient did not want any endoscopic evaluation. Patient had an I&D of his skin lesion above his suprapubic area, culture growing out MRSA. Will treat with doxycycline for a 10 day course. His wound continues to drain yellowish fluid. Patient remains hemodynamically stable. Afebrile. Pain E colonization but due to ongoing drainage and he has multiple of these lesions would prefer to treat for MRSA infection/colonization. Patient otherwise is stable. We are awaiting placement which is a challenge. Patient has known metastatic cancer, receiving supportive care. All else as per the above note. Transfer once arrangements are made. 1500: CT head results noted. Unsure chronicity of this, versus subacute. Patient was started on Decadron. We did consult oncology. Patient does not want to be transferred for neurosurgical evaluation. Patient in my opinion has a capacity to make his own decisions and understand outcomes of them. Await oncology recommendations.
[2017-07-21] MEDS: Cyanocobalamin (B-12) 1,000 MCG TABLET PO SCH (10:02)
[2017-07-21] MEDS: *HR* OxyCODONE Immed Rel 5 MG TABLET PO PRN (10:13)
[2017-07-21] MEDS: Insulin LISPRO 300 UNITS/3 ML VIAL SQ SCH ×4 (11:34→20:12)
[2017-07-21] MEDS: Insulin DETEMIR 100 UNIT/ML X5UNITS SQ SCH ×2 (11:55→20:12)
[2017-07-21] MEDS: Nystatin POWDER 30 GM BOTTLE TP SCH ×2 (11:56→20:11)
[2017-07-21 12:03] LABS: Basophils % 0.3 %; Eosinophils # 0.1 K/mcL (0.0-0.6); Eosinophils % 1.7 %; Hematocrit 35.8 % (37.5-50.1); Hemoglobin 10.9 g/dL (12.9-16.9); Immature Granulocytes % 1.4 % (0-4); Lymphocytes # 1.4 K/mcL (0.6-4.6); Lymphocytes % 20.7 %; Mean Corpuscular HGB Conc 30.4 g/dL (31.6-35.5); Mean Corpuscular Hemoglobin 29.4 pg (28.0-33.3); Mean Corpuscular Volume 96.5 fL (83.0-100.0); Mean Platelet Volume 9.3 fL (9.4-12.4); Monocytes # 0.4 K/mcL (0.0-1.3); Monocytes % 5.4 %; Neutrophils # 4.7 K/mcL (1.6-8.9); Platelet Count 306 K/mcL (140-400); Red Blood Count 3.71 M/mcL (4.19-5.50); Red Cell Distribution Width 17.6 % (11.5-14.5); Segmented Neutrophils % 70.5 %
[2017-07-21 12:27] LABS: BUN/Creatinine Ratio 18 (6-26); Blood Urea Nitrogen 11 mg/dL (8-23); Calcium 7.7 mg/dL (8.6-10.3); Carbon Dioxide 29 mEq/L (23-29); Chloride 101 mEq/L (98-107); Glucose 153 mg/dL (70-105); Osmolality,Calculated 284 (280-300); Sodium 136 mEq/L (136-145); eGFR For African Americans > 60 (> 60); eGFR For Non-African Americans > 60 (> 60)
[2017-07-21] MEDS ORDERED: Dexamethasone 4 MG/ML VIAL IVP ONE (13:35)
--- NOTE | 2017-07-21 17:05 | Oncology Inp Consult Note ---
<Danay Pedro L - Last Filed: 07/22/17 09:22> Date of Encounter: 07/21/17 Time of Encounter: 16:58 Assessment and Plan (1) Small cell lung cancer Status: Acute Assessment and plan: Metastatic small cell lung cancer, stage IV. S/P left parieto-occipital craniotomy and brain mass excision with aspiration of left parieto-occipital cyst on 03/13/2017. Following consultation in April, he had declined radiation therapy and declined chemotherapy, elected to pursue Hospice. As detailed in HPI, CT head now shows increasing lesion in the previous resection cavity consistent recurrent tumor superimposed on hemorrhage, progressive vasogenic edema and worsening mass effect with 3 mm midline shift. He has had acute onset of associated neurological symptoms with left temporal H/ A, slurred speech, left sided hemiparesis. Discussed CT results with patient at bedside. He does not wish for transfer to a tertiary care center for neurosurgical evaluation. Agree with starting high dose steroids, he has been started on decadron 6 mg IV Q6H. He will need continued blood sugar monitoring and control. Discussed treatment options, he continues to decline radiotherapy/chemotherapy, states he wishes to "just let things take their course." He understands that steroids may help with symptoms for sometime, but without treatment he will ultimately succumb to cancer. Discussed that if he does not wish to pursue aggressive treatment options, hospice would be appropriate course for symptomatic treatment and support. Will discuss case further with palliative team tomorrow. Please refer to Dr. Shirley's attestation below for further details. - Data of Consult Patient: known to practice within the last 3 years Consult date: 07/21/17 Requesting Physician: Santino William Primary Care Provider: Jt Cárdenas, - Consult Narrative Reason for consult: metastatic small cell lung cancer, stage IV History of present illness: Mr. Quintero is a 61 year old male with oncologic history significant for metastatic small cell lung cancer, stage IV. He initially presented with confusion, difficulty walking with recurrent falls, ataxia and right sided weakness to [facility]. Head CT revealed large fronto-paretal mass with cerebral edema , he was then transferred to [facility] for neurosurgery consultation. He underwent left parieto-occipital craniotomy and brain mass excision with aspiration of left parieto-occipital cyst on 03/13/2017. He had consultation with Dr. Painting, radiation oncologist in April 2017. Following further discussion at consultation, patient declined radiotherapy or chemotherapy and hospice philosophy was discussed, he was referred to director of social work and Hospice. He met with director of social work and referral was made for Hospice services, patient was making arrangements with friends/family for living situation. It is unclear what had transpired from this point, but since this time patient continued to reside at [facility], which is a senior living house for those released from retirement. He presented to ER on 07/11/2017 for GI bleed, hgb 5.8. He has been medically managed and declined EGD. Today, he developed acute on chronic worsening right sided weakness and headache. CT head shows "Increasing size of the hyperdense lesion in the previous resection cavity, now measuring 5 x 5 x 3.1 cm. Findings are compatible with a component of recurrent tumor superimposed on the hemorrhage within the cavity. 2. Progression of vasogenic edema in the left cerebral hemisphere with extension into the frontal lobe and extension into the corpus callosum 3. Worsening mass effect with 3 mm of midline shift. 4. Slight interval dilation of the temporal horns of the lateral ventricles without additional signs of acute hydrocephalus." Primary team has already discussed CT findings with patient and recommended transfer to tertiary care center where neurosurgical consultation can be obtained, however, patient has declined. He has been started on decadron. Palliative care has been consulted previously regarding patients case, signed off earlier today as patient is undecided on Hospice. Past Med Surg Social Fam HX - Past Medical History Medical history: cancer, GERD, hyperlipidemia, other Psychiatric history: anxiety, depression - Past Surgical History Surgical History: appendectomy, orthopedic, other - Social History Smoking Status: Current every day smoker Packs per day: 1 Smokeless Tobacco Status: No Alcohol use: none Drug use: none - Family History Mother History Unknown: Yes Medications and Allergies Atorvastatin [Lipitor] 40 mg PO HS 05/09/16 [History] Cyanocobalamin (Vitamin B-12) [Vitamin B-12] 1,000 mcg SL DAILY 05/09/16 [ History] Quetiapine Fumarate [Seroquel] 400 mg PO HS 05/09/16 [History] clonazePAM [Klonopin] 1 mg PO TID PRN 05/09/16 [History] Acetaminophen [Non-Aspirin] 650 mg PO Q6H PRN 05/08/17 [History] Bisacodyl [Dulcolax] 5 mg PO BID 05/08/17 [History] Bisacodyl [Dulcolax] 10 mg RC DAILY PRN 05/08/17 [History] BuPROPion [Wellbutrin] 75 mg PO DAILY 05/08/17 [History] Escitalopram [Lexapro] 20 mg PO DAILY 05/08/17 [History] Famotidine [Heartburn Prevention] 20 mg PO BID 05/08/17 [History] Mirtazapine [Remeron] 30 mg PO HS 05/08/17 [History] Umeclidinium [place] [Incruse Ellipta] 1 puff IH DAILY 07/12/17 [History] 3 Allergy/AdvReac Type Severity Reaction Status Date / Time sertraline [From Zoloft] AdvReac Diarrhea Verified 07/12/17 09:27 Review of systems: difficult to obtain due, patient is a poor historian, info gained mainly from chart review Constitutional: Present: as per HPI, frequent falls, weakness. Absent: chills, fever(s) Eyes: Present: as per HPI, blurry vision Cardiovascular: Absent: chest pain Respiratory: Present: as per HPI. Absent: dyspnea Gastrointestinal: Present: as per HPI. Absent: dysphagia, nausea, vomiting Genitourinary: urinary incontinence Musculoskeletal: Present: as per HPI, abnormal gait Integumentary: Present: as per HPI, wounds Additional comments: Per wound care assessment: stage II wound coccyx, multiple abscesses, tunneling wound left groin Neurological: Present: as per HPI Psychiatric: Present: as per HPI Hematologic/Lymphatic: Present: as per HPI Oncology - Exam - Constitutional Vitals: Temp Pulse Resp BP Pulse Ox 99.3 F 95 15 103/60 93 07/21/17 16:00 07/21/17 16:00 07/21/17 16:00 07/21/17 16:00 07/21/17 16:00 General appearance: cooperative, no acute distress, no febrile - Eye Eye exam: Present: PERRL - ENT ENT exam: Present: mucous membranes moist - Respiratory Respiratory exam: Present: CTAB. Absent: respiratory distress - Cardiovascular Cardiovascular exam: Present: RRR, +S1, +S2 - GI/Abdominal GI/Abdominal exam: Present: normal bowel sounds, soft. Absent: tenderness - Extremities Exam Extremities exam: Present: pedal edema Additional comments: 1+ pitting edema BLE Manual muscle strength testing: RUE:1/5, LUE 3/5, RLE 2/5, LLE 3/5 - Neurological Exam Neurological exam: Present: alert, oriented X3, speech deficit. Absent: facial droop Additional comments: slow mentation, see extremity exam for muscle strength testing - Psychiatric Psychiatric exam: Present: depressed, flat affect - Skin Skin exam: Present: dry, normal color, warm Additional comments: Per wound care report- coccyx wound, left groin wound +MRSA, multiple abscesses Oncology - Results Labs: Short CBC 07/21/17 Range/Units 11:43 WBC 6.6 (4.3-11.1) K/mcL Hgb 10.9 L (12.9-16.9) g/dL Hct 35.8 L (37.5-50.1) % Plt Count 306 (140-400) K/mcL Neutrophils # 4.7 (1.6-8.9) K/mcL BMP 07/21/17 07/21/17 03:45 11:43 Sodium 136 Potassium 4.0 Chloride 101 Carbon Dioxide 29 BUN 12 11 Creatinine 0.74 0.60 L Glucose 153 H Calcium 7.7 L Consult Discharge Plan - Plan Instructions: Chest Pain (DC), Gastrointestinal Bleeding (DC), Gastrointestinal Bleeding (GEN), Lung Cancer (DC), Lung Cancer (GEN), Anemia ( GEN), Pneumonia (DC) Referrals: Jt Cárdenas DO [Primary Care Provider] - <CasperTaty martinez S - Last Filed: 07/22/17 13:10> Date of Encounter: 07/22/17 - Data of Consult Requesting Physician: Santino William Primary Care Provider: Jt Cárdenas DO - Consult Narrative History of present illness: Mr. Quintero is a 61 year old male Oncology - Exam - Constitutional Vitals: Temp Pulse Resp BP Pulse Ox 97.5 F L 79 16 111/64 96 07/22/17 07:11 07/22/17 07:11 07/22/17 10:38 07/22/17 07:11 07/22/17 10:38 Oncology - Results Labs: Short CBC 07/22/17 Range/Units 07:00 WBC 5.5 (4.3-11.1) K/mcL Hgb 9.4 L D (12.9-16.9) g/dL Hct 30.5 L (37.5-50.1) % Plt Count 282 (140-400) K/mcL Neutrophils # 3.9 (1.6-8.9) K/mcL [facility] 07/22/17 07:00 Sodium 140 Potassium 4.0 Chloride 106 Carbon Dioxide 30 H BUN 15 Creatinine 0.54 L Glucose 163 H Calcium 7.8 L - Attending Attestation 1. Metastatic small cell lung cancer, stage IV. He presented with right-sided weakness February 2017. Scans at that time showed fairly large about 5 x 6 mass in the left parieto-occipital region. He was transferred to [facility] and had surgical excision which conformed metastatic high-grade neuroendocrine carcinoma He has only limited systemic disease CT angiogram chest 07/11/2017 showed 8mm lung nodule with small amount of mediastinal/left hilar adenopathy area and also about to 1 cm lesions in the dome of liver He was evaluated by Dr. Painting and patient refused whole brain radiation During this admission he presents with progressive weakness right upper extremity and lower extremity. His muscle strength 1 x 5 right upper extremity and 2 x 5 left lower extremity CAT scan this admission 07/11/2017 showed enlarging mass in the cavitary lesion about 5 x 5 cm with significant surrounding edema at the surgical resection site . About 3 mm midline shift Currently he is on Decadron 4 mg IV every 6 hours and will continue that No evidence of seizures. 2. Type 2 diabetes mellitus. On long and short-acting insulin. Blood glucose runs around 150-200. I had a long discussion with him. Neutropenia is radiation. Explained to him that his systemic disease burden is low. Had but his main problem is his brain metastasis which is recurrent. There is not much benefit to treating systemic disease without addressing the brain metastasis If he does not want any radiation hospice Would be more appropriate. Overall prognosis poor. Hopefully the steroids work may see improvement in his left-sided weakness. But that could be short-lived without definitive treatment. I do not think he would be a candidate for further neurosurgical intervention
[2017-07-21] MEDS: Doxycycline 100 MG CAPSULE PO SCH (20:02)
[2017-07-21] MEDS: Mirtazapine 15 MG TABLET PO SCH (20:02)
[2017-07-21] MEDS: Dexamethasone 4 MG/ML VIAL IVP SCH (20:03)
[2017-07-22] MEDS: Dexamethasone 4 MG/ML VIAL IVP SCH ×4 (02:59→20:15)
[2017-07-22] MEDS: Ipratropium/Albuterol Neb 3 ML IH SCH ×4 (03:45→21:54)
--- NOTE | 2017-07-22 07:29 | Internal Med Progress Note ---
<Gerry Gill - Last Filed: 07/22/17 07:57> Date of Encounter: 07/22/17 Time of Encounter: 09:00 - Assessment and plan (1) Right sided weakness Current Visit: Yes Status: Acute Assessment and plan: On 07/21, patient developed acute on chronic worsening right sided weakness and headache. CT head: 1. Increasing size of the hyperdense lesion in the previous resection cavity, now measuring 5 x 5 x 3.1 cm. Findings are compatible with a component of recurrent tumor superimposed on the hemorrhage within the cavity. 2. Progression of vasogenic edema in the left cerebral hemisphere with extension into the frontal lobe and extension into the corpus callosum 3. Worsening mass effect with 3 mm of midline shift. 4. Slight interval dilation of the temporal horns of the lateral ventricles without additional signs of acute hydrocephalus." Palliative care has been consulted previously regarding patients case, signed off earlier today as patient is undecided on Hospice. Decadron 4 mg IV q6 (2) Abscess of skin Current Visit: Yes Status: Acute Assessment and plan: -Patient was initially given vancomycin and doxycycline -Antibiotics of been discontinued -No evidence of infection at this time -Continue to monitor -Warm compresses and routine wound care -Wound care has been consulted -Doxycycline 100 mg by mouth twice a day for 10 days Qualifiers: Site of cutaneous abscess: other site Qualified Code(s): L02.818 - Cutaneous abscess of other sites (3) GI bleed Current Visit: Yes Status: Acute Assessment and plan: -Resolved; Hemoglobin stable -Patient opted for no endoscopic evaluation of this -Continues on Prilosec 20 mg by mouth twice a day Qualifiers: GI bleed type/associated pathology: melena Qualified Code(s): K92.1 - Melena (4) Pneumonia Current Visit: Yes Status: Acute Assessment and plan: -Completed antibiotics -Resolved Qualifiers: Pneumonia type: due to unspecified organism Laterality: left Lung location: upper lobe of lung Qualified Code(s): J18.1 - Lobar pneumonia, unspecified organism (5) Small cell lung cancer Current Visit: Yes Status: Acute Assessment and plan: -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 -Patient does have a living well. -Current CODE STATUS is DNR CCA -Oxycodone for pain control (6) Skin ulcer Current Visit: Yes Status: Acute Assessment and plan: -Multiple ulcerated areas on front and back side -Continue routine wound care Qualifiers: Non-pressure ulcer stage: limited to breakdown of skin Qualified Code(s): L98.491 - Non-pressure chronic ulcer of skin of other sites limited to breakdown of skin (7) Acute metabolic encephalopathy Current Visit: Yes Status: Resolved Assessment and plan: -Resolved -Was likely multifactorial, given blood loss, hyperglycemia, and extensive cancer history with metastasis -Will continue supportive care and treat underlying causes (8) Hyperglycemia Current Visit: Yes Status: Acute Assessment and plan: Continue accuchecks and SSI QID AC/HS Continue levemir added yesterday Continue diabetic diet (9) DVT prophylaxis Current Visit: Yes Status: Acute Assessment and plan: -Continue SCDs -Hold off on anticoagulation due to suspected GI bleed - Subjective Interval history: Patient was seen and examined at bedside this morning. - Constitutional Vitals: Temp Pulse Resp BP Pulse Ox 97.5 F L 79 15 111/64 94 07/22/17 07:11 07/22/17 07:11 07/22/17 07:11 07/22/17 07:11 07/22/17 07:11 General appearance: Present: cooperative, A&O X 3, pleasant, no acute distress, answers questions appropriately - Head Head exam: Present: atraumatic, normocephalic - Eye Eye exam: Present: PERRL, conjuntiva pink, sclera anicteric Pupils: Present: PERRL - Neck Neck exam general surgery: Present: supple, trachea midline. Absent: lymphadenopathy - Respiratory Respiratory exam: Present: CTAB. Absent: accessory muscle use, rales, rhonchi, wheezes - Cardiovascular Cardiovascular exam: Present: RRR, +S1, +S2. Absent: diastolic murmur, gallop, rubs, systolic murmur - GI/Abdominal GI/Abdominal exam: Present: normal bowel sounds, soft, no peritoneal signs. Absent: distended, tenderness - Extremities Exam Extremities exam: Present: warm, radial pulses palpable and symmetrical. Absent : calf tenderness, cyanotic, pedal edema - Neurological Exam Neurological exam: Present: CN II-XII intact, oriented X3, no focal deficits. Absent: pronater drift, facial droop, speech deficit - Skin Skin exam: Present: dry, intact Internal Medicine: Result - Labs CBC & Chem 7: 07/22/17 07:00 07/22/17 07:00 Labs: Short CBC 07/21/17 Range/Units 11:43 WBC 6.6 (4.3-11.1) K/mcL Hgb 10.9 L (12.9-16.9) g/dL Hct 35.8 L (37.5-50.1) % Plt Count 306 (140-400) K/mcL Neutrophils # 4.7 (1.6-8.9) K/mcL BMP 07/21/17 11:43 Sodium 136 Potassium 4.0 Chloride 101 Carbon Dioxide 29 BUN 11 Creatinine 0.60 L Glucose 153 H Calcium 7.7 L - ABG Interpretation ABG results: PT/INR, D-dimer D-Dimer 1936 ng/mLFEU (0-500) H 07/11/17 17:42 - Impressions Impressions Head CT 07/21/17 11:49 IMPRESSION: 1. Increasing size of the hyperdense lesion in the previous resection cavity, now measuring 5 x 5 x 3.1 cm. Findings are compatible with a component of recurrent tumor superimposed on the hemorrhage within the cavity. 2. Progression of vasogenic edema in the left cerebral hemisphere with extension into the frontal lobe and extension into the corpus callosum 3. Worsening mass effect with 3 mm of midline shift. 4. Slight interval dilation of the temporal horns of the lateral ventricles without additional signs of acute hydrocephalus. D/ / 07/21/2017 13:09:04 Gilbert Miramontes MD / [facility] Interpreting Provider: Gilbert Miramontes MD - VTE Reasons for not Prescribing Prophylaxis: Medical contraindication (Suspected GI bleed with anemia) Documentation of Mechanical Device: Intermittent pneumatic compression device Consult Discharge Plan - Plan Instructions: Chest Pain (DC), Gastrointestinal Bleeding (DC), Gastrointestinal Bleeding (GEN), Lung Cancer (DC), Lung Cancer (GEN), Anemia ( GEN), Pneumonia (DC) Referrals: Jt Cárdenas DO [Primary Care Provider] - <Temo Mandujano H - Last Filed: 07/22/17 10:33> Date of Encounter: 07/22/17 - Constitutional Vitals: Temp Pulse Resp BP Pulse Ox 97.5 F L 79 15 111/64 94 07/22/17 07:11 07/22/17 07:11 07/22/17 07:11 07/22/17 07:11 07/22/17 08:00 Internal Medicine: Result - Labs CBC & Chem 7: 07/22/17 07:00 07/22/17 07:00 Labs: Short CBC 07/21/17 07/22/17 Range/Units 11:43 07:00 WBC 6.6 5.5 (4.3-11.1) K/mcL Hgb 10.9 L 9.4 L D (12.9-16.9) g/dL Hct 35.8 L 30.5 L (37.5-50.1) % Plt Count 306 282 (140-400) K/mcL Neutrophils # 4.7 3.9 (1.6-8.9) K/mcL BMP 07/21/17 07/22/17 11:43 07:00 Sodium 136 140 Potassium 4.0 4.0 Chloride 101 106 Carbon Dioxide 29 30 H BUN 11 15 Creatinine 0.60 L 0.54 L Glucose 153 H 163 H Calcium 7.7 L 7.8 L - ABG Interpretation ABG results: PT/INR, D-dimer D-Dimer 1936 ng/mLFEU (0-500) H 07/11/17 17:42 - Impressions Impressions Head CT 07/21/17 11:49 IMPRESSION: 1. Increasing size of the hyperdense lesion in the previous resection cavity, now measuring 5 x 5 x 3.1 cm. Findings are compatible with a component of recurrent tumor superimposed on the hemorrhage within the cavity. 2. Progression of vasogenic edema in the left cerebral hemisphere with extension into the frontal lobe and extension into the corpus callosum 3. Worsening mass effect with 3 mm of midline shift. 4. Slight interval dilation of the temporal horns of the lateral ventricles without additional signs of acute hydrocephalus. D/ / 07/21/2017 13:09:04 Gilbert Miramontes MD / [facility] Interpreting Provider: Gilbert Miramontes MD - Attending Attestation Metastatic lung cancer, metastasis to brain untreatable The patient understands these not a curable condition, prefers to see Dr. Benson on again Acute blood loss anemia secondary to possible GI bleed, refused scopes Stable after transfusion MRSA infection/ulcers/cysts and multiple areas, continue doxycycline day #2 Hospice will be discussed I examined this patient and my medical decision-making was reviewed with the Resident Physician. I agree with the documented findings, disposition and treatment plan as described except to the extent set forth below.
[2017-07-22 07:42] LABS: Basophils % 0.4 %; Hematocrit 30.5 % (37.5-50.1); Hemoglobin 9.4 g/dL (12.9-16.9); Immature Granulocytes % 2.9 % (0-4); Lymphocytes # 1.2 K/mcL (0.6-4.6); Mean Corpuscular HGB Conc 30.8 g/dL (31.6-35.5); Mean Corpuscular Hemoglobin 29.7 pg (28.0-33.3); Mean Corpuscular Volume 96.2 fL (83.0-100.0); Mean Platelet Volume 9.5 fL (9.4-12.4); Monocytes # 0.2 K/mcL (0.0-1.3); Monocytes % 4.4 %; Neutrophils # 3.9 K/mcL (1.6-8.9); Nucleated Red Blood Cells 0.4 /100 WBC (0); Platelet Count 282 K/mcL (140-400); Red Blood Count 3.17 M/mcL (4.19-5.50); Red Cell Distribution Width 17.1 % (11.5-14.5); Segmented Neutrophils % 71.3 %
[2017-07-22 07:51] LABS: BUN/Creatinine Ratio 28 (6-26); Blood Urea Nitrogen 15 mg/dL (8-23); Calcium 7.8 mg/dL (8.6-10.3); Carbon Dioxide 30 mEq/L (23-29); Chloride 106 mEq/L (98-107); Glucose 163 mg/dL (70-105); Osmolality,Calculated 294 (280-300); Sodium 140 mEq/L (136-145); eGFR For African Americans > 60 (> 60); eGFR For Non-African Americans > 60 (> 60)
[2017-07-22] MEDS: Insulin LISPRO 300 UNITS/3 ML VIAL SQ SCH ×4 (08:39→21:32)
[2017-07-22] MEDS: Cyanocobalamin (B-12) 1,000 MCG TABLET PO SCH (08:40)
[2017-07-22] MEDS: Doxycycline 100 MG CAPSULE PO SCH ×2 (08:40→21:30)
[2017-07-22] MEDS: Insulin DETEMIR 100 UNIT/ML X5UNITS SQ SCH ×2 (08:43→21:32)
[2017-07-22] MEDS: Nystatin POWDER 30 GM BOTTLE TP SCH ×2 (08:58→21:31)
--- NOTE | 2017-07-22 15:12 | Palliative Progress Note ---
<[employer] - Last Filed: 07/22/17 15:10> Date of Encounter: 07/22/17 Time of Encounter: 15:10 - Assessment and plan (1) Goals of care, counseling/discussion Current Visit: Yes Status: Acute Assessment and plan: Had extensive conversation with patient today regarding his overall prognosis. He was informed that at this time there is no further treatment options available. He was told that although he wishes to have home health, he was likely benefit more from hospice, as home health would not be enough to fulfill his needs at this time. Plan: hospice vaccine customer representative will come out to talk to patient today. Planning for discharge with hospice. (2) Right sided weakness Current Visit: Yes Status: Acute Assessment and plan: Right-sided weakness present on upper and lower extremity. Head CT from 07/21/17 showed increasing size of hypertensive lesion in the previous resection cavity compatible with recurrent tumor, there is also progression of these a genic edema in the left cerebral hemisphere, worsening mass effect with midline shift. (3) Anemia Current Visit: Yes Status: Acute Assessment and plan: Symptomatic anemia secondary to suspected G.I. bleed. Patient has been seen by general surgery, and he has opted out of receiving any invasive procedures at this time. being medically managed. s/p transfusion of 3 units packed red blood cells. Qualifiers: Anemia type: unspecified type Qualified Code(s): D64.9 - Anemia, unspecified (4) GI bleed Current Visit: Yes Status: Acute Assessment and plan: Plan as above. Qualifiers: GI bleed type/associated pathology: melena Qualified Code(s): K92.1 - Melena (5) Pneumonia Current Visit: Yes Status: Acute Assessment and plan: CTA showed areas of consolidation and left upper lobe. Management per primary service Qualifiers: Pneumonia type: due to unspecified organism Laterality: left Lung location: upper lobe of lung Qualified Code(s): J18.1 - Lobar pneumonia, unspecified organism (6) DVT prophylaxis Current Visit: Yes Status: Acute Assessment and plan: EPCD - Time Spent With Patient Total time spent is greater than 50% in coordination of care (as documented) at patient's floor/unit and/or counseling patient: - Subjective Interval history: 61-year-old male evaluated at bedside. She admits to nausea without vomiting. He admits to chills. Admits to shortness of breath. Denies any new problems today. - Constitutional Vitals: Abnormal lab results RBC 3.17 M/mcL (4.19-5.50) L 07/22/17 07:00 Hgb 9.4 g/dL (12.9-16.9) L D 07/22/17 07:00 Hct 30.5 % (37.5-50.1) L 07/22/17 07:00 MCHC 30.8 g/dL (31.6-35.5) L 07/22/17 07:00 RDW 17.1 % (11.5-14.5) H 07/22/17 07:00 Band Neutrophils % 5.0 % (0-4) H 07/11/17 17:42 Metamyelocytes % 2.0 % (0) H 07/11/17 17:42 Myelocytes % 1.0 % (0) H 07/11/17 17:42 Promyelocytes % 1.0 % (0) H 07/11/17 17:42 Nucleated RBCs/100 WBC 0.4 /100 WBC (0) H 07/22/17 07:00 Platelet Estimate Increased (Normal) H 07/11/17 17:42 Polychromasia 2+ (Not Present) A 07/11/17 17:42 Hypochromasia Present (Not Present) A 07/11/17 17:42 Anisocytosis 2+ (Not Present) A 07/11/17 17:42 D-Dimer 1936 ng/mLFEU (0-500) H 07/11/17 17:42 Carbon Dioxide 30 mEq/L (23-29) H 07/22/17 07:00 Creatinine 0.54 mg/dL (0.70-1.30) L 07/22/17 07:00 BUN/Creatinine Ratio 28 (6-26) H 07/22/17 07:00 Glucose 163 mg/dL (70-105) H 07/22/17 07:00 POC Glucose 345 (58-89) H 07/21/17 20:09 Hemoglobin A1c 8.9 % (-5.6) H 07/12/17 01:54 Calcium 7.8 mg/dL (8.6-10.3) L 07/22/17 07:00 Stool Occult Blood Positive (Negative) A 07/14/17 09:40 General appearance: Present: no acute distress, thin - Head Head exam: Present: atraumatic, normocephalic - Neck Neck exam: Present: normal inspection. Absent: tenderness - Respiratory Respiratory exam: Present: CTAB - Cardiovascular Cardiovascular exam: Present: RRR, +S1, +S2 - GI/Abdominal GI/Abdominal exam: Present: normal bowel sounds, soft. Absent: distended, tenderness - Extremities Exam Extremities exam: Present: pedal edema (+2 bilateral lower extremity pitting edema.). Absent: tenderness - Neurological Exam Neurological exam: Present: alert, oriented X3 Additional comments: Residual right-sided weakness in both upper and lower extremities. - Skin Skin exam: Absent: cyanosis Palliative Quality Palliative Quality: Screen for Code Status: Yes, Screen for Goals of Care: Yes, Screen for Pain: Yes, If Pain Regimen Started, Initiate Bowel Regimen: Yes, Screen for Nausea/Vomitting: Yes - Labs CBC & Chem 7: 07/22/17 07:00 07/22/17 07:00 Labs: Laboratory Results - last 24 hr 07/21/17 07/21/17 07/22/17 16:35 20:09 07:00 WBC 5.5 RBC 3.17 L Hgb 9.4 L D Hct 30.5 L MCV 96.2 MCH 29.7 MCHC 30.8 L RDW 17.1 H Plt Count 282 MPV 9.5 Immature Gran % 2.9 Seg Neutrophils % 71.3 Lymphocytes % 21.0 Monocytes % 4.4 Eosinophils % 0.0 Basophils % 0.4 Neutrophils # 3.9 Lymphocytes # 1.2 Monocytes # 0.2 Eosinophils # 0.0 Basophils # 0.0 Nucleated RBCs/100 WBC 0.4 H Sodium Potassium Chloride Carbon Dioxide BUN Creatinine Est GFR ( Amer) Est GFR (Non-Af Amer) BUN/Creatinine Ratio Glucose POC Glucose 200 H 345 H Calculated Osmolality Calcium 07/22/17 07:00 WBC RBC Hgb Hct MCV MCH MCHC RDW Plt Count MPV Immature Gran % Seg Neutrophils % Lymphocytes % Monocytes % Eosinophils % Basophils % Neutrophils # Lymphocytes # Monocytes # Eosinophils # Basophils # Nucleated RBCs/100 WBC Sodium 140 Potassium 4.0 Chloride 106 Carbon Dioxide 30 H BUN 15 Creatinine 0.54 L Est GFR ( Amer) > 60 Est GFR (Non-Af Amer) > 60 BUN/Creatinine Ratio 28 H Glucose 163 H POC Glucose Calculated Osmolality 294 Calcium 7.8 L - ABG Interpretation ABG results: PT/INR, D-dimer D-Dimer 1936 ng/mLFEU (0-500) H 07/11/17 17:42 Consult Discharge Plan - Plan Instructions: Chest Pain (DC), Gastrointestinal Bleeding (DC), Gastrointestinal Bleeding (GEN), Lung Cancer (DC), Lung Cancer (GEN), Anemia ( GEN), Pneumonia (DC) Referrals: Jt Cárdenas DO [Primary Care Provider] - <Luis Fernando Benedict - Last Filed: 07/22/17 15:21> Date of Encounter: 07/22/17 - Assessment and plan (1) Small cell lung cancer Current Visit: Yes Status: Acute (2) Pneumonia Current Visit: Yes Status: Acute Qualifiers: Pneumonia type: due to unspecified organism Laterality: left Lung location: upper lobe of lung Qualified Code(s): J18.1 - Lobar pneumonia, unspecified organism (3) GI bleed Current Visit: Yes Status: Acute Qualifiers: GI bleed type/associated pathology: melena Qualified Code(s): K92.1 - Melena (4) Goals of care, counseling/discussion Current Visit: Yes Status: Acute - Time Spent With Patient Total time spent is greater than 50% in coordination of care (as documented) at patient's floor/unit and/or counseling patient: - Subjective Interval history: hospice will see pt for enrollment at time of d/c SW to discuss with pt's watch caser about hospice - Constitutional Vitals: Abnormal lab results RBC 3.17 M/mcL (4.19-5.50) L 07/22/17 07:00 Hgb 9.4 g/dL (12.9-16.9) L D 07/22/17 07:00 Hct 30.5 % (37.5-50.1) L 07/22/17 07:00 MCHC 30.8 g/dL (31.6-35.5) L 07/22/17 07:00 RDW 17.1 % (11.5-14.5) H 07/22/17 07:00 Band Neutrophils % 5.0 % (0-4) H 07/11/17 17:42 Metamyelocytes % 2.0 % (0) H 07/11/17 17:42 Myelocytes % 1.0 % (0) H 07/11/17 17:42 Promyelocytes % 1.0 % (0) H 07/11/17 17:42 Nucleated RBCs/100 WBC 0.4 /100 WBC (0) H 07/22/17 07:00 Platelet Estimate Increased (Normal) H 07/11/17 17:42 Polychromasia 2+ (Not Present) A 07/11/17 17:42 Hypochromasia Present (Not Present) A 07/11/17 17:42 Anisocytosis 2+ (Not Present) A 07/11/17 17:42 D-Dimer 1936 ng/mLFEU (0-500) H 07/11/17 17:42 Carbon Dioxide 30 mEq/L (23-29) H 07/22/17 07:00 Creatinine 0.54 mg/dL (0.70-1.30) L 07/22/17 07:00 BUN/Creatinine Ratio 28 (6-26) H 07/22/17 07:00 Glucose 163 mg/dL (70-105) H 07/22/17 07:00 POC Glucose 345 (58-89) H 07/21/17 20:09 Hemoglobin A1c 8.9 % (-5.6) H 07/12/17 01:54 Calcium 7.8 mg/dL (8.6-10.3) L 07/22/17 07:00 Stool Occult Blood Positive (Negative) A 07/14/17 09:40 - Attending Attestation I examined this patient and my medical decision-making was reviewed with the Resident Physician. I agree with the documented findings, disposition and treatment plan as described except to the extent set forth below. - Labs CBC & Chem 7: 07/22/17 07:00 07/22/17 07:00 Labs: Laboratory Results - last 24 hr 07/21/17 07/21/17 07/22/17 16:35 20:09 07:00 WBC 5.5 RBC 3.17 L Hgb 9.4 L D Hct 30.5 L MCV 96.2 MCH 29.7 MCHC 30.8 L RDW 17.1 H Plt Count 282 MPV 9.5 Immature Gran % 2.9 Seg Neutrophils % 71.3 Lymphocytes % 21.0 Monocytes % 4.4 Eosinophils % 0.0 Basophils % 0.4 Neutrophils # 3.9 Lymphocytes # 1.2 Monocytes # 0.2 Eosinophils # 0.0 Basophils # 0.0 Nucleated RBCs/100 WBC 0.4 H Sodium Potassium Chloride Carbon Dioxide BUN Creatinine Est GFR ( Amer) Est GFR (Non-Af Amer) BUN/Creatinine Ratio Glucose POC Glucose 200 H 345 H Calculated Osmolality Calcium 07/22/17 07:00 WBC RBC Hgb Hct MCV MCH MCHC RDW Plt Count MPV Immature Gran % Seg Neutrophils % Lymphocytes % Monocytes % Eosinophils % Basophils % Neutrophils # Lymphocytes # Monocytes # Eosinophils # Basophils # Nucleated RBCs/100 WBC Sodium 140 Potassium 4.0 Chloride 106 Carbon Dioxide 30 H BUN 15 Creatinine 0.54 L Est GFR ( Amer) > 60 Est GFR (Non-Af Amer) > 60 BUN/Creatinine Ratio 28 H Glucose 163 H POC Glucose Calculated Osmolality 294 Calcium 7.8 L - ABG Interpretation ABG results: PT/INR, D-dimer D-Dimer 1936 ng/mLFEU (0-500) H 07/11/17 17:42
--- NOTE | 2017-07-22 16:02 | General Surgery Progress Note ---
Date of Encounter: 07/22/17 Time of Encounter: 15:49 Subjective Patient reports: feels better Narrative: General Surgery - follow up abscess right suprapubic region. The erythema and swelling resolved Cultures related to aspiration 07/19/2017 - MRSA Patient is being treated with Doxycycline. Appears to have responded favorably. Patient also started on high dose steroids - as a result coordination and left arm function improved Please be aware that patient's initial presentation was for melena and profound anemia, H&H 5.6/19.3, likely due to UGI hemorrhage/gastric ulceration related to steroid therapy started shortly prior to presentation to [facility] CT of the head, 07/21/2017, confirmed the clinical findings of progression of metastatic small cell lung cancer with increased brain mets. Recommendation - continue comfort care measures per patient 's wishes. Objective Vital Signs - Last 8 Hours Resp Pulse Ox 07/22/17 15:27 16 92 07/22/17 10:38 16 96 07/22/17 08:00 94 Intake and Output 07/21/17 07/22/17 07/22/17 23:59 07:59 15:59 Intake Total 360 / 360 0 / 0 480 / 480 Output Total 0 / 0 1425 / 1425 500 / 500 Balance 360 / 360 -1425 / -1425 -20 / -20 Intake: Oral 360 / 360 0 / 0 480 / 480 Output: Urine 0 / 0 1425 / 1425 500 / 500 Other: Meal Dinner Lunch Percent of Meal Consumed 90% 100% Stool Size Moderate Stool Consistency formed # Voids 1 Weight 68 kg Blood Glucose* 345 170 219 Patient Weight 07/22/17 23:59 Weight 68 kg - Labs 07/22/17 07:00 07/22/17 07:00 Diabetes panel 07/22/17 Range/Units 07:00 Sodium 140 (136-145) mEq/L Potassium 4.0 (3.5-5.1) mEq/L Chloride 106 (98-107) mEq/L Carbon Dioxide 30 H (23-29) mEq/L BUN 15 (8-23) mg/dL Creatinine 0.54 L (0.70-1.30) mg/dL Glucose 163 H (70-105) mg/dL Calcium 7.8 L (8.6-10.3) mg/dL Calcium panel 07/22/17 Range/Units 07:00 Calcium 7.8 L (8.6-10.3) mg/dL Pituitary panel 07/22/17 Range/Units 07:00 Sodium 140 (136-145) mEq/L Potassium 4.0 (3.5-5.1) mEq/L Chloride 106 (98-107) mEq/L Carbon Dioxide 30 H (23-29) mEq/L BUN 15 (8-23) mg/dL Creatinine 0.54 L (0.70-1.30) mg/dL Glucose 163 H (70-105) mg/dL Calcium 7.8 L (8.6-10.3) mg/dL Adrenal panel 07/22/17 Range/Units 07:00 Sodium 140 (136-145) mEq/L Potassium 4.0 (3.5-5.1) mEq/L Chloride 106 (98-107) mEq/L Carbon Dioxide 30 H (23-29) mEq/L BUN 15 (8-23) mg/dL Creatinine 0.54 L (0.70-1.30) mg/dL Glucose 163 H (70-105) mg/dL Calcium 7.8 L (8.6-10.3) mg/dL - VTE Reasons for not Prescribing Prophylaxis: Medical contraindication (Suspected GI bleed with anemia) Documentation of Mechanical Device: Intermittent pneumatic compression device Consult Discharge Plan - Plan Instructions: Chest Pain (DC), Gastrointestinal Bleeding (DC), Gastrointestinal Bleeding (GEN), Lung Cancer (DC), Lung Cancer (GEN), Anemia ( GEN), Pneumonia (DC) Referrals: Jt Cárdenas DO [Primary Care Provider] -
[2017-07-22] MEDS: *HR* OxyCODONE Immed Rel 5 MG TABLET PO PRN (18:16)
[2017-07-22] MEDS: Mirtazapine 15 MG TABLET PO SCH (21:31)
[2017-07-23] MEDS: Dexamethasone 4 MG/ML VIAL IVP SCH ×2 (02:53→08:45)
[2017-07-23] MEDS: Ipratropium/Albuterol Neb 3 ML IH SCH ×4 (03:39→21:55)
[2017-07-23 04:55] LABS: Basophils % 0.4 %; Eosinophils % 0.6 %; Hematocrit 28.1 % (37.5-50.1); Hemoglobin 8.9 g/dL (12.9-16.9); Immature Granulocytes % 3.8 % (0-4); Lymphocytes % 27.7 %; Mean Corpuscular HGB Conc 31.7 g/dL (31.6-35.5); Mean Corpuscular Hemoglobin 30.4 pg (28.0-33.3); Mean Corpuscular Volume 95.9 fL (83.0-100.0); Mean Platelet Volume 9.4 fL (9.4-12.4); Monocytes # 0.5 K/mcL (0.0-1.3); Monocytes % 7.2 %; Neutrophils # 4.3 K/mcL (1.6-8.9); Platelet Count 308 K/mcL (140-400); Red Blood Count 2.93 M/mcL (4.19-5.50); Red Cell Distribution Width 17.2 % (11.5-14.5); Segmented Neutrophils % 60.3 %
[2017-07-23 05:11] LABS: BUN/Creatinine Ratio 33 (6-26); Blood Urea Nitrogen 17 mg/dL (8-23); Calcium 7.7 mg/dL (8.6-10.3); Carbon Dioxide 30 mEq/L (23-29); Chloride 108 mEq/L (98-107); Glucose 105 mg/dL (70-105); Osmolality,Calculated 296 (280-300); Potassium 3.8 mEq/L (3.5-5.1); Sodium 142 mEq/L (136-145); eGFR For African Americans > 60 (> 60); eGFR For Non-African Americans > 60 (> 60)
--- NOTE | 2017-07-23 08:28 | Internal Med Progress Note ---
<Gerry Gill - Last Filed: 07/23/17 08:27> Date of Encounter: 07/23/17 Time of Encounter: 08:27 - Assessment and plan (1) Right sided weakness Current Visit: Yes Status: Acute Assessment and plan: On 07/21, patient developed acute on chronic worsening right sided weakness and headache. CT head: 1. Increasing size of the hyperdense lesion in the previous resection cavity, now measuring 5 x 5 x 3.1 cm. Findings are compatible with a component of recurrent tumor superimposed on the hemorrhage within the cavity. 2. Progression of vasogenic edema in the left cerebral hemisphere with extension into the frontal lobe and extension into the corpus callosum 3. Worsening mass effect with 3 mm of midline shift. 4. Slight interval dilation of the temporal horns of the lateral ventricles without additional signs of acute hydrocephalus." Palliative care has been consulted previously regarding patients case, signed off earlier today as patient is undecided on Hospice. Decadron 4 mg IV q6 (2) Abscess of skin Current Visit: Yes Status: Acute Assessment and plan: -Patient was initially given vancomycin and doxycycline -Antibiotics of been discontinued -No evidence of infection at this time -Continue to monitor -Warm compresses and routine wound care -Wound care has been consulted -Doxycycline 100 mg by mouth twice a day for 10 days Qualifiers: Site of cutaneous abscess: other site Qualified Code(s): L02.818 - Cutaneous abscess of other sites (3) GI bleed Current Visit: Yes Status: Acute Assessment and plan: -Resolved; Hemoglobin stable -Patient opted for no endoscopic evaluation of this -Continues on Prilosec 20 mg by mouth twice a day Qualifiers: GI bleed type/associated pathology: melena Qualified Code(s): K92.1 - Melena (4) Pneumonia Current Visit: Yes Status: Acute Assessment and plan: -Completed antibiotics -Resolved Qualifiers: Pneumonia type: due to unspecified organism Laterality: left Lung location: upper lobe of lung Qualified Code(s): J18.1 - Lobar pneumonia, unspecified organism (5) Small cell lung cancer Current Visit: Yes Status: Acute Assessment and plan: -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 -Patient does have a living well. -Current CODE STATUS is DNR CCA -Oxycodone for pain control (6) Skin ulcer Current Visit: Yes Status: Acute Assessment and plan: -Multiple ulcerated areas on front and back side -Continue routine wound care Qualifiers: Non-pressure ulcer stage: limited to breakdown of skin Qualified Code(s): L98.491 - Non-pressure chronic ulcer of skin of other sites limited to breakdown of skin (7) Acute metabolic encephalopathy Current Visit: Yes Status: Resolved Assessment and plan: -Resolved -Was likely multifactorial, given blood loss, hyperglycemia, and extensive cancer history with metastasis -Will continue supportive care and treat underlying causes (8) Hyperglycemia Current Visit: Yes Status: Acute Assessment and plan: Continue accuchecks and SSI QID AC/HS Continue levemir added yesterday Continue diabetic diet (9) DVT prophylaxis Current Visit: Yes Status: Acute Assessment and plan: -Continue SCDs -Hold off on anticoagulation due to suspected GI bleed - Subjective Interval history: Patient was seen and examined at bedside this morning. - Constitutional Vitals: Temp Pulse Resp BP Pulse Ox 97.9 F 74 15 122/72 96 07/23/17 06:52 07/23/17 06:52 07/23/17 06:52 07/23/17 06:52 07/23/17 06:52 General appearance: Present: cooperative, A&O X 3, pleasant, no acute distress, answers questions appropriately - Head Head exam: Present: atraumatic, normocephalic - Eye Eye exam: Present: PERRL, conjuntiva pink, sclera anicteric Pupils: Present: PERRL - Neck Neck exam general surgery: Present: supple, trachea midline. Absent: lymphadenopathy - Respiratory Respiratory exam: Present: CTAB. Absent: accessory muscle use, rales, rhonchi, wheezes - Cardiovascular Cardiovascular exam: Present: RRR, +S1, +S2. Absent: diastolic murmur, gallop, rubs, systolic murmur - GI/Abdominal GI/Abdominal exam: Present: normal bowel sounds, soft, no peritoneal signs. Absent: distended, tenderness - Extremities Exam Extremities exam: Present: warm, radial pulses palpable and symmetrical. Absent : calf tenderness, cyanotic, pedal edema - Neurological Exam Neurological exam: Present: CN II-XII intact, oriented X3, no focal deficits. Absent: pronater drift, facial droop, speech deficit - Skin Skin exam: Present: dry, intact Internal Medicine: Result - Labs CBC & Chem 7: 07/23/17 04:15 07/23/17 04:15 Labs: Short CBC 07/23/17 Range/Units 04:15 WBC 7.1 (4.3-11.1) K/mcL Hgb 8.9 L (12.9-16.9) g/dL Hct 28.1 L (37.5-50.1) % Plt Count 308 (140-400) K/mcL Neutrophils # 4.3 (1.6-8.9) K/mcL BMP 07/23/17 04:15 Sodium 142 Potassium 3.8 Chloride 108 H Carbon Dioxide 30 H BUN 17 Creatinine 0.52 L Glucose 105 Calcium 7.7 L - ABG Interpretation ABG results: PT/INR, D-dimer D-Dimer 1936 ng/mLFEU (0-500) H 07/11/17 17:42 - Impressions Impressions Head CT 07/21/17 11:49 IMPRESSION: 1. Increasing size of the hyperdense lesion in the previous resection cavity, now measuring 5 x 5 x 3.1 cm. Findings are compatible with a component of recurrent tumor superimposed on the hemorrhage within the cavity. 2. Progression of vasogenic edema in the left cerebral hemisphere with extension into the frontal lobe and extension into the corpus callosum 3. Worsening mass effect with 3 mm of midline shift. 4. Slight interval dilation of the temporal horns of the lateral ventricles without additional signs of acute hydrocephalus. Critical results were called by Dr. Gilbert Miramontes MD to Dr. Hernandez On 07/21/2017 at 110pm. D/ / 07/21/2017 13:09:04 Gilbert Miramontes MD / [facility] Interpreting Provider: Gilbert Miramontes MD - VTE Reasons for not Prescribing Prophylaxis: Medical contraindication (Suspected GI bleed with anemia) Documentation of Mechanical Device: Intermittent pneumatic compression device Consult Discharge Plan - Plan Instructions: Chest Pain (DC), Gastrointestinal Bleeding (DC), Gastrointestinal Bleeding (GEN), Lung Cancer (DC), Lung Cancer (GEN), Anemia ( GEN), Pneumonia (DC) Referrals: Jt Cárdenas DO [Primary Care Provider] - <Temo Mandujano H - Last Filed: 07/23/17 10:22> Date of Encounter: 07/23/17 - Constitutional Vitals: Temp Pulse Resp BP Pulse Ox 97.9 F 74 15 122/72 96 07/23/17 06:52 07/23/17 06:52 07/23/17 06:52 07/23/17 06:52 07/23/17 06:52 Internal Medicine: Result - Labs CBC & Chem 7: 07/23/17 04:15 07/23/17 04:15 Labs: Short CBC 07/23/17 Range/Units 04:15 WBC 7.1 (4.3-11.1) K/mcL Hgb 8.9 L (12.9-16.9) g/dL Hct 28.1 L (37.5-50.1) % Plt Count 308 (140-400) K/mcL Neutrophils # 4.3 (1.6-8.9) K/mcL BMP 07/23/17 04:15 Sodium 142 Potassium 3.8 Chloride 108 H Carbon Dioxide 30 H BUN 17 Creatinine 0.52 L Glucose 105 Calcium 7.7 L - ABG Interpretation ABG results: PT/INR, D-dimer D-Dimer 1936 ng/mLFEU (0-500) H 07/11/17 17:42 - Impressions Impressions Head CT 07/21/17 11:49 IMPRESSION: 1. Increasing size of the hyperdense lesion in the previous resection cavity, now measuring 5 x 5 x 3.1 cm. Findings are compatible with a component of recurrent tumor superimposed on the hemorrhage within the cavity. 2. Progression of vasogenic edema in the left cerebral hemisphere with extension into the frontal lobe and extension into the corpus callosum 3. Worsening mass effect with 3 mm of midline shift. 4. Slight interval dilation of the temporal horns of the lateral ventricles without additional signs of acute hydrocephalus. Critical results were called by Dr. Gilbert Miramontes MD to Dr. Hernandez On 07/21/2017 at 110pm. D/ / 07/21/2017 13:09:04 Gilbert Miramontes MD / [facility] Interpreting Provider: Gilbert Miramontes MD - Attending Attestation Metastatic lung cancer, metastasis to brain untreatable The patient understands these not a curable condition Acute blood loss anemia secondary to possible GI bleed, refused scopes Stable after transfusion MRSA infection/ulcers/cysts and multiple areas, continue doxycycline day #3 Hospice to be arranged at home tomorrow I examined this patient and my medical decision-making was reviewed with the Resident Physician. I agree with the documented findings, disposition and treatment plan as described except to the extent set forth below.
[2017-07-23] MEDS: Doxycycline 100 MG CAPSULE PO SCH ×2 (08:45→20:49)
[2017-07-23] MEDS: Cyanocobalamin (B-12) 1,000 MCG TABLET PO SCH (08:45)
[2017-07-23] MEDS: Insulin DETEMIR 100 UNIT/ML X5UNITS SQ SCH ×2 (08:45→21:05)
[2017-07-23] MEDS: Insulin LISPRO 300 UNITS/3 ML VIAL SQ SCH ×4 (08:46→20:50)
[2017-07-23] MEDS: Nystatin POWDER 30 GM BOTTLE TP SCH ×2 (08:46→20:48)
--- NOTE | 2017-07-23 09:14 | Palliative Progress Note ---
<BarronAsh - Last Filed: 07/23/17 09:11> Date of Encounter: 07/23/17 Time of Encounter: 09:14 - Assessment and plan (1) Goals of care, counseling/discussion Current Visit: Yes Status: Acute Assessment and plan: DNR CC Plan: likely discharge back home tomorrow with hospice. (2) Right sided weakness Current Visit: Yes Status: Acute Assessment and plan: Right-sided weakness present on upper and lower extremity. Head CT from 07/21/17 showed increasing size of hypertensive lesion in the previous resection cavity compatible with recurrent tumor, there is also progression of these a genic edema in the left cerebral hemisphere, worsening mass effect with midline shift. (3) Anemia Current Visit: Yes Status: Acute Assessment and plan: Symptomatic anemia secondary to suspected G.I. bleed. Patient has been seen by general surgery, and he has opted out of receiving any invasive procedures at this time. being medically managed. s/p transfusion of 3 units packed red blood cells. Qualifiers: Anemia type: unspecified type Qualified Code(s): D64.9 - Anemia, unspecified (4) GI bleed Current Visit: Yes Status: Acute Assessment and plan: Plan as above. Qualifiers: GI bleed type/associated pathology: melena Qualified Code(s): K92.1 - Melena (5) Pneumonia Current Visit: Yes Status: Acute Assessment and plan: CTA showed areas of consolidation and left upper lobe. Management per primary service Qualifiers: Pneumonia type: due to unspecified organism Laterality: left Lung location: upper lobe of lung Qualified Code(s): J18.1 - Lobar pneumonia, unspecified organism (6) DVT prophylaxis Current Visit: Yes Status: Acute Assessment and plan: EPCD - Time Spent With Patient Total time spent is greater than 50% in coordination of care (as documented) at patient's floor/unit and/or counseling patient: - Subjective Interval history: 61-year-old male evaluated at bedside. He was sitting up in bed eating breakfast. He denies nausea, vomiting, diarrhea, fever, chills. He denies any new problems today. - Constitutional Vitals: Abnormal lab results RBC 2.93 M/mcL (4.19-5.50) L 07/23/17 04:15 Hgb 8.9 g/dL (12.9-16.9) L 07/23/17 04:15 Hct 28.1 % (37.5-50.1) L 07/23/17 04:15 RDW 17.2 % (11.5-14.5) H 07/23/17 04:15 Band Neutrophils % 5.0 % (0-4) H 07/11/17 17:42 Metamyelocytes % 2.0 % (0) H 07/11/17 17:42 Myelocytes % 1.0 % (0) H 07/11/17 17:42 Promyelocytes % 1.0 % (0) H 07/11/17 17:42 Nucleated RBCs/100 WBC 0.4 /100 WBC (0) H 07/22/17 07:00 Platelet Estimate Increased (Normal) H 07/11/17 17:42 Polychromasia 2+ (Not Present) A 07/11/17 17:42 Hypochromasia Present (Not Present) A 07/11/17 17:42 Anisocytosis 2+ (Not Present) A 07/11/17 17:42 D-Dimer 1936 ng/mLFEU (0-500) H 07/11/17 17:42 Chloride 108 mEq/L (98-107) H 07/23/17 04:15 Carbon Dioxide 30 mEq/L (23-29) H 07/23/17 04:15 Creatinine 0.52 mg/dL (0.70-1.30) L 07/23/17 04:15 BUN/Creatinine Ratio 33 (6-26) H 07/23/17 04:15 POC Glucose 99 (58-89) H 07/23/17 06:57 Hemoglobin A1c 8.9 % (-5.6) H 07/12/17 01:54 Calcium 7.7 mg/dL (8.6-10.3) L 07/23/17 04:15 Stool Occult Blood Positive (Negative) A 07/14/17 09:40 General appearance: Present: thin - Head Head exam: Present: atraumatic, normocephalic - Respiratory Respiratory exam: Present: CTAB - Cardiovascular Cardiovascular exam: Present: RRR, +S1, +S2 - GI/Abdominal GI/Abdominal exam: Present: distended, normal bowel sounds, soft. Absent: tenderness - Extremities Exam Additional comments: +2 bilateral lower extremity pitting edema. +1 pitting edema and right upper extremity. - Neurological Exam Neurological exam: Present: alert, oriented X3 Additional comments: Residual right-sided deficits present on upper and lower extremity. - Psychiatric Psychiatric exam: Present: flat affect Palliative Quality Palliative Quality: Screen for Code Status: Yes, Screen for Goals of Care: Yes, Screen for Pain: Yes, If Pain Regimen Started, Initiate Bowel Regimen: Yes, Screen for Nausea/Vomitting: Yes Code Status: 07/12/17 01:04 Resuscitation Status: Active [RES] Routine Comment: Resuscitation Status: DNR-Comfort Care - Labs CBC & Chem 7: 07/23/17 04:15 07/23/17 04:15 Labs: Laboratory Results - last 24 hr 07/23/17 07/23/17 07/23/17 04:15 04:15 06:57 WBC 7.1 RBC 2.93 L Hgb 8.9 L Hct 28.1 L MCV 95.9 MCH 30.4 MCHC 31.7 RDW 17.2 H Plt Count 308 MPV 9.4 Immature Gran % 3.8 Seg Neutrophils % 60.3 Lymphocytes % 27.7 Monocytes % 7.2 Eosinophils % 0.6 Basophils % 0.4 Neutrophils # 4.3 Lymphocytes # 2.0 Monocytes # 0.5 Eosinophils # 0.0 Basophils # 0.0 Sodium 142 Potassium 3.8 Chloride 108 H Carbon Dioxide 30 H BUN 17 Creatinine 0.52 L Est GFR ( Amer) > 60 Est GFR (Non-Af Amer) > 60 BUN/Creatinine Ratio 33 H Glucose 105 POC Glucose 99 H Calculated Osmolality 296 Calcium 7.7 L - Impressions Impressions Head CT 07/21/17 11:49 IMPRESSION: 1. Increasing size of the hyperdense lesion in the previous resection cavity, now measuring 5 x 5 x 3.1 cm. Findings are compatible with a component of recurrent tumor superimposed on the hemorrhage within the cavity. 2. Progression of vasogenic edema in the left cerebral hemisphere with extension into the frontal lobe and extension into the corpus callosum 3. Worsening mass effect with 3 mm of midline shift. 4. Slight interval dilation of the temporal horns of the lateral ventricles without additional signs of acute hydrocephalus. Critical results were called by Dr. Gilbert Miramontes MD to Dr. Hernandez On 07/21/2017 at 110pm. D/ / 07/21/2017 13:09:04 Gilbert Miramontes MD / erin Interpreting Provider: Gilbert Miramontes MD - ABG Interpretation ABG results: PT/INR, D-dimer D-Dimer 1936 ng/mLFEU (0-500) H 07/11/17 17:42 Consult Discharge Plan - Plan Instructions: Chest Pain (DC), Gastrointestinal Bleeding (DC), Gastrointestinal Bleeding (GEN), Lung Cancer (DC), Lung Cancer (GEN), Anemia ( GEN), Pneumonia (DC) Referrals: Jt Cárdenas DO [Primary Care Provider] - <Luis Fernando Benedict - Last Filed: 07/23/17 13:00> Date of Encounter: 07/23/17 - Assessment and plan (1) Small cell lung cancer Current Visit: Yes Status: Acute (2) Pneumonia Current Visit: Yes Status: Acute Qualifiers: Pneumonia type: due to unspecified organism Laterality: left Lung location: upper lobe of lung Qualified Code(s): J18.1 - Lobar pneumonia, unspecified organism (3) GI bleed Current Visit: Yes Status: Acute Qualifiers: GI bleed type/associated pathology: melena Qualified Code(s): K92.1 - Melena (4) Goals of care, counseling/discussion Current Visit: Yes Status: Acute - Time Spent With Patient Total time spent is greater than 50% in coordination of care (as documented) at patient's floor/unit and/or counseling patient: - Constitutional Vitals: Abnormal lab results RBC 2.93 M/mcL (4.19-5.50) L 07/23/17 04:15 Hgb 8.9 g/dL (12.9-16.9) L 07/23/17 04:15 Hct 28.1 % (37.5-50.1) L 07/23/17 04:15 RDW 17.2 % (11.5-14.5) H 07/23/17 04:15 Band Neutrophils % 5.0 % (0-4) H 07/11/17 17:42 Metamyelocytes % 2.0 % (0) H 07/11/17 17:42 Myelocytes % 1.0 % (0) H 07/11/17 17:42 Promyelocytes % 1.0 % (0) H 07/11/17 17:42 Nucleated RBCs/100 WBC 0.4 /100 WBC (0) H 07/22/17 07:00 Platelet Estimate Increased (Normal) H 07/11/17 17:42 Polychromasia 2+ (Not Present) A 07/11/17 17:42 Hypochromasia Present (Not Present) A 07/11/17 17:42 Anisocytosis 2+ (Not Present) A 07/11/17 17:42 D-Dimer 1936 ng/mLFEU (0-500) H 07/11/17 17:42 Chloride 108 mEq/L (98-107) H 07/23/17 04:15 Carbon Dioxide 30 mEq/L (23-29) H 07/23/17 04:15 Creatinine 0.52 mg/dL (0.70-1.30) L 07/23/17 04:15 BUN/Creatinine Ratio 33 (6-26) H 07/23/17 04:15 POC Glucose 99 (58-89) H 07/23/17 06:57 Hemoglobin A1c 8.9 % (-5.6) H 07/12/17 01:54 Calcium 7.7 mg/dL (8.6-10.3) L 07/23/17 04:15 Stool Occult Blood Positive (Negative) A 07/14/17 09:40 - Attending Attestation I examined this patient and my medical decision-making was reviewed with the Resident Physician. I agree with the documented findings, disposition and treatment plan as described except to the extent set forth below. Palliative Quality Code Status: 07/12/17 01:04 Resuscitation Status: Active [RES] Routine Comment: Resuscitation Status: DNR-Comfort Care - Labs CBC & Chem 7: 07/23/17 04:15 07/23/17 04:15 Labs: Laboratory Results - last 24 hr 07/22/17 07/22/17 07/22/17 07:14 11:26 16:17 WBC RBC Hgb Hct MCV MCH MCHC RDW Plt Count MPV Immature Gran % Seg Neutrophils % Lymphocytes % Monocytes % Eosinophils % Basophils % Neutrophils # Lymphocytes # Monocytes # Eosinophils # Basophils # Sodium Potassium Chloride Carbon Dioxide BUN Creatinine Est GFR ( Amer) Est GFR (Non-Af Amer) BUN/Creatinine Ratio Glucose POC Glucose 170 H 219 H 340 H Calculated Osmolality Calcium 07/22/17 07/23/17 07/23/17 20:29 04:15 04:15 WBC 7.1 RBC 2.93 L Hgb 8.9 L Hct 28.1 L MCV 95.9 MCH 30.4 MCHC 31.7 RDW 17.2 H Plt Count 308 MPV 9.4 Immature Gran % 3.8 Seg Neutrophils % 60.3 Lymphocytes % 27.7 Monocytes % 7.2 Eosinophils % 0.6 Basophils % 0.4 Neutrophils # 4.3 Lymphocytes # 2.0 Monocytes # 0.5 Eosinophils # 0.0 Basophils # 0.0 Sodium 142 Potassium 3.8 Chloride 108 H Carbon Dioxide 30 H BUN 17 Creatinine 0.52 L Est GFR ( Amer) > 60 Est GFR (Non-Af Amer) > 60 BUN/Creatinine Ratio 33 H Glucose 105 POC Glucose 251 H Calculated Osmolality 296 Calcium 7.7 L 07/23/17 06:57 WBC RBC Hgb Hct MCV MCH MCHC RDW Plt Count MPV Immature Gran % Seg Neutrophils % Lymphocytes % Monocytes % Eosinophils % Basophils % Neutrophils # Lymphocytes # Monocytes # Eosinophils # Basophils # Sodium Potassium Chloride Carbon Dioxide BUN Creatinine Est GFR ( Amer) Est GFR (Non-Af Amer) BUN/Creatinine Ratio Glucose POC Glucose 99 H Calculated Osmolality Calcium - Impressions Impressions Head CT 07/21/17 11:49 IMPRESSION: 1. Increasing size of the hyperdense lesion in the previous resection cavity, now measuring 5 x 5 x 3.1 cm. Findings are compatible with a component of recurrent tumor superimposed on the hemorrhage within the cavity. 2. Progression of vasogenic edema in the left cerebral hemisphere with extension into the frontal lobe and extension into the corpus callosum 3. Worsening mass effect with 3 mm of midline shift. 4. Slight interval dilation of the temporal horns of the lateral ventricles without additional signs of acute hydrocephalus. Critical results were called by Dr. Gilbert Miramontes MD to Dr. Hernandez On 07/21/2017 at 110pm. D/ / 07/21/2017 13:09:04 Gilbert [facility]ontes MD / [facility] Interpreting Provider: Gilbert Miramontes MD - ABG Interpretation ABG results: PT/INR, D-dimer D-Dimer 1936 ng/mLFEU (0-500) H 07/11/17 17:42
[2017-07-23] MEDS: Mirtazapine 15 MG TABLET PO SCH (20:49)
[2017-07-24] MEDS: Ipratropium/Albuterol Neb 3 ML IH SCH ×2 (03:57→11:13)
[2017-07-24 06:45] LABS: Hematocrit 30.9 % (37.5-50.1); Hemoglobin 9.5 g/dL (12.9-16.9); Mean Corpuscular HGB Conc 30.7 g/dL (31.6-35.5); Mean Corpuscular Hemoglobin 29.6 pg (28.0-33.3); Mean Corpuscular Volume 96.3 fL (83.0-100.0); Mean Platelet Volume 9.3 fL (9.4-12.4); Nucleated Red Blood Cells 0.8 /100 WBC (0); Platelet Count 357 K/mcL (140-400); Red Blood Count 3.21 M/mcL (4.19-5.50); Red Cell Distribution Width 17.2 % (11.5-14.5)
[2017-07-24 06:47] LABS: BUN/Creatinine Ratio 25 (6-26); Blood Urea Nitrogen 16 mg/dL (8-23); Calcium 7.8 mg/dL (8.6-10.3); Carbon Dioxide 31 mEq/L (23-29); Chloride 105 mEq/L (98-107); Glucose 170 mg/dL (70-105); Osmolality,Calculated 297 (280-300); Potassium 4.1 mEq/L (3.5-5.1); Sodium 141 mEq/L (136-145); eGFR For African Americans > 60 (> 60); eGFR For Non-African Americans > 60 (> 60)
--- NOTE | 2017-07-24 07:46 | Palliative Progress Note ---
<Ash Mart - Last Filed: 07/24/17 07:44> Date of Encounter: 07/24/17 Time of Encounter: 07:44 - Assessment and plan (1) Goals of care, counseling/discussion Current Visit: Yes Status: Acute Assessment and plan: DNR CC Plan: discharge back home today with hospice (2) Right sided weakness Current Visit: Yes Status: Acute Assessment and plan: Right-sided weakness present on upper and lower extremity. Head CT from 07/21/17 showed increasing size of hypertensive lesion in the previous resection cavity compatible with recurrent tumor, there is also progression of these a genic edema in the left cerebral hemisphere, worsening mass effect with midline shift. (3) Anemia Current Visit: Yes Status: Acute Assessment and plan: Symptomatic anemia secondary to suspected G.I. bleed. Patient has been seen by general surgery, and he has opted out of receiving any invasive procedures at this time. being medically managed. s/p transfusion of 3 units packed red blood cells. Qualifiers: Anemia type: unspecified type Qualified Code(s): D64.9 - Anemia, unspecified (4) GI bleed Current Visit: Yes Status: Acute Assessment and plan: Plan as above. Qualifiers: GI bleed type/associated pathology: melena Qualified Code(s): K92.1 - Melena (5) Pneumonia Current Visit: Yes Status: Acute Assessment and plan: CTA showed areas of consolidation and left upper lobe. Management per primary service Qualifiers: Pneumonia type: due to unspecified organism Laterality: left Lung location: upper lobe of lung Qualified Code(s): J18.1 - Lobar pneumonia, unspecified organism (6) Small cell lung cancer Current Visit: Yes Status: Acute Assessment and plan: Also lung cancer with Mets to the brain (7) DVT prophylaxis Current Visit: Yes Status: Acute Assessment and plan: EPCD - Time Spent With Patient Total time spent is greater than 50% in coordination of care (as documented) at patient's floor/unit and/or counseling patient: - Subjective Interval history: 61-year-old male evaluated at bedside. Patient was laying in bed asleep. He denies any new problems today. - Constitutional Vitals: Abnormal lab results RBC 3.21 M/mcL (4.19-5.50) L 07/24/17 06:12 Hgb 9.5 g/dL (12.9-16.9) L 07/24/17 06:12 Hct 30.9 % (37.5-50.1) L 07/24/17 06:12 MCHC 30.7 g/dL (31.6-35.5) L 07/24/17 06:12 RDW 17.2 % (11.5-14.5) H 07/24/17 06:12 MPV 9.3 fL (9.4-12.4) L 07/24/17 06:12 Band Neutrophils % 5.0 % (0-4) H 07/11/17 17:42 Metamyelocytes % 2.0 % (0) H 07/11/17 17:42 Myelocytes % 1.0 % (0) H 07/11/17 17:42 Promyelocytes % 1.0 % (0) H 07/11/17 17:42 Nucleated RBCs/100 WBC 0.8 /100 WBC (0) H 07/24/17 06:12 Platelet Estimate Increased (Normal) H 07/11/17 17:42 Polychromasia 2+ (Not Present) A 07/11/17 17:42 Hypochromasia Present (Not Present) A 07/11/17 17:42 Anisocytosis 2+ (Not Present) A 07/11/17 17:42 D-Dimer 1936 ng/mLFEU (0-500) H 07/11/17 17:42 Carbon Dioxide 31 mEq/L (23-29) H 07/24/17 06:12 Creatinine 0.65 mg/dL (0.70-1.30) L 07/24/17 06:12 Glucose 170 mg/dL (70-105) H 07/24/17 06:12 POC Glucose 319 (58-89) H 07/23/17 20:42 Hemoglobin A1c 8.9 % (-5.6) H 07/12/17 01:54 Calcium 7.8 mg/dL (8.6-10.3) L 07/24/17 06:12 Stool Occult Blood Positive (Negative) A 07/14/17 09:40 General appearance: Present: no acute distress, thin - Head Head exam: Present: atraumatic, normocephalic - Respiratory Respiratory exam: Present: CTAB - Cardiovascular Cardiovascular exam: Present: RRR, +S1, +S2 - Extremities Exam Additional comments: +2 bilateral lower extremity pitting edema. - Neurological Exam Neurological exam: Present: alert, oriented X3 Additional comments: Decreased muscle strength present on right upper and lower extremity Palliative Quality Palliative Quality: Screen for Code Status: Yes, Screen for Goals of Care: Yes, Screen for Pain: Yes, If Pain Regimen Started, Initiate Bowel Regimen: Yes, Screen for Nausea/Vomitting: Yes Code Status: 07/12/17 01:04 Resuscitation Status: Active [RES] Routine Comment: Resuscitation Status: DNR-Comfort Care - Labs CBC & Chem 7: 07/24/17 06:12 07/24/17 06:12 Labs: Laboratory Results - last 24 hr 07/22/17 07/22/17 07/22/17 07:14 11:26 16:17 WBC RBC Hgb Hct MCV MCH MCHC RDW Plt Count MPV Nucleated RBCs/100 WBC Sodium Potassium Chloride Carbon Dioxide BUN Creatinine Est GFR ( Amer) Est GFR (Non-Af Amer) BUN/Creatinine Ratio Glucose POC Glucose 170 H 219 H 340 H Calculated Osmolality Calcium 07/22/17 07/23/17 07/23/17 20:29 11:24 16:04 WBC RBC Hgb Hct MCV MCH MCHC RDW Plt Count MPV Nucleated RBCs/100 WBC Sodium Potassium Chloride Carbon Dioxide BUN Creatinine Est GFR ( Amer) Est GFR (Non-Af Amer) BUN/Creatinine Ratio Glucose POC Glucose 251 H 236 H 302 H Calculated Osmolality Calcium 07/23/17 07/23/17 07/24/17 20:39 20:42 06:12 WBC 6.6 RBC 3.21 L Hgb 9.5 L Hct 30.9 L MCV 96.3 MCH 29.6 MCHC 30.7 L RDW 17.2 H Plt Count 357 MPV 9.3 L Nucleated RBCs/100 WBC 0.8 H Sodium Potassium Chloride Carbon Dioxide BUN Creatinine Est GFR ( Amer) Est GFR (Non-Af Amer) BUN/Creatinine Ratio Glucose POC Glucose 320 H 319 H Calculated Osmolality Calcium 07/24/17 06:12 WBC RBC Hgb Hct MCV MCH MCHC RDW Plt Count MPV Nucleated RBCs/100 WBC Sodium 141 Potassium 4.1 Chloride 105 Carbon Dioxide 31 H BUN 16 Creatinine 0.65 L Est GFR ( Amer) > 60 Est GFR (Non-Af Amer) > 60 BUN/Creatinine Ratio 25 Glucose 170 H POC Glucose Calculated Osmolality 297 Calcium 7.8 L - ABG Interpretation ABG results: PT/INR, D-dimer D-Dimer 1936 ng/mLFEU (0-500) H 07/11/17 17:42 Consult Discharge Plan - Plan Instructions: Chest Pain (DC), Gastrointestinal Bleeding (DC), Gastrointestinal Bleeding (GEN), Lung Cancer (DC), Lung Cancer (GEN), Anemia ( GEN), Pneumonia (DC) Referrals: Jt Cárdenas DO [Primary Care Provider] - Prescriptions: Dexamethasone [Decadron] 4 mg PO BID #20 tab LORazepam Oral Conc [Ativan Oral Conc] 1 mg PO Q4H 7 Days #30 mls Morphine Oral CONC [Roxanol] 0.25 ml SL Q4H PRN 5 Days #30 ml PRN Reason: sob or pain OxyCODONE Immed Rel [Roxicodone 5 MG] 5 mg PO Q3H PRN 5 Days #30 tablet PRN Reason: pain or sob <Luis Fernando Benedict - Last Filed: 07/24/17 07:57> Date of Encounter: 07/24/17 - Assessment and plan (1) Small cell lung cancer Current Visit: Yes Status: Acute (2) Pneumonia Current Visit: Yes Status: Acute Qualifiers: Pneumonia type: due to unspecified organism Laterality: left Lung location: upper lobe of lung Qualified Code(s): J18.1 - Lobar pneumonia, unspecified organism (3) GI bleed Current Visit: Yes Status: Acute Qualifiers: GI bleed type/associated pathology: melena Qualified Code(s): K92.1 - Melena (4) Goals of care, counseling/discussion Current Visit: Yes Status: Acute - Time Spent With Patient Total time spent is greater than 50% in coordination of care (as documented) at patient's floor/unit and/or counseling patient: - Constitutional Vitals: Abnormal lab results RBC 3.21 M/mcL (4.19-5.50) L 07/24/17 06:12 Hgb 9.5 g/dL (12.9-16.9) L 07/24/17 06:12 Hct 30.9 % (37.5-50.1) L 07/24/17 06:12 MCHC 30.7 g/dL (31.6-35.5) L 07/24/17 06:12 RDW 17.2 % (11.5-14.5) H 07/24/17 06:12 MPV 9.3 fL (9.4-12.4) L 07/24/17 06:12 Band Neutrophils % 5.0 % (0-4) H 07/11/17 17:42 Metamyelocytes % 2.0 % (0) H 07/11/17 17:42 Myelocytes % 1.0 % (0) H 07/11/17 17:42 Promyelocytes % 1.0 % (0) H 07/11/17 17:42 Nucleated RBCs/100 WBC 0.8 /100 WBC (0) H 07/24/17 06:12 Platelet Estimate Increased (Normal) H 07/11/17 17:42 Polychromasia 2+ (Not Present) A 07/11/17 17:42 Hypochromasia Present (Not Present) A 07/11/17 17:42 Anisocytosis 2+ (Not Present) A 07/11/17 17:42 D-Dimer 1936 ng/mLFEU (0-500) H 07/11/17 17:42 Carbon Dioxide 31 mEq/L (23-29) H 07/24/17 06:12 Creatinine 0.65 mg/dL (0.70-1.30) L 07/24/17 06:12 Glucose 170 mg/dL (70-105) H 07/24/17 06:12 POC Glucose 319 (58-89) H 07/23/17 20:42 Hemoglobin A1c 8.9 % (-5.6) H 07/12/17 01:54 Calcium 7.8 mg/dL (8.6-10.3) L 07/24/17 06:12 Stool Occult Blood Positive (Negative) A 07/14/17 09:40 - Attending Attestation I examined this patient and my medical decision-making was reviewed with the Resident Physician. I agree with the documented findings, disposition and treatment plan as described except to the extent set forth below. Palliative Quality Code Status: 07/12/17 01:04 Resuscitation Status: Active [RES] Routine Comment: Resuscitation Status: DNR-Comfort Care - Labs CBC & Chem 7: 07/24/17 06:12 07/24/17 06:12 Labs: Laboratory Results - last 24 hr 07/22/17 07/22/17 07/22/17 07:14 11:26 16:17 WBC RBC Hgb Hct MCV MCH MCHC RDW Plt Count MPV Nucleated RBCs/100 WBC Sodium Potassium Chloride Carbon Dioxide BUN Creatinine Est GFR ( Amer) Est GFR (Non-Af Amer) BUN/Creatinine Ratio Glucose POC Glucose 170 H 219 H 340 H Calculated Osmolality Calcium 07/22/17 07/23/17 07/23/17 20:29 11:24 16:04 WBC RBC Hgb Hct MCV MCH MCHC RDW Plt Count MPV Nucleated RBCs/100 WBC Sodium Potassium Chloride Carbon Dioxide BUN Creatinine Est GFR ( Amer) Est GFR (Non-Af Amer) BUN/Creatinine Ratio Glucose POC Glucose 251 H 236 H 302 H Calculated Osmolality Calcium 07/23/17 07/23/17 07/24/17 20:39 20:42 06:12 WBC 6.6 RBC 3.21 L Hgb 9.5 L Hct 30.9 L MCV 96.3 MCH 29.6 MCHC 30.7 L RDW 17.2 H Plt Count 357 MPV 9.3 L Nucleated RBCs/100 WBC 0.8 H Sodium Potassium Chloride Carbon Dioxide BUN Creatinine Est GFR ( Amer) Est GFR (Non-Af Amer) BUN/Creatinine Ratio Glucose POC Glucose 320 H 319 H Calculated Osmolality Calcium 07/24/17 06:12 WBC RBC Hgb Hct MCV MCH MCHC RDW Plt Count MPV Nucleated RBCs/100 WBC Sodium 141 Potassium 4.1 Chloride 105 Carbon Dioxide 31 H BUN 16 Creatinine 0.65 L Est GFR ( Amer) > 60 Est GFR (Non-Af Amer) > 60 BUN/Creatinine Ratio 25 Glucose 170 H POC Glucose Calculated Osmolality 297 Calcium 7.8 L - ABG Interpretation ABG results: PT/INR, D-dimer D-Dimer 1936 ng/mLFEU (0-500) H 07/11/17 17:42
--- NOTE | 2017-07-24 07:56 | Event Note ---
Date of Encounter: 07/24/17 Time of Encounter: 07:55 Hospice medical records clerk certification of terminal illness: Hospice benefit. Start: 07/24/2017 Hospice benefit. 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 Has comorbidities of GI bleed. Patient wishes to have no further aggressive treatment wish to avail himself of hospice care. The aggressiveness of his cancer and the effects of the metastases already I believe that These findings support a life expectancy of 6 months or less. I attest that I have compose the above narrative based on my review of the patient's medical records, and or on my examination of the patient. Luis Fernando Benedict M.D. Associate medical technologist chief. [facility]
[2017-07-24 07:59] LABS: Eosinophils # 0.1 K/mcL (0.0-0.6); Lymphocytes # 2.1 K/mcL (0.6-4.6); Monocytes # 0.8 K/mcL (0.0-1.3); Neutrophils # 3.6 K/mcL (1.6-8.9); Platelet Estimate Normal (Normal)
[2017-07-24] MEDS: Insulin DETEMIR 100 UNIT/ML X5UNITS SQ SCH (08:17)
[2017-07-24] MEDS: Doxycycline 100 MG CAPSULE PO SCH (08:17)
[2017-07-24] MEDS: Cyanocobalamin (B-12) 1,000 MCG TABLET PO SCH (08:17)
[2017-07-24] MEDS: Insulin LISPRO 300 UNITS/3 ML VIAL SQ SCH (08:18)
--- NOTE | 2017-07-24 09:44 | Discharge Summary ---
<Gerry Gill - Last Filed: 07/24/17 09:47> Date of Encounter: 07/24/17 Time of Encounter: 09:38 - Discharge Diagnosis (1) Right sided weakness Priority: Primary Status: Acute (2) Abscess of skin Priority: Secondary Status: Acute Qualifiers: Site of cutaneous abscess: other site Qualified Code(s): L02.818 - Cutaneous abscess of other sites (3) GI bleed Priority: Secondary Status: Acute Qualifiers: GI bleed type/associated pathology: melena Qualified Code(s): K92.1 - Melena (4) Pneumonia Priority: Secondary Status: Acute Qualifiers: Pneumonia type: due to unspecified organism Laterality: left Lung location: upper lobe of lung Qualified Code(s): J18.1 - Lobar pneumonia, unspecified organism (5) Small cell lung cancer Priority: Secondary Status: Acute (6) Skin ulcer Priority: Secondary Status: Acute Qualifiers: Non-pressure ulcer stage: limited to breakdown of skin Qualified Code(s): L98.491 - Non-pressure chronic ulcer of skin of other sites limited to breakdown of skin (7) Acute metabolic encephalopathy Priority: Secondary Status: Resolved (8) Hyperglycemia Priority: Secondary Status: Acute (9) DVT prophylaxis Priority: Secondary Status: Acute Hospital course: Mr. Quintero is a 61 year old male who presented with PNA and anemia 2/2 GI bleed. 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 He presented to ER with generalized weakness for 1 day. He had significant weakness and dizziness on arrival. He also had a nonproductive cough. Was found to be anemic on arrival. Hb was 5.6. GI was consulted. Patient opted out of any invasive measures. Received 3U of pRBCs. Was initially waiting placement. Wound care was consulted for abscess in the groin area. Patient was started on vancomycin, and hen doxycycline. During his stay in the hospital, patient developed new onset R sided weakness; CT scan demonstrated midline shift. He refuses to be transferred to an outlying facility for neurosurgical evaluation. Started Decadron. Palliative spoke to patient again; Code status was switched to DNR- CC. Patient agreed to hospice. Patient will be discharged on hospice. Will be sent on doxycycline x 7 days. - Time Spent with Patient Total time spent providing and/or coordinating discharge services: Greater than 30 minutes (41 minutes) - Discharge Medications Prescriptions: Dexamethasone [Decadron] 4 mg PO BID #20 tab Doxycycline 100 mg PO BID #14 capsule LORazepam Oral Conc [Ativan Oral Conc] 1 mg PO Q4H 7 Days #30 mls Morphine Oral CONC [Roxanol] 0.25 ml SL Q4H PRN 5 Days #30 ml PRN Reason: sob or pain OxyCODONE Immed Rel [Roxicodone 5 MG] 5 mg PO Q3H PRN 5 Days #30 tablet PRN Reason: pain or sob Home Medications: Atorvastatin [Lipitor] 40 mg PO HS 05/09/16 [History] Cyanocobalamin (Vitamin B-12) [Vitamin B-12] 1,000 mcg SL DAILY 05/09/16 [ History] Quetiapine Fumarate [Seroquel] 400 mg PO HS 05/09/16 [History] clonazePAM [Klonopin] 1 mg PO TID PRN 05/09/16 [History] Acetaminophen [Non-Aspirin] 650 mg PO Q6H PRN 05/08/17 [History] Bisacodyl [Dulcolax] 5 mg PO BID 05/08/17 [History] Bisacodyl [Dulcolax] 10 mg RC DAILY PRN 05/08/17 [History] BuPROPion [Wellbutrin] 75 mg PO DAILY 05/08/17 [History] Escitalopram [Lexapro] 20 mg PO DAILY 05/08/17 [History] Famotidine [Heartburn Prevention] 20 mg PO BID 05/08/17 [History] Mirtazapine [Remeron] 30 mg PO HS 05/08/17 [History] Umeclidinium [place] [Incruse Ellipta] 1 puff IH DAILY 07/12/17 [History] Dexamethasone [Decadron] 4 mg PO BID #20 tab 07/24/17 [Rx] Doxycycline 100 mg PO BID #14 capsule 07/24/17 [Rx] LORazepam Oral Conc [Ativan Oral Conc] 1 mg PO Q4H 7 Days #30 mls 07/24/17 [Rx] Morphine Oral CONC [Roxanol] 0.25 ml SL Q4H PRN 5 Days #30 ml 07/24/17 [Rx] OxyCODONE Immed Rel [Roxicodone 5 MG] 5 mg PO Q3H PRN 5 Days #30 tablet [Rx] Allergies/Adverse Reactions: 3 Allergy/AdvReac Type Severity Reaction Status Date / Time sertraline [From Zoloft] AdvReac Diarrhea Verified 07/12/17 09:27 Date of admission: 07/12/17 01:04 Primary care physician: Jt Cárdenas DO Consults: 07/12/17 01:15 Consult to Palliative Care [CONS] Routine Comment: Consulting Provider: Palliative Care [facility] Reason for Consult: Hospice option discussion Call Completed: No 07/12/17 04:07 Consult to [facility] [CONS] Routine Reason for SW Consult: Home health 07/12/17 10:55 Consult to Surgery [CONS] Routine Consulting Provider: Dk Pendleton Reason for Consult: GI Bleed Time Notified: 10:50 Call Completed: Yes 07/12/17 19:22 Consult to Wound Care [CONS] Routine Reason for Consult: wound to coccxy and left groin that tunnel. Call Completed: No 07/13/17 19:27 Consult to Diabetes Education [CONS] Stat Comment: Reason for Consult: Please educate on diabetic diet. 07/15/17 13:53 Consult to Occupational Therapy [CONS] Routine Comment: Evaluate, develop and implement POC Reason for Consult: assess patient for strength Does patient have active BEDREST order?: No Is patient medically & hemodynamically stable?: Yes Patient assessed for mobility or mobilized this visit?: Yes Consult to Physical Therapy [CONS] Routine Comment: Evaluate, develop and implement POC Reason for Consult: asses patient strength Does patient have active BEDREST order?: No Is patient medically & hemodynamically stable?: Yes Patient assessed for mobility or mobilized this visit?: Yes 07/21/17 14:55 Consult to Oncology [CONS] Routine Consulting Provider: [facility] Reason for Consult: Patient has midline shift on CT scan; known history of metastatic small cell lung cancer with brain metastasis. Refuses transfer to an outlying facility for neurosurgical evaluation. Call Completed: No 07/22/17 10:29 Consult to Palliative Care [CONS] Routine Comment: Consulting Provider: Palliative Care [facility] Victoria Reason for Consult: now may be amendable to hospice, CT head with recurrent tumor/mass effect and associated neurological symptoms. declining radiotherapy/ chemotherapy Call Completed: Yes Discharging clinician: Gerry Gill Anticipated date of discharge: 07/24/17 - Constitutional Vitals: Temp Pulse Resp BP Pulse Ox 98.0 F 82 15 131/77 96 07/24/17 07:06 07/24/17 07:06 07/24/17 07:06 07/24/17 07:06 07/24/17 07:06 General appearance: Present: cooperative, A&O X 3, pleasant, no acute distress, answers questions appropriately - Head Head exam: Present: atraumatic, normocephalic - Eye Eye exam: Present: PERRL, conjuntiva pink, sclera anicteric Pupils: Present: PERRL - Neck Neck exam general surgery: Present: supple, trachea midline. Absent: lymphadenopathy - Respiratory Respiratory exam: Present: CTAB. Absent: accessory muscle use, rales, rhonchi, wheezes - Cardiovascular Cardiovascular exam: Present: RRR, +S1, +S2. Absent: diastolic murmur, gallop, rubs, systolic murmur - Extremities Exam Extremities exam: Present: warm, radial pulses palpable and symmetrical. Absent : calf tenderness, cyanotic, pedal edema - Skin Skin exam: Present: dry, intact - Patient Status Disposition: Hospice - Home Condition: Fair Overall status at discharge: patient is not back to baseline - Discharge Instructions Instructions: Oxycodone/Acetaminophen (By mouth), Lorazepam (By mouth), Morphine, Rapid Release (By mouth), Dexamethasone (By mouth), Chest Pain (DC), Gastrointestinal Bleeding (DC), Gastrointestinal Bleeding (GEN), Lung Cancer (DC ), Lung Cancer (GEN), Anemia (GEN), Pneumonia (DC) Follow Up With: Jt Cárdenas DO [Primary Care Provider] - - Diet and Activity Activity: increase activity as tolerated Diet: advance to your usual diet - VTE Reasons for not Prescribing Prophylaxis: Medical contraindication (Suspected GI bleed with anemia) Documentation of Mechanical Device: Intermittent pneumatic compression device <Temo Mandujano - Last Filed: 07/24/17 11:48> Date of Encounter: 07/24/17 Hospital course: Mr. Quintero is a 61 year old male - Time Spent with Patient Total time spent providing and/or coordinating discharge services: Date of admission: 07/12/17 01:04 Primary care physician: Jt Cárdenas DO Consults: 07/12/17 01:15 Consult to Palliative Care [CONS] Routine Comment: Consulting Provider: Palliative Care [facility] Victoria Reason for Consult: Hospice option discussion Call Completed: No 07/12/17 04:07 Consult to [place] [facility] [CONS] Routine Reason for SW Consult: Home health 07/12/17 10:55 Consult to Surgery [CONS] Routine Consulting Provider: Dk Pendleton Reason for Consult: GI Bleed Time Notified: 10:50 Call Completed: Yes 07/12/17 19:22 Consult to Wound Care [CONS] Routine Reason for Consult: wound to coccxy and left groin that tunnel. Call Completed: No 07/13/17 19:27 Consult to Diabetes Education [CONS] Stat Comment: Reason for Consult: Please educate on diabetic diet. 07/15/17 13:53 Consult to Occupational Therapy [CONS] Routine Comment: Evaluate, develop and implement POC Reason for Consult: assess patient for strength Does patient have active BEDREST order?: No Is patient medically & hemodynamically stable?: Yes Patient assessed for mobility or mobilized this visit?: Yes Consult to Physical Therapy [CONS] Routine Comment: Evaluate, develop and implement POC Reason for Consult: asses patient strength Does patient have active BEDREST order?: No Is patient medically & hemodynamically stable?: Yes Patient assessed for mobility or mobilized this visit?: Yes 07/21/17 14:55 Consult to Oncology [CONS] Routine Consulting Provider: [facility] Reason for Consult: Patient has midline shift on CT scan; known history of metastatic small cell lung cancer with brain metastasis. Refuses transfer to an outlying facility for neurosurgical evaluation. Call Completed: No 07/22/17 10:29 Consult to Palliative Care [CONS] Routine Comment: Consulting Provider: Palliative Care Maria Victoria Reason for Consult: now may be amendable to hospice, CT head with recurrent tumor/mass effect and associated neurological symptoms. declining radiotherapy/ chemotherapy Call Completed: Yes - Constitutional Vitals: Temp Pulse Resp BP Pulse Ox 98.6 F 84 15 133/74 96 07/24/17 11:22 07/24/17 11:22 07/24/17 11:22 07/24/17 11:22 07/24/17 11:22 - Attending Attestation Metastatic lung cancer, metastasis to brain untreatable The patient understands these not a curable condition Acute blood loss anemia secondary to possible GI bleed, refused scopes Stable after transfusion MRSA infection/ulcers/cysts and multiple areas, continue doxycycline day #4 Hospice to be arranged at home Time spent 40 minutes I examined this patient and my medical decision-making was reviewed with the Resident Physician. I agree with the documented findings, disposition and treatment plan as described except to the extent set forth below.
[2017-07-24 11:35] VITALS: BP 133/74
--- NOTE | 2017-07-24 13:18 | Physician Discharge Referral ---
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 For more information, call the [place] Tobacco Quit Line at 1-634-LSYL-NOW. - Transfer Medications Prescriptions: Dexamethasone [Decadron] 4 mg PO BID #20 tab Doxycycline 100 mg PO BID #14 capsule LORazepam Oral Conc [Ativan Oral Conc] 1 mg PO Q4H 7 Days #30 mls Morphine Oral CONC [Roxanol] 0.25 ml SL Q4H PRN 5 Days #30 ml PRN Reason: sob or pain OxyCODONE Immed Rel [Roxicodone 5 MG] 5 mg PO Q3H PRN 5 Days #30 tablet PRN Reason: pain or sob Home Medications: Atorvastatin [Lipitor] 40 mg PO HS 05/09/16 [History] Cyanocobalamin (Vitamin B-12) [Vitamin B-12] 1,000 mcg SL DAILY 05/09/16 [ History] Quetiapine Fumarate [Seroquel] 400 mg PO HS 05/09/16 [History] clonazePAM [Klonopin] 1 mg PO TID PRN 05/09/16 [History] Acetaminophen [Non-Aspirin] 650 mg PO Q6H PRN 05/08/17 [History] Bisacodyl [Dulcolax] 5 mg PO BID 05/08/17 [History] Bisacodyl [Dulcolax] 10 mg RC DAILY PRN 05/08/17 [History] BuPROPion [Wellbutrin] 75 mg PO DAILY 05/08/17 [History] Escitalopram [Lexapro] 20 mg PO DAILY 05/08/17 [History] Famotidine [Heartburn Prevention] 20 mg PO BID 05/08/17 [History] Mirtazapine [Remeron] 30 mg PO HS 05/08/17 [History] Umeclidinium [place] [Incruse Ellipta] 1 puff IH DAILY 07/12/17 [History] Dexamethasone [Decadron] 4 mg PO BID #20 tab 07/24/17 [Rx] Doxycycline 100 mg PO BID #14 capsule 07/24/17 [Rx] LORazepam Oral Conc [Ativan Oral Conc] 1 mg PO Q4H 7 Days #30 mls 07/24/17 [Rx] Morphine Oral CONC [Roxanol] 0.25 ml SL Q4H PRN 5 Days #30 ml 07/24/17 [Rx] OxyCODONE Immed Rel [Roxicodone 5 MG] 5 mg PO Q3H PRN 5 Days #30 tablet [Rx] Allergies/Adverse Reactions: 3 Allergy/AdvReac Type Severity Reaction Status Date / Time sertraline [From Zoloft] AdvReac Diarrhea Verified 07/12/17 09:27 Certification: Further, I certify that my clinical findings support that this patient is homebound (i.e. absences from home require considerable and taxing effort and are for medical reasons or congregational services or infrequently or short duration when for other reasons) because: Homebound Reason: Patient requires assistance of a person or device to safely leave home Attestation: My signature below is to certify that this patient is under my care and that I, or nurse practitioner, or a physician's itinerant teacher assistant working with me, has a face-to -face encounter with this patient.
== END 2017-07-24 12:50 | disposition hospice, home (50) | DRG 254 ==
LOC: EMEROO 17:05 → 2NENU 17:05
PROVIDERS: ADMIT Internal Medicine; ATTEND Family Medicine